=== PATIENT | male | born 1965 | race Caucasian/White ===

== ENCOUNTER 2018-01-01 12:54 | Inpatient (IN) | payer MEDICARE, OTHER ==
[2018-01-01 13:38] VITALS: BMI 38.4
--- NOTE | 2018-01-01 14:02 | PDOC ---
History of Present Illness - General Chief Complaint: Shortness of Breath Stated Complaint: SOB, SWOLLEN LEGS Time Seen by Provider: 01/01/18 13:42 - History of Present Illness Initial Comments: 01/01/18 15:22 The patient is a 52 year old male with a history of HTN, HLD, who presents for evaluation of SOB and lower extremity swelling. The patient reports that he does not normally follow with a physician and does not know his medical history very well. He reports a 2 week history of worsening lower extremity swelling. He also states a 1 week history of worsening SOB and dyspnea on exertion with orthopnea prompting his presentation to the ED for evaluation. The patient states that he has been having difficulty sleeping due to SOB at night as well and now can only walk 5 steps without becoming SOB. He denies fevers, chills, chest pain, nausea, vomiting, abdominal pain, or changes with urination or bowel movements. Past History - Past Medical History Allergies/Adverse Reactions: Allergies Allergy/AdvReac Type Severity Reaction Status Date / Time No Known Allergies Allergy Verified 01/01/18 13:22 Home Medications: Ambulatory Orders Metoprolol Succinate 25 mg PO DAILY 01/01/18 - Suicide/Smoking/Psychosocial Hx Smoking History: Never smoked Have you smoked in the past 12 months: No Information on smoking cessation initiated: No Hx Alcohol Use: No Drug/Substance Use Hx: No Review of Systems - Review of Systems Comments:: 01/01/18 15:32 Constitutional: No fevers, chills, fatigue, malaise HEENT: No Rhinorrhea, nasal congestion, visual changes Cardiovascular: No chest pain, syncope, palpitations, lightheadedness Respiratory: SOB. No Cough, Hemoptysis, Gastrointestinal: No Abdominal pain, Nausea, Vomiting, Constipation, Diarrhea, Melena Genitourinary: No Dysuria, Frequency, Urgency, Hesitancy, Hematuria, Flank pain Musculoskeletal: No Myalgia, arthralgia Skin: Lower extremity swelling. No rashes, itching, bruising, pallor Neurologic: No Headache, Dizziness, Numbness, Weakness, or Tingling Psychiatric: No Hallucinations. No SI or HI *Physical Exam - Vital Signs Last Vital Signs Temp Pulse Resp BP Pulse Ox 98.6 F 105 H 26 H 141/104 98 01/01/18 13:23 01/01/18 13:23 01/01/18 13:23 01/01/18 13:23 01/01/18 13:23 - Physical Exam Comments: 01/01/18 15:33 General Appearance: Nourished. No Apparent Distress HEENT: EOMI, VINOD. No Pharyngeal Erythema, Tonsillar Exudate, Tonsillar Erythema Neck: No Cervical Lymphadenopathy Respiratory/Chest: Diffuse crackles and rales auscultated on exam Cardiovascular: Regular Rhythm, Regular Rate. Systolic murmur noted on exam. No Gallops, Rubs Gastrointestinal/Abdominal: 3+ pitting abdominal edema noted. Normal Bowel Sounds, Soft. No Guarding, Rebound, Tenderness Musculoskeletal: No CVA Tenderness Extremity: 3+ pitting edema in the lower extremities. Normal Capillary Refill Integumentary: Normal Color, Dry, Warm Neurologic: Fully Oriented, Alert, Normal Mood/Affect, Normal Response, Heart Score/ECG Review #1 ECG reviewed & interpreted by me at: 15:36 (Sinus Tachycardic) General ECG Interpretation: Sinus Rhythm, Normal Rate, Normal Intervals, No acute ischemic changes ED Treatment Course - LABORATORY CBC & Chemistry Diagram: 01/01/18 14:25 01/01/18 14:25 Medical Decision Making - Medical Decision Making 01/01/18 15:36 The patient is a 52 year old male with a history of HTN, HLD, who presents for evaluation of SOB and lower extremity swelling. Differential includes but is not limited to: CHF exacerbation, COPD, ACS, pneumonia, infectious, metabolic derangement. Given the patient's physical exam, it is likely the patient symptoms are due to a CHF exacerbation. We will obtain a cbc, cmp, troponin, bnp, ekg, chest plain film to evaluate further. We will treat the patient with lasix here in the ED. We will continue to monitor and reassess. 01/01/18 18:35 CBC is unremarkable. cmp is unremarkable, troponin is elevated to .15 and bnp is elevated to 2200. Chest plain film demonstrates signs of congestive findings concerning for chf as read by our radiologist. We believe the patient requires admission for further management of his symptoms. We discussed the case with Dr. Alvarez who accepted the patient for admission. *DC/Admit/Observation/Transfer Diagnosis at time of Disposition: CHF (congestive heart failure) Qualifiers: Heart failure type: unspecified Heart failure chronicity: acute Qualified Code( s): I50.9 - Heart failure, unspecified - Discharge Dispostion Condition at time of disposition: Guarded Admit: Yes - Referrals - Patient Instructions - Post Discharge Activity
--- NOTE | 2018-01-01 14:13 | PDOC ---
Attending Attestation - HPI HPI: 01/01/18 14:59 The patient is a 52 year old male with a significant PMH of HTN, HLD, and CHF who presents to the emergency department with lower extremity swelling for the past 2 weeks and SOB, dyspnea on exertion, and orthopnea for the past week. The patient states he does not follow up with a PCP. The patient is not currently on any water pills. The patient denies chest pain, headache and dizziness. Denies fever, chills, nausea, vomit, diarrhea and constipation. Denies dysuria, frequency, urgency and hematuria. Allergies: NKA Past surgical history: None reported Social history: No reported alcohol, drug or cigarette use. <Radha Roth - Last Filed: 01/01/18 14:59> - Resident Resident Name: Guy Avila - ED Attending Attestation I have performed the following: I have examined & evaluated the patient, The case was reviewed & discussed with the resident, I agree w/resident's findings & plan, Exceptions are as noted - Physicial Exam PE: GENERAL: Awake, alert, and fully oriented, in no acute distress HEAD: No signs of trauma EYES: PERRLA, EOMI, sclera anicteric, conjunctiva clear ENT: Auricles normal inspection, hearing grossly normal, nares patent, oropharynx clear without exudates. Moist mucosa NECK: Normal ROM, supple, no lymphadenopathy, JVD, or masses LUNGS: +Crackles at bases B/L. Good air entry B/L. HEART: Regular rate and rhythm, normal S1 and S2, no murmurs, rubs or gallops ABDOMEN: Soft, nontender, normoactive bowel sounds. No guarding, no rebound. No masses EXTREMITIES: Normal range of motion, 3+ edema to the level of lower abdomen. No clubbing or cyanosis. No cords, erythema, or tenderness NEUROLOGICAL: Cranial nerves II through XII grossly intact. Normal speech, normal gait SKIN: Warm, Dry, normal turgor, no rashes or lesions noted. - Medical Decision Making Pt with clear signs of CHF, likely due to med nonadherence. Will send labs, obtain CXR and plan for admission. <Angelica Adams - Last Filed: 01/02/18 11:17>
[2018-01-01] MEDS ORDERED: FUROSEMIDE 40 MG/4 ML INJECTABLE VIAL IVPUSH ONE (14:21)
[2018-01-01] MEDS ORDERED: FUROSEMIDE 40 MG/4 ML INJECTABLE VIAL ONE (14:38)
[2018-01-01 15:22] LABS: ALBUMIN 3.1 g/dl (3.4-5.0); ANION GAP 6 (8-16); BILIRUBIN,TOTAL 1.1 mg/dL (0.2-1.0); BLOOD UREA NITROGEN 9 mg/dL (7-18); CALCIUM 8.6 mg/dL (8.5-10.1); CHLORIDE 99 mmol/L (98-107); CO2 29 mmol/L (21-32); CREATININE 0.8 mg/dL (0.7-1.3); GLUCOSE,RANDOM 90 mg/dL (74-106); POTASSIUM 4.1 mmol/L (3.5-5.1); SGOT/AST 39 U/L (15-37); SGPT/ALT 10 U/L (12-78); SODIUM 134 mmol/L (136-145); TOT PROT 9.6 g/dl (6.4-8.2)
[2018-01-01 15:24] LABS: ALK PHOS 95 U/L (45-117)
[2018-01-01 15:26] LABS: BASO % 1.1 % (0-2.0); EOS % 1.1 % (0-4.5); HEMATOCRIT 28.2 % (35.4-49); HEMOGLOBIN 8.7 GM/dL (11.7-16.9); LYMPH % 26.7 % (8-40); MCH 21.9 pg (25.7-33.7); MCHC 30.7 g/dl (32.0-35.9); MEAN CELL VOLUME 71.4 fl (80-96); MEAN PLT VOLUME 8.7 fl (7.5-11.1); MONO % 15.3 % (3.8-10.2); NEUT % 55.8 % (42.8-82.8); PLATELET COUNT 101 K/MM3 (134-434); RBC 3.95 M/mm3 (4.00-5.60); RDW 24.4 % (11.9-15.9); WHITE BLOOD COUNT 4.4 K/mm3 (4.0-10.0)
--- NOTE | 2018-01-01 18:20 | HP ---
Admitting History and Physical - Primary Care Physician PCP: Ekaterina Alvarez - Admission History of Present Illness: 52 year old male with a history of HTN, HLD, who presents for evaluation of SOB and lower extremity swelling. The patient reports that he does not normally follow with a physician and does not know his medical history very well. He reports a 2 week history of worsening lower extremity swelling. He also states a 1 week history of worsening SOB and dyspnea on exertion with orthopnea prompting his presentation to the ED for evaluation. The patient states that he has been having difficulty sleeping due to SOB at night as well and now can only walk 5 steps without becoming SOB. - Past Medical History Cardiovascular: Yes: HTN, Hyperlipdemia - Smoking History Smoking history: Never smoked Have you smoked in the past 12 months: No - Alcohol/Substance Use Hx Alcohol Use: No Home Medications - Allergies Allergies/Adverse Reactions: Allergies Allergy/AdvReac Type Severity Reaction Status Date / Time No Known Allergies Allergy Verified 01/01/18 13:22 - Home Medications Home Medications: Ambulatory Orders Metoprolol Succinate 25 mg PO DAILY 01/01/18 Physical Examination Vital Signs: Vital Signs Temperature 98.6 F 01/01/18 13:23 Pulse Rate 107 H 01/01/18 16:17 Respiratory Rate 24 01/01/18 16:17 Blood Pressure 129/90 01/01/18 16:17 O2 Sat by Pulse Oximetry (%) 96 01/01/18 16:17 Constitutional: Yes: No Distress HENT: Yes: Atraumatic Neck: Yes: Supple Cardiovascular: Yes: Regular Rate and Rhythm Respiratory: Yes: CTA Bilaterally Gastrointestinal: Yes: Normal Bowel Sounds Edema: Yes Edema: LLE: 2+, RLE: 2+ Neurological: Yes: Alert, Oriented Labs: CBC, BMP 01/01/18 14:25 01/01/18 14:25 Problem List - Problems (1) CHF (congestive heart failure) Assessment/Plan: on iv lasix monitor cardiology consult Code(s): I50.9 - HEART FAILURE, UNSPECIFIED Qualifiers: Heart failure type: systolic Heart failure chronicity: acute Qualified Code(s): I50.21 - Acute systolic (congestive) heart failure (2) Subendocardial ischemia Assessment/Plan: fu troponins Code(s): I24.8 - OTHER FORMS OF ACUTE ISCHEMIC HEART DISEASE (3) Thrombocytopenia Assessment/Plan: monitor Code(s): D69.6 - THROMBOCYTOPENIA, UNSPECIFIED (4) Cellulitis of right leg Assessment/Plan: iv abx id consult Code(s): L03.115 - CELLULITIS OF RIGHT LOWER LIMB Assessment/Plan Laboratory Tests 01/01/18 01/01/18 14:25 14:25 WBC 4.4 RBC 3.95 L Hgb 8.7 L Hct 28.2 L MCV 71.4 L MCH 21.9 L MCHC 30.7 L RDW 24.4 H Plt Count 101 L MPV 8.7 Neutrophils % 55.8 Lymphocytes % 26.7 Monocytes % 15.3 H Eosinophils % 1.1 Basophils % 1.1 Sodium 134 L Potassium 4.1 Chloride 99 Carbon Dioxide 29 Anion Gap 6 L BUN 9 Creatinine 0.8 Creat Clearance w eGFR > 60 Random Glucose 90 Calcium 8.6 Total Bilirubin 1.1 H AST 39 H ALT 10 L Alkaline Phosphatase 95 Creatine Kinase 250 Creatine Kinase Index 2.9 CK-MB (CK-2) 7.376 H Troponin I 0.15 H B-Natriuretic Peptide 2294.20 H Total Protein 9.6 H Albumin 3.1 L Active Medications Generic Name Dose Route Start Last Admin Trade Name Freq PRN Reason Stop Dose Admin Furosemide 40 mg 01/02/18 14:00 01/03/18 14:18 Lasix Injection - IVPUSH 40 mg BIDLASIX [facility]ION Administration Heparin Sodium (Porcine) 5,000 unit 01/01/18 22:00 01/03/18 09:01 Heparin - SQ Not Given BID ZION Ampicillin Sodium/Sulbactam 100 mls @ 200 mls/hr 01/02/18 18:00 01/03/18 09: 01 Sodium 3 gm/ Sodium Chloride IVPB 200 mls/hr Q8H-IV ZION Administration Losartan Potassium 25 mg 01/02/18 12:30 01/03/18 09:01 Cozaar - PO 25 mg DAILY [facility]ION Administration Metoprolol Succinate 25 mg 01/02/18 10:00 01/03/18 09:01 Toprol Xl - PO 25 mg DAILY [facility]ION Administration Spironolactone 25 mg 01/03/18 10:30 01/03/18 11:23 Aldactone - PO 25 mg DAILY ZION Administration
[2018-01-01] MEDS ORDERED: CEFTRIAXONE 1 G/50 ML PREMIX 50 ML IVPB SCH (18:30)
[2018-01-01] MEDS: HEPARIN NA (PORCINE) 5,000 UNITS/ML 1ML VIAL SQ SCH (21:55)
[2018-01-02 06:21] LABS: BASO % 0.9 % (0-2.0); HEMATOCRIT 25.5 % (35.4-49); HEMOGLOBIN 8.1 GM/dL (11.7-16.9); LYMPH % 24.3 % (8-40); MCH 22.3 pg (25.7-33.7); MCHC 31.8 g/dl (32.0-35.9); MEAN PLT VOLUME 8.7 fl (7.5-11.1); MONO % 19.8 % (3.8-10.2); PLATELET COUNT 98 K/MM3 (134-434); RBC 3.64 M/mm3 (4.00-5.60); RDW 24.2 % (11.9-15.9); WHITE BLOOD COUNT 4.2 K/mm3 (4.0-10.0)
[2018-01-02 06:38] LABS: ADD RBC MORPHOLOGY YES
[2018-01-02 06:40] LABS: ANISOCYTOSIS 3+
[2018-01-02 06:56] LABS: ALBUMIN 2.8 g/dl (3.4-5.0); BLOOD UREA NITROGEN 13 mg/dL (7-18); CHLORIDE 96 mmol/L (98-107); GLUCOSE,RANDOM 107 mg/dL (74-106); POTASSIUM 3.7 mmol/L (3.5-5.1); SGOT/AST 43 U/L (15-37); SGPT/ALT 9 U/L (12-78); SODIUM 133 mmol/L (136-145)
[2018-01-02 06:58] LABS: ALK PHOS 85 U/L (45-117); ANION GAP 6 (8-16); BILIRUBIN,TOTAL 1.4 mg/dL (0.2-1.0); CO2 31 mmol/L (21-32); CREATININE 0.9 mg/dL (0.7-1.3)
--- NOTE | 2018-01-02 08:57 | EKG ---
Test Reason : Blood Pressure : / mmHG Vent. Rate : 105 BPM Atrial Rate : 105 BPM P-R Int : 158 ms QRS Dur : 100 ms QT Int : 364 ms P-R-T Axes : 042 -01 077 degrees QTc Int : 481 ms SINUS TACHYCARDIA POSSIBLE LEFT ATRIAL ENLARGEMENT BORDERLINE ECG NO PREVIOUS ECGS AVAILABLE Confirmed by Jacob Dc MD ([id number]) on 01/02/2018 8:56:53 AM Referred By: Confirmed By:Jacob Dc MD
--- NOTE | 2018-01-02 08:57 | CON.CARD ---
Consult Consult Specialty:: Cardiology Referred by:: Ekaterina Alvarez MD Reason for Consultation:: CHF - History of Present Illness Chief Complaint: Dyspnea on exertion, orthopnea History of Present Illness: 52 year old male with a history of HTN, HLD, who presents for evaluation of SOB with exertion, orthopnea and lower extremity swelling for last several weeks with decreased exercise capacity, does not have medcation f/u, reports diet indiscretion and denies chest pain, near or true syncope, palpitations, PND, denies NSAID use. - History Source History Provided By: Patient Limitations to Obtaining History: No Limitations - Past Medical History Cardio/Vascular: Yes: HTN, Hyperlipdemia - Alcohol/Substance Use Hx Alcohol Use: No - Smoking History Smoking history: Never smoked Have you smoked in the past 12 months: No Home Medications - Allergies Allergies/Adverse Reactions: Allergies Allergy/AdvReac Type Severity Reaction Status Date / Time No Known Allergies Allergy Verified 01/01/18 13:22 - Home Medications Home Medications: Ambulatory Orders Metoprolol Succinate 25 mg PO DAILY 01/01/18 Review of Systems - Review of Systems Cardiovascular: reports: Edema, Shortness of Breath Respiratory: reports: Orthopnea Vital Signs: Vital Signs Temperature 98.5 F 01/02/18 05:59 Pulse Rate 104 H 01/02/18 05:59 Respiratory Rate 20 01/02/18 05:59 Blood Pressure 119/81 01/02/18 05:59 O2 Sat by Pulse Oximetry (%) 95 01/01/18 21:00 Constitutional: Yes: No Distress, Calm Respiratory: Yes: Regular, Diminished Gastrointestinal: Yes: Normal Bowel Sounds, Soft Cardiovascular: Yes: Regular Rate and Rhythm JVD: No Carotid Bruit: No Heart Sounds: Yes: S1, S2 Murmur: Yes: Systolic Murmur, Grade 1 Edema: Yes Edema: LLE: 2+, RLE: 2+ - Other Data Labs, Other Data: CBC, BMP 01/02/18 06:05 01/02/18 06:05 Troponin, BNP 01/01/18 14:25 Troponin I 0.15 H B-Natriuretic Peptide 2294.20 H Troponin, BNP 01/01/18 14:25 Troponin I 0.15 H B-Natriuretic Peptide 2294.20 H NSR LAE Imaging - Results Chest X-ray: Report Reviewed (CHF) Problem List - Problems (1) Subendocardial ischemia Code(s): I24.8 - OTHER FORMS OF ACUTE ISCHEMIC HEART DISEASE (2) Anemia Code(s): D64.9 - ANEMIA, UNSPECIFIED Qualifiers: Anemia type: unspecified type Qualified Code(s): D64.9 - Anemia, unspecified (3) Thrombocytopenia Code(s): D69.6 - THROMBOCYTOPENIA, UNSPECIFIED (4) CHF (congestive heart failure) Code(s): I50.9 - HEART FAILURE, UNSPECIFIED Qualifiers: Heart failure type: unspecified Heart failure chronicity: acute Qualified Code(s): I50.9 - Heart failure, unspecified Assessment/Plan 1. Acute on chronic diastolic failure 2. Subendocardial ischemia 3. Anemia, thrombocytopenia P:1. IV diuresis with monitor diuretic response, renal fxn, electrolytes 2. Trend trops to document peak 3. Continue Toprol XL 25 qd, start losartan 25 qd with uptitration as hemodynamics tolerate 4. Thank you for consultative opportunity
[2018-01-02] MEDS ORDERED: PT OWN MED DRAWER 7, Y5N ONE (09:57)
[2018-01-02] MEDS ORDERED: FUROSEMIDE 40 MG/4 ML INJECTABLE VIAL IVPUSH SCH (10:00)
[2018-01-02] MEDS: metoPROLOL SUCCINATE 25 MG TAB.SR.24H (FP) PO SCH (10:39)
[2018-01-02] MEDS: HEPARIN NA (PORCINE) 5,000 UNITS/ML 1ML VIAL SQ SCH ×2 (10:39→21:00)
[2018-01-02] MEDS: LOSARTAN POTASSIUM 25 MG TABLET PO SCH (13:32)
[2018-01-02] MEDS: FUROSEMIDE 40 MG/4 ML INJECTABLE VIAL IVPUSH SCH (13:32)
--- NOTE | 2018-01-02 16:00 | CON.ID ---
Consult Consult Specialty:: infectious diseases Reason for Consultation:: cellulitis of the rt leg - History of Present Illness Chief Complaint: Dyspnea on exertion, orthopnea,swelling and redness of the legs History of Present Illness: 52 year old male with a history of HTN, HLD, who presents for evaluation of SOB with exertion, orthopnea and lower extremity swelling for last several weeks with decreased exercise capacity, patient does not follow up much patient also noted that the right leg was more swollen and red otherwise he feels ok. patient mentions that he has been having this swelling off and on for quite some time currently he is stable - History Source History Provided By: Patient Limitations to Obtaining History: No Limitations - Past Medical History Cardio/Vascular: Yes: HTN, Hyperlipdemia - Alcohol/Substance Use Hx Alcohol Use: No - Smoking History Smoking history: Never smoked Have you smoked in the past 12 months: No Home Medications - Allergies Allergies/Adverse Reactions: Allergies Allergy/AdvReac Type Severity Reaction Status Date / Time No Known Allergies Allergy Verified 01/01/18 13:22 - Home Medications Home Medications: Ambulatory Orders Metoprolol Succinate 25 mg PO DAILY 01/01/18 Review of Systems - Review of Systems Constitutional: reports: No Symptoms Eyes: reports: No Symptoms HENT: reports: No Symptoms Neck: reports: No Symptoms Cardiovascular: reports: Shortness of Breath Respiratory: reports: SOB, SOB on Exertion Gastrointestinal: reports: No Symptoms Genitourinary: reports: No Symptoms Musculoskeletal: reports: Other (edema of the legs) Integumentary: reports: Change in Color, Erythema (rt leg) Neurological: reports: No Symptoms Endocrine: reports: No Symptoms Hematology/Lymphatic: reports: No Symptoms Psychiatric: reports: No Symptoms Physical Exam Vital Signs: Vital Signs Temperature 98.1 F 01/02/18 14:00 Pulse Rate 87 01/02/18 14:00 Respiratory Rate 20 01/02/18 13:31 Blood Pressure 100/74 01/02/18 14:00 O2 Sat by Pulse Oximetry (%) 95 01/02/18 09:00 Constitutional: Yes: Well Nourished, No Distress, Calm Eyes: Yes: Conjunctiva Clear HENT: Yes: Atraumatic Cardiovascular: Yes: S1, S2, Other (murmur present) Respiratory: Yes: Regular, CTA Bilaterally Gastrointestinal: Yes: Normal Bowel Sounds, Soft Musculoskeletal: Yes: Other Extremities: Yes: Erythema (rt) Edema: LLE: 2+, RLE: 2+ Integumentary: Yes: Erythema Neurological: Yes: Alert, Oriented Labs: CBC, BMP 01/02/18 06:05 01/02/18 06:05 Imaging - Results Chest X-ray: Report Reviewed, Image Reviewed Assessment/Plan Problem List - Problems (1) cellulitis of the rt ext (2) Anemia Code(s): D64.9 - ANEMIA, UNSPECIFIED Qualifiers: Anemia type: unspecified type Qualified Code(s): D64.9 - Anemia, unspecified (3) Thrombocytopenia Code(s): D69.6 - THROMBOCYTOPENIA, UNSPECIFIED (4) CHF (congestive heart failure) Code(s): I50.9 - HEART FAILURE, UNSPECIFIED Qualifiers: Heart failure type: unspecified Heart failure chronicity: acute Qualified Code(s): I50.9 - Heart failure, unspecified plan continue as per cardiology will start patient on unasyn rest as per primary diuresis
--- NOTE | 2018-01-02 17:22 | PN ---
Progress Note, Physician History of Present Illness: feeling good - Current Medication List Current Medications: Active Medications Furosemide (Lasix Injection -) 40 mg IVPUSH BIDLASIX [facility] Last Admin: 01/02/18 13:32 Dose: 40 mg Heparin Sodium (Porcine) (Heparin -) 5,000 unit SQ BID [facility] Last Admin: 01/02/18 10:39 Dose: 5,000 unit Ampicillin Sodium/Sulbactam (Sodium 3 gm/ Sodium Chloride) 100 mls @ 200 mls/ hr IVPB Q8H-IV ZION Losartan Potassium (Cozaar -) 25 mg PO DAILY [facility] Last Admin: 01/02/18 13:32 Dose: Not Given Metoprolol Succinate (Toprol Xl -) 25 mg PO DAILY [facility] Last Admin: 01/02/18 10:39 Dose: 25 mg - Objective Vital Signs: Vital Signs Temperature 98.1 F 01/02/18 14:00 Pulse Rate 87 01/02/18 14:00 Respiratory Rate 20 01/02/18 13:31 Blood Pressure 100/74 01/02/18 14:00 O2 Sat by Pulse Oximetry (%) 95 01/02/18 09:00 Constitutional: Yes: No Distress HENT: Yes: Atraumatic Neck: Yes: Supple Cardiovascular: Yes: Regular Rate and Rhythm Respiratory: Yes: CTA Bilaterally Gastrointestinal: Yes: Normal Bowel Sounds Edema: Yes Neurological: Yes: Alert, Oriented Labs: CBC, BMP 01/02/18 06:05 01/02/18 06:05 Problem List - Problems (1) CHF (congestive heart failure) Assessment/Plan: on iv lasix monitor cardiology consult Code(s): I50.9 - HEART FAILURE, UNSPECIFIED Qualifiers: Heart failure type: systolic Heart failure chronicity: acute Qualified Code(s): I50.21 - Acute systolic (congestive) heart failure (2) Subendocardial ischemia Assessment/Plan: fu troponins Code(s): I24.8 - OTHER FORMS OF ACUTE ISCHEMIC HEART DISEASE (3) Thrombocytopenia Assessment/Plan: monitor Code(s): D69.6 - THROMBOCYTOPENIA, UNSPECIFIED (4) Cellulitis of right leg Assessment/Plan: iv abx id consult Code(s): L03.115 - CELLULITIS OF RIGHT LOWER LIMB
[2018-01-02] MEDS: AMPICILLIN NA/SULBACTAM NA 3 GM in SODIUM CHLORIDE 100 ML IVPB SCH (17:48)
[2018-01-02] MEDS ORDERED: ALBUTEROL SO4 2.5/IPRATROPIUM 0.5 INH SOL 3 ML VIAL.NEB. NEB ONE (20:48)
[2018-01-03] MEDS: AMPICILLIN NA/SULBACTAM NA 3 GM in SODIUM CHLORIDE 100 ML IVPB SCH ×3 (01:46→17:43)
[2018-01-03] MEDS: FUROSEMIDE 40 MG/4 ML INJECTABLE VIAL IVPUSH SCH ×2 (05:22→14:18)
[2018-01-03] MEDS: LOSARTAN POTASSIUM 25 MG TABLET PO SCH (09:01)
[2018-01-03] MEDS: metoPROLOL SUCCINATE 25 MG TAB.SR.24H (FP) PO SCH (09:01)
[2018-01-03] MEDS: HEPARIN NA (PORCINE) 5,000 UNITS/ML 1ML VIAL SQ SCH ×2 (09:01→21:18)
--- NOTE | 2018-01-03 10:11 | PN ---
Progress Note, Physician History of Present Illness: SOB with exertion, orthopnea and lower extremity swelling improving with diuresis. - Current Medication List Current Medications: Active Medications Furosemide (Lasix Injection -) 40 mg IVPUSH BIDLASIX [facility] Last Admin: 01/03/18 05:22 Dose: 40 mg Heparin Sodium (Porcine) (Heparin -) 5,000 unit SQ BID [facility] Last Admin: 01/03/18 09:01 Dose: Not Given Ampicillin Sodium/Sulbactam (Sodium 3 gm/ Sodium Chloride) 100 mls @ 200 mls/ hr IVPB Q8H-IV [facility] Last Admin: 01/03/18 09:01 Dose: 200 mls/hr Losartan Potassium (Cozaar -) 25 mg PO DAILY [facility] Last Admin: 01/03/18 09:01 Dose: 25 mg Metoprolol Succinate (Toprol Xl -) 25 mg PO DAILY [facility] Last Admin: 01/03/18 09:01 Dose: 25 mg - Objective Vital Signs: Vital Signs Temperature 98 F 01/03/18 07:50 Pulse Rate 88 01/03/18 07:50 Respiratory Rate 20 01/03/18 08:00 Blood Pressure 123/80 01/03/18 07:50 O2 Sat by Pulse Oximetry (%) 94 L 01/03/18 08:00 Constitutional: Yes: No Distress, Calm Neck: Yes: Supple Cardiovascular: Yes: Regular Rate and Rhythm, Murmur (2/6 SM) Respiratory: Yes: Regular, Diminished Gastrointestinal: Yes: Normal Bowel Sounds, Soft, Abdomen, Obese Edema: Yes Edema: LLE: 1+, RLE: 1+ Labs: CBC, BMP 01/02/18 06:05 01/02/18 06:05 Problem List - Problems (1) Subendocardial ischemia Code(s): I24.8 - OTHER FORMS OF ACUTE ISCHEMIC HEART DISEASE (2) Anemia Code(s): D64.9 - ANEMIA, UNSPECIFIED Qualifiers: Anemia type: unspecified type Qualified Code(s): D64.9 - Anemia, unspecified (3) Thrombocytopenia Code(s): D69.6 - THROMBOCYTOPENIA, UNSPECIFIED (4) CHF (congestive heart failure) Code(s): I50.9 - HEART FAILURE, UNSPECIFIED Qualifiers: Heart failure type: systolic Heart failure chronicity: acute Qualified Code(s): I50.21 - Acute systolic (congestive) heart failure (5) Aortic stenosis, severe Code(s): I35.0 - NONRHEUMATIC AORTIC (VALVE) STENOSIS Assessment/Plan 01/02/18 Echo: Moderate dilated LV with severely decreased LV fxn, normal RV size and fxn, mod pulm HTN, mod-severe aortic stenosis DIANA 0.66 cm^2, MG 34 mmHg 1. Acute on chronic systolic failure 2. Moderate to severe aortic valve stenosis 2. Subendocardial ischemia 3. Anemia, thrombocytopenia P:1. IV diuresis with monitor diuretic response, renal fxn, electrolytes 2. Trops have peaked 3. Continue Toprol XL 25 qd, losartan 25 qd and add aldactone 25 qd with uptitration as hemodynamics tolerate 4. Eventually R&LHc for evaluation of cardiomyopathy, severity of aortic stenosis (transvalvular aortic valve gradient) once euvolemic
[2018-01-03] MEDS: SPIRONOLACTONE 25 MG TABLET (FP) PO SCH (11:23)
--- NOTE | 2018-01-03 17:07 | EKG ---
Test Reason : Blood Pressure : / mmHG Vent. Rate : 083 BPM Atrial Rate : 083 BPM P-R Int : 162 ms QRS Dur : 104 ms QT Int : 438 ms P-R-T Axes : 000 176 110 degrees QTc Int : 514 ms NORMAL SINUS RHYTHM RIGHT AXIS DEVIATION PROLONGED QT ABNORMAL ECG WHEN COMPARED WITH ECG OF 01-JAN-2018 14:24, QRS AXIS SHIFTED RIGHT Confirmed by HELGA DEL ANGEL MD ([id number]) on 01/03/2018 5:06:50 PM Referred By: KARL SAMUEL Confirmed By:HELGA DEL ANGEL MD
--- NOTE | 2018-01-03 17:35 | PN ---
Progress Note, Physician History of Present Illness: doing well - Current Medication List Current Medications: Active Medications Furosemide (Lasix Injection -) 40 mg IVPUSH BIDLASIX [facility] Last Admin: 01/03/18 14:18 Dose: 40 mg Heparin Sodium (Porcine) (Heparin -) 5,000 unit SQ BID [facility] Last Admin: 01/03/18 09:01 Dose: Not Given Ampicillin Sodium/Sulbactam (Sodium 3 gm/ Sodium Chloride) 100 mls @ 200 mls/ hr IVPB Q8H-IV [facility] Last Admin: 01/03/18 09:01 Dose: 200 mls/hr Losartan Potassium (Cozaar -) 25 mg PO DAILY [facility] Last Admin: 01/03/18 09:01 Dose: 25 mg Metoprolol Succinate (Toprol Xl -) 25 mg PO DAILY [facility] Last Admin: 01/03/18 09:01 Dose: 25 mg Spironolactone (Aldactone -) 25 mg PO DAILY [facility] Last Admin: 01/03/18 11:23 Dose: 25 mg - Objective Vital Signs: Vital Signs Temperature 99.1 F 01/03/18 13:25 Pulse Rate 82 01/03/18 13:25 Respiratory Rate 20 01/03/18 13:25 Blood Pressure 93/69 01/03/18 13:25 O2 Sat by Pulse Oximetry (%) 94 L 01/03/18 08:00 Constitutional: Yes: No Distress HENT: Yes: Atraumatic Neck: Yes: Supple Cardiovascular: Yes: Regular Rate and Rhythm Respiratory: Yes: CTA Bilaterally Gastrointestinal: Yes: Normal Bowel Sounds Extremities: Yes: Other (cellulitis R carolin improving) Edema: LLE: 2+, RLE: 2+ Peripheral Pulses WNL: Yes Neurological: Yes: Alert, Oriented Labs: CBC, BMP 01/02/18 06:05 01/02/18 06:05 Problem List - Problems (1) CHF (congestive heart failure) Assessment/Plan: on iv lasix monitor cardiology consult Code(s): I50.9 - HEART FAILURE, UNSPECIFIED Qualifiers: Heart failure type: systolic Heart failure chronicity: acute Qualified Code(s): I50.21 - Acute systolic (congestive) heart failure (2) Subendocardial ischemia Assessment/Plan: fu troponins Code(s): I24.8 - OTHER FORMS OF ACUTE ISCHEMIC HEART DISEASE (3) Thrombocytopenia Assessment/Plan: monitor Code(s): D69.6 - THROMBOCYTOPENIA, UNSPECIFIED (4) Cellulitis of right leg Assessment/Plan: iv abx id consult Code(s): L03.115 - CELLULITIS OF RIGHT LOWER LIMB (5) Aortic stenosis, severe Assessment/Plan: for cardiac cath per cardiology Code(s): I35.0 - NONRHEUMATIC AORTIC (VALVE) STENOSIS
[2018-01-04] MEDS ORDERED: PT OWN MED DRAWER 7, Y5N ONE ×2 (01:32→17:27)
[2018-01-04] MEDS: AMPICILLIN NA/SULBACTAM NA 3 GM in SODIUM CHLORIDE 100 ML IVPB SCH ×3 (01:39→17:33)
[2018-01-04] MEDS: FUROSEMIDE 40 MG/4 ML INJECTABLE VIAL IVPUSH SCH (06:40)
[2018-01-04 06:58] LABS: HEMATOCRIT 26.3 % (35.4-49); HEMOGLOBIN 7.9 GM/dL (11.7-16.9); MCH 21.5 pg (25.7-33.7); MCHC 30.1 g/dl (32.0-35.9); MEAN CELL VOLUME 71.4 fl (80-96); PLATELET COUNT 90 K/MM3 (134-434); RBC 3.68 M/mm3 (4.00-5.60); WHITE BLOOD COUNT 4.8 K/mm3 (4.0-10.0)
[2018-01-04 07:00] LABS: ANION GAP 10 (8-16); BLOOD UREA NITROGEN 21 mg/dL (7-18); CALCIUM 8.4 mg/dL (8.5-10.1); CHLORIDE 97 mmol/L (98-107); CO2 28 mmol/L (21-32); CREATININE 1.1 mg/dL (0.7-1.3); GLUCOSE,RANDOM 131 mg/dL (74-106); POTASSIUM 3.5 mmol/L (3.5-5.1); SODIUM 135 mmol/L (136-145)
[2018-01-04 07:08] LABS: INR 1.75 (0.82-1.09); PROTHROMBIN TIME (PATIENT) 19.8 SEC (9.98-11.88)
[2018-01-04] MEDS: LOSARTAN POTASSIUM 25 MG TABLET PO SCH (09:32)
[2018-01-04] MEDS: metoPROLOL SUCCINATE 25 MG TAB.SR.24H (FP) PO SCH (09:32)
[2018-01-04] MEDS: HEPARIN NA (PORCINE) 5,000 UNITS/ML 1ML VIAL SQ SCH ×2 (09:32→22:01)
[2018-01-04] MEDS: SPIRONOLACTONE 25 MG TABLET (FP) PO SCH (09:32)
--- NOTE | 2018-01-04 10:41 | PN ---
Progress Note, Physician History of Present Illness: SOB with exertion, orthopnea and lower extremity swelling improving with diuresis. - Current Medication List Current Medications: Active Medications Furosemide (Lasix Injection -) 40 mg IVPUSH BIDLASIX [facility] Last Admin: 01/04/18 06:40 Dose: 40 mg Heparin Sodium (Porcine) (Heparin -) 5,000 unit SQ BID [facility] Last Admin: 01/04/18 09:32 Dose: 5,000 unit Ampicillin Sodium/Sulbactam (Sodium 3 gm/ Sodium Chloride) 100 mls @ 200 mls/ hr IVPB Q8H-IV [facility] Last Admin: 01/04/18 09:31 Dose: 200 mls/hr Losartan Potassium (Cozaar -) 25 mg PO DAILY [facility] Last Admin: 01/04/18 09:32 Dose: 25 mg Metoprolol Succinate (Toprol Xl -) 25 mg PO DAILY [facility] Last Admin: 01/04/18 09:32 Dose: 25 mg Spironolactone (Aldactone -) 25 mg PO DAILY [facility] Last Admin: 01/04/18 09:32 Dose: 25 mg - Objective Vital Signs: Vital Signs Temperature 98.4 F 01/04/18 06:00 Pulse Rate 100 H 01/04/18 06:00 Respiratory Rate 20 01/04/18 06:00 Blood Pressure 102/70 01/04/18 06:00 O2 Sat by Pulse Oximetry (%) 97 01/03/18 20:31 Constitutional: Yes: No Distress, Calm Neck: Yes: Supple Cardiovascular: Yes: Regular Rate and Rhythm, Murmur (2/6) Respiratory: Yes: Regular, Diminished Gastrointestinal: Yes: Normal Bowel Sounds, Soft Edema: Yes Edema: LLE: 2+, RLE: 2+ Labs: CBC, BMP 01/04/18 05:05 01/04/18 05:05 INR, PTT INR 1.75 (0.82-1.09) H 01/04/18 05:05 - ....Imaging EKG: Report Reviewed (NSR) Problem List - Problems (1) Subendocardial ischemia Code(s): I24.8 - OTHER FORMS OF ACUTE ISCHEMIC HEART DISEASE (2) Anemia Code(s): D64.9 - ANEMIA, UNSPECIFIED Qualifiers: Anemia type: unspecified type Qualified Code(s): D64.9 - Anemia, unspecified (3) Thrombocytopenia Code(s): D69.6 - THROMBOCYTOPENIA, UNSPECIFIED (4) CHF (congestive heart failure) Code(s): I50.9 - HEART FAILURE, UNSPECIFIED Qualifiers: Heart failure type: systolic Heart failure chronicity: acute Qualified Code(s): I50.21 - Acute systolic (congestive) heart failure (5) Aortic stenosis, severe Code(s): I35.0 - NONRHEUMATIC AORTIC (VALVE) STENOSIS Assessment/Plan 01/02/18 Echo: Moderate dilated LV with severely decreased LV fxn, normal RV size and fxn, mod pulm HTN, mod-severe aortic stenosis DIANA 0.66 cm^2, MG 34 mmHg 1. Acute on chronic systolic failure improving 2. Moderate to severe aortic valve stenosis 2. Subendocardial ischemia 3. Anemia, thrombocytopenia P:1. Decrease diuresis with monitor diuretic response, renal fxn, electrolytes 2. Trops have peaked 3. Increase Toprol XL 50 qd, losartan 25 qd and aldactone 25 qd with uptitration as hemodynamics tolerate 4. R&LHc for evaluation of cardiomyopathy, severity of aortic stenosis ( transvalvular aortic valve gradient) tomorrow at [facility]
--- NOTE | 2018-01-04 11:11 | PN ---
Progress Note, Physician History of Present Illness: patient stable no new issues - Current Medication List Current Medications: Active Medications Furosemide (Lasix Injection -) 40 mg IVPUSH DAILY [facility] Heparin Sodium (Porcine) (Heparin -) 5,000 unit SQ BID [facility] Last Admin: 01/04/18 09:32 Dose: 5,000 unit Ampicillin Sodium/Sulbactam (Sodium 3 gm/ Sodium Chloride) 100 mls @ 200 mls/ hr IVPB Q8H-IV [facility] Last Admin: 01/04/18 09:31 Dose: 200 mls/hr Losartan Potassium (Cozaar -) 25 mg PO DAILY [facility] Last Admin: 01/04/18 09:32 Dose: 25 mg Metoprolol Succinate (Toprol Xl -) 25 mg PO ONCE ONE Stop: 01/04/18 11:16 Metoprolol Succinate (Toprol Xl -) 50 mg PO DAILY [facility] Spironolactone (Aldactone -) 25 mg PO DAILY [facility] Last Admin: 01/04/18 09:32 Dose: 25 mg - Objective Vital Signs: Vital Signs Temperature 99.0 F 01/04/18 10:00 Pulse Rate 98 H 01/04/18 10:00 Respiratory Rate 20 01/04/18 10:00 Blood Pressure 123/68 01/04/18 10:00 O2 Sat by Pulse Oximetry (%) 97 01/04/18 09:00 Constitutional: Yes: No Distress, Calm Cardiovascular: Yes: Regular Rate and Rhythm Respiratory: Yes: Regular, CTA Bilaterally Gastrointestinal: Yes: Normal Bowel Sounds, Soft Musculoskeletal: Yes: Other Extremities: Yes: Erythema, Other Edema: LLE: Trace, RLE: 2+ Neurological: Yes: Alert, Oriented Psychiatric: Yes: Alert, Oriented Labs: CBC, BMP 01/04/18 05:05 01/04/18 05:05 INR, PTT INR 1.75 (0.82-1.09) H 01/04/18 05:05 Assessment/Plan Problem List - Problems (1) cellulitis of the rt ext (2) Anemia Code(s): D64.9 - ANEMIA, UNSPECIFIED Qualifiers: Anemia type: unspecified type Qualified Code(s): D64.9 - Anemia, unspecified (3) Thrombocytopenia Code(s): D69.6 - THROMBOCYTOPENIA, UNSPECIFIED (4) CHF (congestive heart failure) Code(s): I50.9 - HEART FAILURE, UNSPECIFIED Qualifiers: Heart failure type: unspecified Heart failure chronicity: acute Qualified Code(s): I50.9 - Heart failure, unspecified plan continue unasyn leg improving
--- NOTE | 2018-01-04 11:14 | PN ---
Progress Note, Physician History of Present Illness: leg looks much better still with c/o of pain in the leg swelling improving patient for cardiac cath probably tomorrow - Current Medication List Current Medications: Active Medications Furosemide (Lasix Injection -) 40 mg IVPUSH DAILY [facility] Heparin Sodium (Porcine) (Heparin -) 5,000 unit SQ BID [facility] Last Admin: 01/04/18 09:32 Dose: 5,000 unit Ampicillin Sodium/Sulbactam (Sodium 3 gm/ Sodium Chloride) 100 mls @ 200 mls/ hr IVPB Q8H-IV [facility] Last Admin: 01/04/18 09:31 Dose: 200 mls/hr Losartan Potassium (Cozaar -) 25 mg PO DAILY [facility] Last Admin: 01/04/18 09:32 Dose: 25 mg Metoprolol Succinate (Toprol Xl -) 25 mg PO ONCE ONE Stop: 01/04/18 11:16 Metoprolol Succinate (Toprol Xl -) 50 mg PO DAILY [facility] Spironolactone (Aldactone -) 25 mg PO DAILY [facility] Last Admin: 01/04/18 09:32 Dose: 25 mg - Objective Vital Signs: Vital Signs Temperature 99.0 F 01/04/18 10:00 Pulse Rate 98 H 01/04/18 10:00 Respiratory Rate 20 01/04/18 10:00 Blood Pressure 123/68 01/04/18 10:00 O2 Sat by Pulse Oximetry (%) 97 01/04/18 09:00 Constitutional: Yes: Calm, Mild Distress Eyes: Yes: Conjunctiva Clear Cardiovascular: Yes: Regular Rate and Rhythm Respiratory: Yes: Regular, CTA Bilaterally Gastrointestinal: Yes: Normal Bowel Sounds, Soft Musculoskeletal: Yes: Other Extremities: Yes: Erythema (improving of rt leg) Edema: LLE: Trace, RLE: 2+ Integumentary: Yes: Erythema (resolving) Neurological: Yes: Alert, Oriented Psychiatric: Yes: Alert, Oriented Labs: CBC, BMP 01/04/18 05:05 01/04/18 05:05 INR, PTT INR 1.75 (0.82-1.09) H 01/04/18 05:05 Assessment/Plan Problem List - Problems (1) cellulitis of the rt ext (2) Anemia Code(s): D64.9 - ANEMIA, UNSPECIFIED Qualifiers: Anemia type: unspecified type Qualified Code(s): D64.9 - Anemia, unspecified (3) Thrombocytopenia Code(s): D69.6 - THROMBOCYTOPENIA, UNSPECIFIED (4) CHF (congestive heart failure) Code(s): I50.9 - HEART FAILURE, UNSPECIFIED Qualifiers: Heart failure type: unspecified Heart failure chronicity: acute Qualified Code(s): I50.9 - Heart failure, unspecified plan continue unasyn leg improving will be switched to oral augmentin tomorrow rest as per primary team
[2018-01-04] MEDS ORDERED: metoPROLOL SUCCINATE 25 MG TAB.SR.24H (FP) PO ONE (11:15)
--- NOTE | 2018-01-04 17:27 | PN ---
Progress Note, Physician History of Present Illness: doing well - Current Medication List Current Medications: Active Medications Furosemide (Lasix Injection -) 40 mg IVPUSH DAILY [facility] Heparin Sodium (Porcine) (Heparin -) 5,000 unit SQ BID [facility] Last Admin: 01/04/18 09:32 Dose: 5,000 unit Ampicillin Sodium/Sulbactam (Sodium 3 gm/ Sodium Chloride) 100 mls @ 200 mls/ hr IVPB Q8H-IV [facility] Last Admin: 01/04/18 09:31 Dose: 200 mls/hr Losartan Potassium (Cozaar -) 25 mg PO DAILY [facility] Last Admin: 01/04/18 09:32 Dose: 25 mg Metoprolol Succinate (Toprol Xl -) 50 mg PO DAILY [facility] Spironolactone (Aldactone -) 25 mg PO DAILY [facility] Last Admin: 01/04/18 09:32 Dose: 25 mg - Objective Vital Signs: Vital Signs Temperature 97.9 F 01/04/18 14:51 Pulse Rate 89 01/04/18 14:51 Respiratory Rate 20 01/04/18 14:51 Blood Pressure 105/89 01/04/18 14:51 O2 Sat by Pulse Oximetry (%) 97 01/04/18 09:00 HENT: Yes: Atraumatic Neck: Yes: Supple Cardiovascular: Yes: Regular Rate and Rhythm Respiratory: Yes: CTA Bilaterally Gastrointestinal: Yes: Normal Bowel Sounds Extremities: Yes: Other (cellulitis rlex) Edema: Yes Edema: LLE: 1+, RLE: 1+ Neurological: Yes: Alert, Oriented Labs: CBC, BMP 01/04/18 05:05 01/04/18 05:05 INR, PTT INR 1.75 (0.82-1.09) H 01/04/18 05:05 Problem List - Problems (1) CHF (congestive heart failure) Assessment/Plan: on iv lasix monitor cardiology consult Code(s): I50.9 - HEART FAILURE, UNSPECIFIED Qualifiers: Heart failure type: systolic Heart failure chronicity: acute Qualified Code(s): I50.21 - Acute systolic (congestive) heart failure (2) Subendocardial ischemia Assessment/Plan: fu troponins Code(s): I24.8 - OTHER FORMS OF ACUTE ISCHEMIC HEART DISEASE (3) Thrombocytopenia Assessment/Plan: monitor Code(s): D69.6 - THROMBOCYTOPENIA, UNSPECIFIED (4) Cellulitis of right leg Assessment/Plan: iv abx id consult Code(s): L03.115 - CELLULITIS OF RIGHT LOWER LIMB (5) Aortic stenosis, severe Assessment/Plan: for cardiac cath per cardiology Code(s): I35.0 - NONRHEUMATIC AORTIC (VALVE) STENOSIS
[2018-01-05] MEDS ORDERED: PT OWN MED DRAWER 7, Y5N ONE (02:09)
[2018-01-05] MEDS: AMPICILLIN NA/SULBACTAM NA 3 GM in SODIUM CHLORIDE 100 ML IVPB SCH ×2 (02:35→09:20)
[2018-01-05 07:24] LABS: ANION GAP 10 (8-16); BLOOD UREA NITROGEN 20 mg/dL (7-18); CALCIUM 8.4 mg/dL (8.5-10.1); CHLORIDE 96 mmol/L (98-107); CO2 27 mmol/L (21-32); GLUCOSE,RANDOM 108 mg/dL (74-106); POTASSIUM 3.6 mmol/L (3.5-5.1); SODIUM 133 mmol/L (136-145)
[2018-01-05 07:44] LABS: HEMATOCRIT 25.9 % (35.4-49); HEMOGLOBIN 7.8 GM/dL (11.7-16.9); MCH 21.8 pg (25.7-33.7); MCHC 30.1 g/dl (32.0-35.9); MEAN CELL VOLUME 72.5 fl (80-96); MEAN PLT VOLUME 8.5 fl (7.5-11.1); PLATELET COUNT 89 K/MM3 (134-434); RBC 3.57 M/mm3 (4.00-5.60); RDW 24.2 % (11.9-15.9)
[2018-01-05] MEDS: LOSARTAN POTASSIUM 25 MG TABLET PO SCH (09:19)
[2018-01-05] MEDS: HEPARIN NA (PORCINE) 5,000 UNITS/ML 1ML VIAL SQ SCH (09:19)
[2018-01-05] MEDS: SPIRONOLACTONE 25 MG TABLET (FP) PO SCH (09:19)
[2018-01-05] MEDS ORDERED: FUROSEMIDE 40 MG/4 ML INJECTABLE VIAL IVPUSH SCH (10:00)
[2018-01-05 10:28] VITALS: BP 109/67; PULSE 89; TEMP 98.5
--- NOTE | 2018-01-05 11:42 | PN ---
Progress Note, Physician History of Present Illness: SOB with exertion, orthopnea and lower extremity swelling improving with diuresis. - Current Medication List Current Medications: Active Medications Furosemide (Lasix Injection -) 40 mg IVPUSH DAILY [facility] Last Admin: 01/05/18 09:19 Dose: 40 mg Heparin Sodium (Porcine) (Heparin -) 5,000 unit SQ BID [facility] Last Admin: 01/05/18 09:19 Dose: Not Given Ampicillin Sodium/Sulbactam (Sodium 3 gm/ Sodium Chloride) 100 mls @ 200 mls/ hr IVPB Q8H-IV [facility] Last Admin: 01/05/18 09:20 Dose: 200 mls/hr Losartan Potassium (Cozaar -) 25 mg PO DAILY [facility] Last Admin: 01/05/18 09:19 Dose: 25 mg Metoprolol Succinate (Toprol Xl -) 50 mg PO DAILY [facility] Last Admin: 01/05/18 09:19 Dose: 50 mg Spironolactone (Aldactone -) 25 mg PO DAILY [facility] Last Admin: 01/05/18 09:19 Dose: 25 mg - Objective Vital Signs: Vital Signs Temperature 98.5 F 01/05/18 10:00 Pulse Rate 89 01/05/18 10:00 Respiratory Rate 18 01/05/18 10:00 Blood Pressure 109/67 01/05/18 10:00 O2 Sat by Pulse Oximetry (%) 98 01/05/18 09:00 Constitutional: Yes: No Distress, Calm Neck: Yes: Supple Cardiovascular: Yes: Regular Rate and Rhythm, Murmur (2/6 SM) Respiratory: Yes: Regular, Diminished Gastrointestinal: Yes: Normal Bowel Sounds, Soft Edema: No Labs: CBC, BMP 01/05/18 06:30 01/05/18 06:30 INR, PTT INR 1.75 (0.82-1.09) H 01/04/18 05:05 Problem List - Problems (1) Subendocardial ischemia Code(s): I24.8 - OTHER FORMS OF ACUTE ISCHEMIC HEART DISEASE (2) Anemia Code(s): D64.9 - ANEMIA, UNSPECIFIED Qualifiers: Anemia type: unspecified type Qualified Code(s): D64.9 - Anemia, unspecified (3) Thrombocytopenia Code(s): D69.6 - THROMBOCYTOPENIA, UNSPECIFIED (4) CHF (congestive heart failure) Code(s): I50.9 - HEART FAILURE, UNSPECIFIED Qualifiers: Heart failure type: systolic Heart failure chronicity: acute Qualified Code(s): I50.21 - Acute systolic (congestive) heart failure (5) Aortic stenosis, severe Code(s): I35.0 - NONRHEUMATIC AORTIC (VALVE) STENOSIS Assessment/Plan 01/02/18 Echo: Moderate dilated LV with severely decreased LV fxn, normal RV size and fxn, mod pulm HTN, mod-severe aortic stenosis DIANA 0.66 cm^2, MG 34 mmHg 1. Acute on chronic systolic failure improving 2. Moderate to severe aortic valve stenosis 2. Subendocardial ischemia 3. Anemia, thrombocytopenia 4. RLE cellulitis improving P:1. Decrease diuresis with monitor diuretic response, renal fxn, electrolytes 2. Trops have peaked 3. Toprol XL 50 qd, losartan 25 qd and aldactone 25 qd with uptitration as hemodynamics tolerate 4. R&LHc for evaluation of cardiomyopathy, severity of aortic stenosis ( transvalvular aortic valve gradient) tomorrow at [facility] 5. Complete abx course per ID
--- NOTE | 2018-01-05 11:52 | PN ---
Progress Note, Physician History of Present Illness: leg looks much better pain better - Current Medication List Current Medications: Active Medications Furosemide (Lasix Injection -) 40 mg IVPUSH DAILY [facility] Last Admin: 01/05/18 09:19 Dose: 40 mg Heparin Sodium (Porcine) (Heparin -) 5,000 unit SQ BID [facility] Last Admin: 01/05/18 09:19 Dose: Not Given Ampicillin Sodium/Sulbactam (Sodium 3 gm/ Sodium Chloride) 100 mls @ 200 mls/ hr IVPB Q8H-IV [facility] Last Admin: 01/05/18 09:20 Dose: 200 mls/hr Losartan Potassium (Cozaar -) 25 mg PO DAILY [facility] Last Admin: 01/05/18 09:19 Dose: 25 mg Metoprolol Succinate (Toprol Xl -) 50 mg PO DAILY [facility] Last Admin: 01/05/18 09:19 Dose: 50 mg Spironolactone (Aldactone -) 25 mg PO DAILY [facility] Last Admin: 01/05/18 09:19 Dose: 25 mg - Objective Vital Signs: Vital Signs Temperature 98.5 F 01/05/18 10:00 Pulse Rate 89 01/05/18 10:00 Respiratory Rate 18 01/05/18 10:00 Blood Pressure 109/67 01/05/18 10:00 O2 Sat by Pulse Oximetry (%) 98 01/05/18 09:00 Constitutional: Yes: No Distress, Calm Neck: Yes: Supple, Trachea Midline Cardiovascular: Yes: S1, S2, Other Respiratory: Yes: Regular, CTA Bilaterally Gastrointestinal: Yes: Normal Bowel Sounds, Soft Musculoskeletal: Yes: WNL Extremities: Yes: Other Neurological: Yes: Alert, Oriented Psychiatric: Yes: Alert, Oriented Labs: CBC, BMP 01/05/18 06:30 01/05/18 06:30 INR, PTT INR 1.75 (0.82-1.09) H 01/04/18 05:05 Assessment/Plan Problem List - Problems (1) cellulitis of the rt ext (2) Anemia Code(s): D64.9 - ANEMIA, UNSPECIFIED Qualifiers: Anemia type: unspecified type Qualified Code(s): D64.9 - Anemia, unspecified (3) Thrombocytopenia Code(s): D69.6 - THROMBOCYTOPENIA, UNSPECIFIED (4) CHF (congestive heart failure) Code(s): I50.9 - HEART FAILURE, UNSPECIFIED Qualifiers: Heart failure type: unspecified Heart failure chronicity: acute Qualified Code(s): I50.9 - Heart failure, unspecified plan switch to oral augmentin patinet for cardiac cath rest as per cardio and primary
--- NOTE | 2018-01-05 18:56 | DS ---
Physical Examination Vital Signs: Vital Signs Temperature 98.5 F 01/05/18 10:00 Pulse Rate 89 01/05/18 10:00 Respiratory Rate 18 01/05/18 10:00 Blood Pressure 109/67 01/05/18 10:00 O2 Sat by Pulse Oximetry (%) 98 01/05/18 09:00 Labs: CBC, BMP 01/05/18 06:30 01/05/18 06:30 Discharge Summary Reason For Visit: CHF,ELEVATED TROPONIN LEVEL Condition: Guarded - Instructions Referrals: William Hedrick [Primary Care Provider] - Disposition: TRANSFER ACUTE CARE/OTHER HOSP - Home Medications Comprehensive Discharge Medication List: Ambulatory Orders Metoprolol Succinate 25 mg PO DAILY 01/01/18 transfered for cath
== END 2018-01-05 11:58 | disposition short-term general hospital (02) | DRG 292 ==
LOC: JER 12:54 → JERBED 15:52 → J4W 17:40 → JERBED 01-02 20:01 → J4W 01-02 20:02
PROVIDERS: ADMIT Internal Medicine; ATTEND Internal Medicine
DX: I11.0 Hypertensive heart disease with heart failure (principal); I24.8 Other forms of acute ischemic heart disease; L03.115 Cellulitis of right lower limb; E78.5 Hyperlipidemia, unspecified; I50.21 Acute systolic (congestive) heart failure; D69.6 Thrombocytopenia, unspecified; D64.9 Anemia, unspecified; I35.0 Nonrheumatic aortic (valve) stenosis
CPT/HCPCS: 36415; 71046-TC-FY; 80048; 80053; 82550; 82553; 83880; 84443; 84484; 85025; 85027; 85610; 93005; 93010; 93306-TC; 99283-25; J1644

== ENCOUNTER 2019-08-29 10:21 | Inpatient (IN) | payer MEDICARE, OTHER ==
--- NOTE | 2019-08-29 11:48 | PDOC ---
History of Present Illness - General History Source: Patient Exam Limitations: Clinical Condition - History of Present Illness Initial Comments: 08/29/19 11:52 Patient with past medical history of hypertension brought in by family with complaint of 2-day history of pain to bilateral lower posterior thigh, groin area and posterior knee. Patient's daughter also complain patient has been having visual hallucination for the past 2 days. Daughter reports patient attempted to lift a refrigerator yesterday and has been complaining of water running when there is no one around him and pointing unchanged on the anterior. Daughter denies patient being aggressive. Patient denies suicidal or homicidal ideation. Patient denies shortness of breath, chest pain, dizziness, nausea or vomiting. Daughter reports patient has been having excessive urination with urinary accidents sometimes for few days now. Denies any psychiatric history of depression, bipolar or any disorders Is this a multiple visit Asthma Patient?: No Timing/Duration: other (2 days) <Sancho Izaguirre - Last Filed: 08/29/19 16:11> <Petty Flood - Last Filed: 08/30/19 14:51> - General Chief Complaint: Pain, Acute Stated Complaint: Psychiatric/Pain on Rt.LE Time Seen by Provider: 08/29/19 11:17 Past History - Past Medical History COPD: No HTN: Yes Hypercholesterolemia: Yes - Immunization History Immunization Up to Date: No - Psycho Social/Smoking Cessation Hx Smoking History: Never smoked Have you smoked in the past 12 months: No Information on smoking cessation initiated: No Hx Alcohol Use: No Drug/Substance Use Hx: No <Sancho Izaguirre - Last Filed: 08/29/19 16:11> <Petty Flood - Last Filed: 08/30/19 14:51> - Past Medical History Allergies/Adverse Reactions: Allergies Allergy/AdvReac Type Severity Reaction Status Date / Time No Known Allergies Allergy Verified 01/01/18 13:22 Home Medications: Ambulatory Orders RX: Metoprolol Succinate 25 mg PO DAILY 01/01/18 Atorvastatin Ca [Lipitor] 20 mg PO DAILY 08/29/19 RX: Aspirin 81 mg PO DAILY 08/29/19 RX: Losartan Potassium 25 mg PO DAILY 08/29/19 RX: Spironolactone 25 mg PO DAILY 08/29/19 Review of Systems - Review of Systems Able to Perform ROS?: Yes Is the patient limited Bengali proficient: No Constitutional: No: Chills, Fever, Malaise HEENTM: No: Symptoms Reported, See HPI, Eye Pain, Blurred Vision, Tearing, Recent change in vision, Double Vision, Cataracts, Ear Pain, Ocular Prothesis, Ear Discharge, Nose Pain, Nose Congestion, Tinnitus, Nose Bleeding, Hearing Loss , Throat Pain, Throat Swelling, Mouth Pain, Dental Problems, Difficulty Swallowing, Mouth Swelling, Other Respiratory: No: Symptoms reported, See HPI, Cough, Orthopnea, Shortness of Breath, SOB with Exertion, SOB at Rest, Stridor, Wheezing, Productive cough, Hemoptysis, Other Cardiac (ROS): No: Symptoms Reported, See HPI, Chest Pain, Edema, Irregular Heart Rate, Lightheadedness, Palpitations, Syncope, Chest Tightness, Other ABD/GI: No: Symptoms Reported, Nausea, Vomiting, Abdominal cramping : Yes: Symptoms Reported, Frequency, Incontinence, Pain (b/l groin pain). No : Dysuria, Discharge, Testicular Mass, Testicular Swelling, Testicular Pain Musculoskeletal: Yes: Symptoms Reported, Muscle Pain (b/l posterior thigh and popliteal fossa) Integumentary: No: Symptoms Reported Neurological: Yes: Tremors (hand tremors). No: Headache, Dizziness Psychiatric: Yes: Other (visual hallucination). No: Anxiety Endocrine: No: Symptoms Reported All Other Systems: Reviewed and Negative <Sancho Izaguirre - Last Filed: 08/29/19 16:11> *Physical Exam - Vital Signs Last Vital Signs Temp Pulse Resp BP Pulse Ox 98.4 F 102 H 16 163/97 96 08/29/19 10:28 08/29/19 10:28 08/29/19 10:28 08/29/19 10:28 08/29/19 10:28 - Physical Exam Comments: 08/29/19 11:59 GENERAL: Well developed, well nourished. Awake and alert. No acute distress. HEENT: Normocephalic, atraumatic. PERRLA, EOMI. No conjunctival pallor. Sclera are non- icteric. Moist mucous membranes. Oropharynx is clear. NECK: Supple. Full ROM. No JVD. Carotid pulses 2+ and symmetric, without bruits. No thyromegaly. No lymphadenopathy. CARDIOVASCULAR: Regular rate and rhythm. No murmurs, rubs, or gallops. Distal pulses are 2+ and symmetric. PULMONARY: No evidence of respiratory distress. Lungs clear to auscultation bilaterally. No wheezing, rales or rhonchi. ABDOMINAL: Soft. Non-tender. Non-distended. No rebound or guarding. No organomegaly. Normoactive bowel sounds. MUSCULOSKELETAL Normal range of motion at all joints. Mild tenderness of bilateral groin area with increased pain to left groin area. Mild tenderness to popliteal fossa of bilateral knee with increased pain to right popliteal fossa. No bony deformities or tenderness. No CVA tenderness. EXTREMITIES: No cyanosis. No clubbing. No edema. No calf tenderness. SKIN: Warm and dry. Normal capillary refill. No rashes. NEUROLOGICAL: Alert, awake, appropriate. Cranial nerves 2-12 intact. No deficits to light touch in face, upper extremities and lower extremities. No motor deficits in the in face, upper extremities and lower extremities. Mild essential tremors in bilateral hands. Normal speech. Gait is normal without ataxia. PSYCHIATRIC: Cooperative. Good eye contact. Appropriate mood and affect. General Appearance: Yes: Nourished, Appropriately Dressed. No: Apparent Distress <Sancho Izaguirre - Last Filed: 08/29/19 16:11> - Vital Signs Last Vital Signs Temp Pulse Resp BP Pulse Ox 99.1 F 123 H 20 168/107 H 96 08/30/19 09:41 08/30/19 09:41 08/30/19 09:41 08/30/19 09:41 08/29/19 20:50 <Petty Flood - Last Filed: 08/30/19 14:51> ED Treatment Course - LABORATORY CBC & Chemistry Diagram: 08/29/19 11:58 08/29/19 11:58 - RADIOLOGY Radiology Studies Ordered: Category Date Time Status DUPLEX VASCUL US-2LEGS [US] Stat Ultrasound 08/29/19 11:35 Ordered <Sancho Izaguirre - Last Filed: 08/29/19 16:11> - LABORATORY CBC & Chemistry Diagram: 08/30/19 06:15 08/30/19 06:15 - ADDITIONAL ORDERS Additional order review: 08/29/19 12:05 Urine Culture - Final Urine - Urine Clean Catch NO GROWTH OBTAINED 08/29/19 11:58 RBC 4.43 MCV 95.6 MCHC 34.6 RDW 14.0 D MPV 9.3 Neutrophils % 64.1 Lymphocytes % 17.7 D Monocytes % 16.7 H Eosinophils % 0.3 Basophils % 1.2 - RADIOLOGY Radiology Studies Ordered: Category Date Time Status CHEST X-RAY PORTABLE* [RAD] Stat Radiology 08/29/19 15:09 Completed - Medications Given in the ED: ED Medications Discontinued Medications Generic Name Dose Route Start Last Admin Trade Name Freq PRN Reason Stop Dose Admin Folic Acid 1 mg/ Thiamine HCl 1,000 mls @ 125 mls/hr 08/29/19 15:14 08/29/19 17:10 100 mg/ Multivitamins/Minerals IVPB 08/29/19 23:13 125 mls/hr 10 ml/ Sodium Chloride ONCE ONE Administration Potassium Chloride 10 meq in 100 mls @ 100 mls/hr 08/30/19 09:30 08/30/19 14: 07 Potassium Chloride 10 Meq Premix Ivpb - IVPB 08/30/19 12:29 100 mls/hr Q60M ZION Administration Lactulose 20 gm 08/29/19 16:55 08/29/19 17:55 Cephulac (Oral Use) PO 08/29/19 16:56 20 gm ONCE ONE Administration Lorazepam 1 mg 08/30/19 01:33 08/30/19 02:55 Ativan Injection - IVPUSH 08/30/19 01:34 1 mg ONCE ONE Administration Lorazepam 1 mg 08/30/19 03:51 08/30/19 04:10 Ativan Injection - IVPUSH 08/30/19 03:52 1 mg ONCE ONE Administration Lorazepam 2 mg 08/30/19 08:56 08/30/19 09:43 Ativan Injection - IVPUSH 08/30/19 08:57 2 mg ONCE ONE Administration Magnesium Sulfate 2 gm 08/30/19 09:26 08/30/19 12:21 Magnesium Sulfate IVPB 08/30/19 09:27 2 gm ONCE ONE Administration Potassium Chloride 40 meq 08/30/19 09:26 08/30/19 09:56 K-Dur - PO 08/30/19 09:27 40 meq ONCE ONE Administration Potassium Phos/Sodium Phos 1 packet 08/30/19 10:00 08/30/19 12:25 Phos-Nak Packet - PO Not Given BID ZION <Petty Flood - Last Filed: 08/30/19 14:51> Medical Decision Making - Medical Decision Making 08/29/19 11:54 Patient with past medical history of hypertension brought in by family with complaint of 2-day history of pain to bilateral lower posterior thigh, groin area and posterior knee. Patient's daughter also complain patient has been having visual hallucination for the past 2 days. Daughter reports patient attempted to lift a refrigerator yesterday and has been complaining of water running when there is no water around him and pointing at things that are not there. Daughter denies patient being aggressive. Patient denies suicidal or homicidal ideation. Patient denies shortness of breath, chest pain, dizziness, nausea or vomiting. Daughter reports patient has been having excessive urination with urinary accidents sometimes for few days now. Denies any psychiatric history of depression, bipolar or any disorders Exam significant for mild tenderness to bilateral popliteal fossa and groin area with increased pain to left groin area. No testicular tenderness or swelling. Patient with essential tremors on the hand worsening down. Normal neuro exam. Symptoms likely muscle strain with causing leg and groin pains with UTI versus delirium from cystitis. CBC, CMP, TSH, acetaminophen and salicylic level ordered. Duplex ultrasound of bilateral lower extremity ordered to rule out DVT. UA and urine culture lab ordered. Will head to head CT to rule out any intracranial occupying mass. Treat based on lab and imaging results 08/29/19 13:59 CBC unremarkable. Chemistry lab shows AST of 147 which is elevated. Bilirubin of 3.1. Patient symptoms could be attributed to liver failure causing encaphalopathy and tremors could be from asterixis. Will order ammonia level to evaluate for elevated ammonia, alcohol level and HIV test ordered. abdominal ultrasound to evaluate liver. Head CT with no acute findings. TSH level normal. U tox negative 08/29/19 16:11 microblog sent for admission for altered mental status. ammonium level still pending <Sancho Izaguirre - Last Filed: 08/29/19 16:11> - Medical Decision Making 08/29/19 16:00 Pt seen by the Advanced Practice Provider under my direct supervision Ancillary studies reviewed I agree with plan as outlined by the Advanced Practice Provider Briefly, pt presents to ED with b/l LE pain, and new visual hallucinations for 2 days US negative for DVT Labs suggestive of liver failure, including thrombocytopenia, elevated INR, bili 3.1, mild AST elevation. Exam also with asterixis. Possibly 2/2 etoh abuse , although pt denies drinking more than 2 or 3 drinks per week. Ammonia level added. Pt currently cooperative, although intermittently hallucinating. Possible DTs? Daughter, however, denies that her father excessively drinks. CTH negative for acute pathology. He is rectally afebrile, with no headache, stiff neck, rash to suggest meningitis or HSV encephalitis. Will hold off on LP for now given low likelihood infectious process causing encephalopathy. Plan for admission for further observation and w/u of possible liver failure and hallucinations. <Petty Flood - Last Filed: 08/30/19 14:51> Discharge - Discharge Information Problems reviewed: Yes - Admission Yes <Sancho Izaguirre - Last Filed: 08/29/19 16:11> <Petty Flood - Last Filed: 08/30/19 14:51> - Discharge Information Clinical Impression/Diagnosis: Bilateral groin pain Altered mental status Qualifiers: Altered mental status type: delirium Qualified Code(s): R41.0 - Disorientation , unspecified Condition: Stable
[2019-08-29 12:09] LABS: BASO % 1.2 % (0-2.0); EOS % 0.3 % (0-4.5); HEMATOCRIT 42.3 % (35.4-49); HEMOGLOBIN 14.6 GM/dL (11.7-16.9); LYMPH % 17.7 % (8-40); MCH 33.1 pg (25.7-33.7); MCHC 34.6 g/dl (32.0-35.9); MEAN CELL VOLUME 95.6 fl (80-96); MEAN PLT VOLUME 9.3 fl (7.5-11.1); MONO % 16.7 % (3.8-10.2); NEUT % 64.1 % (42.8-82.8); PLATELET COUNT 67 K/MM3 (134-434); RBC 4.43 M/mm3 (4.00-5.60); WHITE BLOOD COUNT 5.1 K/mm3 (4.0-10.0)
[2019-08-29 12:30] LABS: EPI CELLS 0.2 /HPF (0-5/HPF); HYALINE CASTS 1 /lpf (0-8); PH,URINE 5.5 (5.0-8.0); URINE APPEARANCE CLEAR; URINE BACTERIA 1.7 /hpf (NEGATIVE); URINE BILIRUBIN 1+ (NEGATIVE); URINE COLOR DK YELLOW; URINE GLUCOSE (UA) NEGATIVE (NEGATIVE); URINE KETONE TRACE (NEGATIVE); URINE LEUK ESTERASE TRACE (NEGATIVE); URINE NITRITE NEGATIVE (NEGATIVE); URINE PROTEIN 2+ (NEGATIVE); URINE RBC 2 /hpf (0-4); URINE WBC 1 /hpf (0-5)
[2019-08-29 12:39] LABS: ALBUMIN 3.4 g/dl (3.4-5.0); BILIRUBIN,TOTAL 3.1 mg/dL (0.2-1); BLOOD UREA NITROGEN 24.2 mg/dL (7-18); CALCIUM 9.1 mg/dL (8.5-10.1); POTASSIUM 3.5 mmol/L (3.5-5.1); TOT PROT 9.3 g/dl (6.4-8.2)
[2019-08-29 12:56] LABS: COCAINE, UR NEGATIVE ng/ml (CUTOFF=300); METHADONE, UR NEGATIVE ng/ml (CUTOFF=300); OPIATES, URI NEGATIVE ng/ml (CUTOFF=300); PHENCYCLIDINE,URINE NEGATIVE ng/ml (CUTOFF=25); URINE AMPHETAMINES NEGATIVE ng/ml (CUTOFF=500); URINE BARBITURATES NEGATIVE ng/ml (CUTOFF=200); URINE BENZODIAZEPINES NEGATIVE ng/ml (CUTOFF=200)
[2019-08-29 13:43] LABS: N-TERMINAL BNP 332.6 pg/ml (5-125)
[2019-08-29] MEDS ORDERED: FOLIC ACID INJECTION - 1 MG, THIAMINE HCL 100 MG, MULTIVIT INJECTION ADULT 10 ML in SOD... IVPB ONE (15:14)
[2019-08-29 15:18] LABS: N-TERMINAL BNP 336.8 pg/ml (5-125)
--- NOTE | 2019-08-29 16:40 | HP ---
CHIEF COMPLAINT: AMS PCP: Dr. Guy Colvin HISTORY OF PRESENT ILLNESS: Patient is a 54 y/o male with a history of HTN, HLD, and HFrER with pacemaker who presents for 2 days of hallucinations. Patient has never had a history of this and has no changes in his life. Patient is non compliant with his medications and does not know the names. he only drinks 2-3 beers a week. Per his daughter he has been seeing things that are not there and has been grabbing at things. patient has also been weaker and unable to walk as well. Patient typically has pain in his lower extremities due to his arthritis. patient has been with his for over 30 years. patient denies any recent sick contacts. State she follows up with a manager field sales but does not know the name. Patient feels hot and has not had a bowel movement in two days. Denies headache, nausea , vomiting, chest pain, dizziness, blurry vision, or tingling in extremities. ER course was notable for: (1) (2) (3) Recent Travel: denies PAST MEDICAL HISTORY: HTN, HLD, and HFrER with pacemaker PAST SURGICAL HISTORY: pacemaker placement, "open heart surgery" at [place] 1 year ago Social History: Smoking: never Alcohol: 2-3 beers a week Drugs: denies Family hx: mom : DM , heart disease, no dementia in the family Allergies No Known Allergies Allergy (Verified 01/01/18 13:22) HOME MEDICATIONS: Home Medications Medication Instructions Recorded Metoprolol Succinate 25 mg PO DAILY 01/01/18 REVIEW OF SYSTEMS CONSTITUTIONAL: Absent: fever, chills, diaphoresis, generalized weakness, malaise, loss of appetite, weight change HEENT: Absent: rhinorrhea, nasal congestion, throat pain, throat swelling, difficulty swallowing, mouth swelling, ear pain, eye pain, visual changes CARDIOVASCULAR: Absent: chest pain, syncope, palpitations, irregular heart rate, lightheadedness , peripheral edema RESPIRATORY: Absent: cough, shortness of breath, dyspnea with exertion, orthopnea, wheezing, stridor, hemoptysis GASTROINTESTINAL: Absent: abdominal pain, abdominal distension, nausea, vomiting, diarrhea, constipation, melena, hematochezia GENITOURINARY: Absent: dysuria, frequency, urgency, hesitancy, hematuria, flank pain, genital pain MUSCULOSKELETAL: Absent: myalgia, arthralgia, joint swelling, back pain, neck pain SKIN: Absent: rash, itching, pallor HEMATOLOGIC/IMMUNOLOGIC: Absent: easy bleeding, easy bruising, lymphadenopathy, frequent infections ENDOCRINE: Absent: unexplained weight gain, unexplained weight loss, heat intolerance, cold intolerance NEUROLOGIC: mental status changes, Absent: headache, focal weakness or paresthesias, dizziness, unsteady gait, seizure, bladder or bowel incontinence PSYCHIATRIC: Absent: anxiety, depression, suicidal or homicidal ideation, hallucinations. PHYSICAL EXAMINATION Vital Signs - 24 hr 08/29/19 08/29/19 08/29/19 10:28 15:52 16:09 Temperature 98.4 F 100.0 F H Pulse Rate 102 H Pulse Rate [ 88 Right Radial] Respiratory 16 17 Rate Blood Pressure 163/97 Blood Pressure 115/86 [Right Arm] O2 Sat by Pulse 96 98 Oximetry (%) GENERAL: Awake, alert, oriented x2, diaphoretic, obese HEAD: Normal with no signs of trauma. EYES: Pupils equal, round and reactive to light, scleral icterus, no nystagmus, no diploplia EARS, NOSE, THROAT: Moist mucous membranes. icterus under tounge NECK: no JVD LUNGS: Breath sounds equal, clear to auscultation bilaterally. HEART: Regular rate and rhythm, normal S1 and S2 without murmur, rub or gallop. ABDOMEN: Soft, nontender, not distended, normoactive bowel sounds, no guarding, no rebound, no masses. No hepatomegaly or splenomegaly. MUSCULOSKELETAL: Normal range of motion at all joints. No bony deformities or tenderness. No CVA tenderness. LOWER EXTREMITIES: 2+ pulses, warm, well-perfused. No calf tenderness. No peripheral edema. NEUROLOGICAL: Cranial nerves II-XII intact. Normal speech. unable to determine gait due to weakness and unsteadiness, finger to nose undeterminable SKIN: Warm, dry, normal turgor, no rashes or lesions noted, normal capillary refill. CBC, BMP 08/29/19 11:58 08/29/19 11:58 ASSESSMENT/PLAN: Patient is a 54 y/o male with a history of HTN, HLD, and HFrER with pacemaker who presents for 2 days of hallucinations. #AMS - likely 2/2 to hepatic encephalopahty with icterus, - likely with alcohol use, patient denies - f/u fractionated bili, hepatitis panel, f/u TSH, f/u PT/INR - f/u CT of abd/pelvis - f/u neuro - f/u GI - head CT: no acute pathology - ammonia level increased at 37, give one dose of lacutlose - f/u VB12, f/u folate #tropinemia - f/u 2/2 trop - monitor patient on tele - continuous cardiac monitoring - f/u repeat echo #thrombocytopenia - hold medical AC - hold ASA in setting - f/u PT/INR #HLD - continue atorvastatin #HTN -continue metoprolol and losartan #HF - continue spironolactone - per patient has a ppm, ? ICD - f/u with Cardio DVT ppx - SCD's FEN - sodium controlled diet Dispo: monitor on tele Visit type - Emergency Visit Emergency Visit: Yes ED Registration Date: 08/29/19 Care time: The patient presented to the Emergency Department on the above date and was hospitalized for further evaluation of their emergent condition. - New Patient This patient is new to me today: Yes Date on this admission: 08/30/19 - Critical Care Critical Care patient: No ATTENDING PHYSICIAN STATEMENT I saw and evaluated the patient. I reviewed the resident's note and discussed the case with the resident. I agree with the resident's findings and plan as documented. SUBJECTIVE: OBJECTIVE: ASSESSMENT AND PLAN:
[2019-08-29] MEDS ORDERED: LACTULOSE 20 GM/30 ML UDC (FOR ORAL USE ONLY) PO ONE (16:55)
[2019-08-29] MEDS ORDERED: LACTULOSE 20 GM/30 ML UDC (FOR ORAL USE ONLY) ONE (17:55)
--- NOTE | 2019-08-29 17:59 | PN ---
Teaching Attending Note Name of Resident: Kathy Ken ATTENDING PHYSICIAN STATEMENT I saw and evaluated the patient. I reviewed the resident's note and discussed the case with the resident. I agree with the resident's findings and plan as documented with exceptions below. SUBJECTIVE: 54 yom with PMHx of cardiomyopathy, ?Cardiac surgery/ICD, Moderate to Severe Aortic stenosis, HTN, HLD, ETOH use brought in by daughter for visual hallucinations and unsteady gait for the last 2-3 days. Daughter reports patient has long standing h/o ETOH use, drinks' More than he should', atleast 2- 3 times a week, but patient lives alone and not sure how much he might be drinking. Per her,he has not been taking his medications regularly and feels stopped drinking 'cold turkey' 3 days ago. Patient currently denies any chest pain, palpitations, dizziness, dyspnea, cough , nausea, vomiting, abdominal pain or urinary symptoms. Per discussion with pharmacy, patient has not filled his medications since 2018. CXR with sternal sutures and ?ICD, but patient and family unable to provide the details. OBJECTIVE: Vital Signs Period Temp Pulse Resp BP Sys/Hernandez Pulse Ox Last 24 Hr 98.4 F-100.0 F 88-102 16-17 115-163/86-97 96-98 Intake & Output 08/26/19 08/27/19 08/28/19 08/29/19 23:59 23:59 23:59 23:59 Weight 440 lb 14.792 oz GENERAL: Awake, alert, oriented, no acute distress,facial flushing HEAD: Normal with no signs of trauma. EYES: Pupils equal, round and reactive to light, extraocular movements intact, sclera anicteric, conjunctiva clear. No lid lag. EARS, NOSE, THROAT: Ears normal, nares patent, oropharynx clear without exudates.dry mucous membranes. NECK: Normal range of motion, supple , no JVD LUNGS: Breath sounds equal, clear to auscultation bilaterally. No wheezes, and no crackles. No accessory muscle use. HEART: Regular rate and rhythm, normal S1 and S2 ABDOMEN: Soft, obese, NT throughout, pos bowel sounds MUSCULOSKELETAL: Normal range of motion at all joints. No bony deformities or tenderness. No CVA tenderness. UPPER EXTREMITIES: 2+ pulses, warm, well-perfused. No cyanosis. No clubbing. No peripheral edema. Pos upper extermity tremors LOWER EXTREMITIES: 2+ pulses, warm, well-perfused. No calf tenderness. No peripheral edema. NEUROLOGICAL: AAOx3, Cranial nerves II-XII intact. Normal speech. facial symmetry, EOMI, PERRL, power 5/5, gait not observed, PSYCHIATRIC: Cooperative. reports visual hallucinations to daughter, but vague currently SKIN: Warm, dry, decreased turgor, no rashes or lesions noted, normal capillary refill. Home Medications Medication Instructions Recorded Metoprolol Succinate 25 mg PO DAILY 01/01/18 Aspirin 81 mg PO DAILY 08/29/19 Atorvastatin Ca [Lipitor] 20 mg PO DAILY 08/29/19 Losartan Potassium 25 mg PO DAILY 08/29/19 Spironolactone 25 mg PO DAILY 08/29/19 Active Medications Aspirin (Asa -) 81 mg PO DAILY [facility] Atorvastatin Calcium (Lipitor -) 20 mg PO HS [facility] Folic Acid 1 mg/ Thiamine HCl 100 mg/ Multivitamins/Minerals 10 ml/ Sodium Chloride 1,000 mls @ 125 mls/hr IVPB ONCE ONE Stop: 08/29/19 23:13 Last Admin: 08/29/19 17:10 Dose: 125 mls/hr Losartan Potassium (Cozaar -) 25 mg PO DAILY [facility] Metoprolol Succinate (Toprol Xl -) 25 mg PO DAILY [facility] Spironolactone (Aldactone -) 25 mg PO DAILY [facility] Laboratory Results - last 24 hr 08/29/19 08/29/19 08/29/19 11:58 11:58 11:58 WBC 5.1 RBC 4.43 Hgb 14.6 Hct 42.3 D MCV 95.6 MCH 33.1 D MCHC 34.6 RDW 14.0 D Plt Count 67 L D MPV 9.3 Absolute Neuts (auto) 3.3 Neutrophils % 64.1 Lymphocytes % 17.7 D Monocytes % 16.7 H Eosinophils % 0.3 Basophils % 1.2 Nucleated RBC % 0 Sodium 130 L Potassium 3.5 Chloride 99 Carbon Dioxide 21 Anion Gap 9 BUN 24.2 H Creatinine 1.0 Est GFR (CKD-EPI)AfAm 99.15 Est GFR (CKD-EPI)NonAf 85.55 Random Glucose 109 H Lactic Acid Calcium 9.1 Total Bilirubin 3.1 H AST 147 H ALT 40 Alkaline Phosphatase 98 Ammonia Creatine Kinase 1298 H Creatine Kinase Index 0.8 CK-MB (CK-2) 10.7 H Troponin I 0.06 H 0.07 H B-Natriuretic Peptide 336.8 H 332.6 H Total Protein 9.3 H Albumin 3.4 TSH 1.42 D Urine Color Urine Appearance Urine pH Ur Specific [place] Urine Protein Urine Glucose (UA) Urine Ketones Urine Blood Urine Nitrite Urine Bilirubin Urine Urobilinogen Ur Leukocyte Esterase Urine WBC (Auto) Urine RBC (Auto) Urine Casts (Auto) U Epithel Cells (Auto) Urine Bacteria (Auto) Salicylates Opiates Screen Methadone Screen Acetaminophen Barbiturate Screen Phencyclidine Screen Ur Amphetamines Screen MDMA (Ecstasy) Screen Benzodiazepines Screen Cocaine Screen U Marijuana (THC) Screen Alcohol, Quantitative HIV 1&2 Antibody Screen HIV P24 Antigen 08/29/19 08/29/19 08/29/19 12:05 12:05 12:16 WBC RBC Hgb Hct MCV MCH MCHC RDW Plt Count MPV Absolute Neuts (auto) Neutrophils % Lymphocytes % Monocytes % Eosinophils % Basophils % Nucleated RBC % Sodium Potassium Chloride Carbon Dioxide Anion Gap BUN Creatinine Est GFR (CKD-EPI)AfAm Est GFR (CKD-EPI)NonAf Random Glucose Lactic Acid Calcium Total Bilirubin AST ALT Alkaline Phosphatase Ammonia Creatine Kinase Creatine Kinase Index CK-MB (CK-2) Troponin I B-Natriuretic Peptide Total Protein Albumin TSH Urine Color Dk yellow Urine Appearance Clear Urine pH 5.5 Ur Specific [place] 1.018 Urine Protein 2+ H Urine Glucose (UA) Negative Urine Ketones Trace H Urine Blood 1+ H Urine Nitrite Negative Urine Bilirubin 1+ H Urine Urobilinogen 1.0 Ur Leukocyte Esterase Trace Urine WBC (Auto) 1 Urine RBC (Auto) 2 Urine Casts (Auto) 1 U Epithel Cells (Auto) 0.2 Urine Bacteria (Auto) 1.7 Salicylates < 1.7 L Opiates Screen Negative Methadone Screen Negative Acetaminophen Barbiturate Screen Negative Phencyclidine Screen Negative Ur Amphetamines Screen Negative MDMA (Ecstasy) Screen Negative Benzodiazepines Screen Negative Cocaine Screen Negative U Marijuana (THC) Screen Negative Alcohol, Quantitative HIV 1&2 Antibody Screen HIV P24 Antigen 08/29/19 08/29/19 08/29/19 14:20 14:20 15:06 WBC RBC Hgb Hct MCV MCH MCHC RDW Plt Count MPV Absolute Neuts (auto) Neutrophils % Lymphocytes % Monocytes % Eosinophils % Basophils % Nucleated RBC % Sodium Potassium Chloride Carbon Dioxide Anion Gap BUN Creatinine Est GFR (CKD-EPI)AfAm Est GFR (CKD-EPI)NonAf Random Glucose Lactic Acid Calcium Total Bilirubin AST ALT Alkaline Phosphatase Ammonia 37.00 H Creatine Kinase Creatine Kinase Index CK-MB (CK-2) Troponin I B-Natriuretic Peptide Total Protein Albumin TSH Urine Color Urine Appearance Urine pH Ur Specific [place] Urine Protein Urine Glucose (UA) Urine Ketones Urine Blood Urine Nitrite Urine Bilirubin Urine Urobilinogen Ur Leukocyte Esterase Urine WBC (Auto) Urine RBC (Auto) Urine Casts (Auto) U Epithel Cells (Auto) Urine Bacteria (Auto) Salicylates Opiates Screen Methadone Screen Acetaminophen <2.0 Barbiturate Screen Phencyclidine Screen Ur Amphetamines Screen MDMA (Ecstasy) Screen Benzodiazepines Screen Cocaine Screen U Marijuana (THC) Screen Alcohol, Quantitative < 3.0 HIV 1&2 Antibody Screen HIV P24 Antigen 08/29/19 08/29/19 15:06 16:40 WBC RBC Hgb Hct MCV MCH MCHC RDW Plt Count MPV Absolute Neuts (auto) Neutrophils % Lymphocytes % Monocytes % Eosinophils % Basophils % Nucleated RBC % Sodium Potassium Chloride Carbon Dioxide Anion Gap BUN Creatinine Est GFR (CKD-EPI)AfAm Est GFR (CKD-EPI)NonAf Random Glucose Lactic Acid 1.4 Calcium Total Bilirubin AST ALT Alkaline Phosphatase Ammonia Creatine Kinase Creatine Kinase Index CK-MB (CK-2) Troponin I B-Natriuretic Peptide Total Protein Albumin TSH Urine Color Urine Appearance Urine pH Ur Specific [place] Urine Protein Urine Glucose (UA) Urine Ketones Urine Blood Urine Nitrite Urine Bilirubin Urine Urobilinogen Ur Leukocyte Esterase Urine WBC (Auto) Urine RBC (Auto) Urine Casts (Auto) U Epithel Cells (Auto) Urine Bacteria (Auto) Salicylates Opiates Screen Methadone Screen Acetaminophen Barbiturate Screen Phencyclidine Screen Ur Amphetamines Screen MDMA (Ecstasy) Screen Benzodiazepines Screen Cocaine Screen U Marijuana (THC) Screen Alcohol, Quantitative HIV 1&2 Antibody Screen Negative HIV P24 [address] brain results reviewed CXR image and results reviewed Abdominal US results noted ASSESSMENT AND PLAN: 54 yom with PMHx of cardiomyopathy, ?Cardiac surgery/ICD, Moderate to Severe Aortic stenosis, HTN, HLD, ETOH use admitted with hallucinations, unsteady gait -Visual hallucinations, suspicious for ETOH withdrawal, r/o hepatic encephalopathy/wernicke's encephlopathy, underlying neurological/psych process -ETOH use/withdrawal -Abnormal LFTs/Mixed hyperbilirubinemia, suspect from above -Elevated troponin, ?demand mediated from above, r/o ACS -Acute on chronic thrombocytopenia, ?From alcohol related bone marrow suppression -Cardiomyopathy, ?s/p cardiac surgery/?ICD -Moderate to severe Aortic stenosis -HTN -HLD Plan: Ativan detox protocol, Detox consult. Folate/thiamine, banana bag x1, avoid additional volume. Monitor volume status closely. Lactulose. Trend LFTs, Check INR. Check hepatitis panel. GI input Neurology input. Check folate, B12. Telemetry, cycle trop. ASA with close monitoring of platelets. patient not compliant with his meds. Retrieve more info from outpatient PCP/ Cardiology patient/daughter unable to provide currently. Repeat 2D echo. Cardiology input. Continue toprol/spironolactone/losartan. Hold statin till LFts stabilize DVTPPX SCD PT eval Dispo pendign clinical improvement. Discussed with patient and daughter at bedside in detail, all questions answered. Total admit time 65 min.
[2019-08-29] MEDS ORDERED: ATORVASTATIN CA 20 MG TABLET (FP) PO SCH (22:00)
[2019-08-29] MEDS: LORazepam 1 MG TABLET PO PRN (23:49)
[2019-08-30] MEDS ORDERED: LORazepam 2 MG/ML SDV VIAL IVPUSH ONE ×4 (01:33→22:04)
[2019-08-30] MEDS: LORazepam 1 MG TABLET PO PRN ×2 (02:39→08:00)
[2019-08-30 03:19] VITALS: BMI 30.6
[2019-08-30 03:48] LABS: INR 1.29 (0.83-1.09); PROTHROMBIN TIME (PATIENT) 15.3 SEC (9.7-13.0)
[2019-08-30] MEDS ORDERED: LACTULOSE 20 GM/30 ML UDC (FOR ORAL USE ONLY) PO PRN (07:51)
[2019-08-30 08:00] LABS: EOS % 0.3 % (0-4.5); HEMATOCRIT 37.9 % (35.4-49); HEMOGLOBIN 13.1 GM/dL (11.7-16.9); LYMPH % 15.7 % (8-40); MCH 33.5 pg (25.7-33.7); MCHC 34.6 g/dl (32.0-35.9); MEAN CELL VOLUME 96.9 fl (80-96); MEAN PLT VOLUME 8.9 fl (7.5-11.1); MONO % 16.7 % (3.8-10.2); NEUT % 66.3 % (42.8-82.8); PLATELET COUNT 58 K/MM3 (134-434); RBC 3.92 M/mm3 (4.00-5.60)
[2019-08-30 08:20] LABS: INR 1.3 (0.83-1.09); PROTHROMBIN TIME (PATIENT) 15.4 SEC (9.7-13.0)
[2019-08-30 08:49] LABS: BILIRUBIN,TOTAL 2.7 mg/dL (0.2-1); BLOOD UREA NITROGEN 13.4 mg/dL (7-18); CALCIUM 8.4 mg/dL (8.5-10.1); CREATININE 0.8 mg/dL (0.55-1.3); MAGNESIUM 1.5 mg/dL (1.8-2.4); PHOSPHOROUS 2.2 mg/dL (2.5-4.9); POTASSIUM 3.4 mmol/L (3.5-5.1); TOT PROT 8.4 g/dl (6.4-8.2)
[2019-08-30] MEDS ORDERED: POTASSIUM CHLORIDE TABS 20 MEQ TABLET.ER (FP) PO ONE (09:26)
[2019-08-30] MEDS ORDERED: MAGNESIUM SULF 50% (8.12 MEQ/2 ML-1 GM VIAL) IVPB ONE (09:26)
[2019-08-30] MEDS: SPIRONOLACTONE 25 MG TABLET (FP) PO SCH (09:49)
[2019-08-30] MEDS: metoPROLOL SUCCINATE 25 MG TAB.SR.24H (FP) PO SCH (09:49)
[2019-08-30] MEDS: LOSARTAN POTASSIUM 25 MG TABLET PO SCH (09:49)
--- NOTE | 2019-08-30 09:55 | CON.NEURO ---
Consult - History of Present Illness History of Present Illness: 54 y/o male with a history of HTN, HLD, and HFrER with pacemaker who presents for 2 days of hallucinations. Patient has never had a history of this and has no changes in his life. Patient is non compliant with his medications and does not know the names. he only drinks 2-3 beers a week. Per his daughter he has been seeing things that are not there and has been grabbing at things. patient has also been weaker and unable to walk as well. Patient typically has pain in his lower extremities due to his arthritis. patient has been with his for over 30 years. patient denies any recent sick contacts. State she follows up with a rehabilitation aide/scheduler but does not know the name. Patient feels hot and has not had a bowel movement in two days. Denies headache, nausea, vomiting, chest pain , dizziness, blurry vision, or tingling in extremities. lbs elevted ALT, GGT, slightly elevated Ammonia /Bili tox (-), b12 NL - Past Medical History Cardio/Vascular: Yes: HTN, Hyperlipdemia - Alcohol/Substance Use Hx Alcohol Use: Yes - Smoking History Smoking history: Never smoked Have you smoked in the past 12 months: No Home Medications - Allergies Allergies/Adverse Reactions: Allergies Allergy/AdvReac Type Severity Reaction Status Date / Time No Known Allergies Allergy Verified 01/01/18 13:22 - Home Medications Home Medications: Ambulatory Orders Metoprolol Succinate 25 mg PO DAILY 01/01/18 Aspirin 81 mg PO DAILY 08/29/19 Atorvastatin Ca [Lipitor] 20 mg PO DAILY 08/29/19 Losartan Potassium 25 mg PO DAILY 08/29/19 Spironolactone 25 mg PO DAILY 08/29/19 Physical Exam-Neuro Vital Signs: Vital Signs Temperature 99.1 F 08/30/19 09:41 Pulse Rate 123 H 08/30/19 09:41 Respiratory Rate 20 08/30/19 09:41 Blood Pressure 168/107 H 08/30/19 09:41 O2 Sat by Pulse Oximetry (%) 96 08/29/19 20:50 Labs: CBC, BMP 08/30/19 06:15 08/30/19 06:15 INR, PTT INR 1.30 (0.83-1.09) H 08/30/19 06:15 - Neuro Exam Level Of Consciousness: Yes: Stuporous (pt confused, unable to give HX or follow requests , + delirium, + tremors BL, restrained, no focal weakness distally ) Imaging - Results Cat Scan: Report Reviewed, Image Reviewed Assessment/Plan 54 y/o male with a history of HTN, HLD, and HFrER with pacemaker who presents for 2 days of hallucinations. Patient has never had a history of this and has no changes in his life. Patient is non compliant with his medications and does not know the names. he only drinks 2-3 beers a week. Per his daughter he has been seeing things that are not there and has been grabbing at things. patient has also been weaker and unable to walk as well. Patient typically has pain in his lower extremities due to his arthritis. patient has been with his for over 30 years. patient denies any recent sick contacts. State she follows up with a rehabilitation aide/scheduler but does not know the name. Patient feels hot and has not had a bowel movement in two days. Denies headache, nausea, vomiting, chest pain , dizziness, blurry vision, or tingling in extremities. lbs elevted ALT, GGT, slightly elevated Ammonia /Bili tox (-), b12 Nl HD CT (-0 CT abd/pelvis : suggestive of cirrhosis AP : Deliirium tremons, with likely hepatic encephalopathy metabolic WHITLEY in progress, GI FU librium taper/B1/B12/folate supplementation needs 1:1 watch for autonomic dysregulation DR SPAULDING
[2019-08-30] MEDS ORDERED: metoPROLOL SUCCINATE 25 MG TAB.SR.24H (FP) PO SCH (10:00)
[2019-08-30] MEDS ORDERED: ASPIRIN 81 MG CHEWABLE TABLETS PO SCH (10:00)
[2019-08-30] MEDS ORDERED: NAPH,MB-DB/K PH,MBDB POWDER PACKET PO SCH (10:00)
--- NOTE | 2019-08-30 10:01 | CON.CARD ---
Consult Consult Specialty:: Cardiology Referred by:: Hospitalist Medicine Reason for Consultation:: s/p PPM, s/p SAVR - History of Present Illness Chief Complaint: Hallucinations, ETOH History of Present Illness: 54 year old male withhistory of HTN, HLD, bicuspid AV with critical s/p bioprosthetic SAVR with magna 25, short IABP support and dual chamber pacemaker implantation for CHB 01/09/2018, ETOH use brought in by daughter for visual hallucinations and unsteady gait for the last 2-3 days. Daughter reports patient has long standing h/o ETOH use, at least 2-3 times a week, but patient lives alone and not sure how much he might be drinking. Per her, he has not been taking his medications regularly and feels stopped drinking 'cold turkey' 3 days ago. Patient is currently confused, agitated, restrained, receiving IV Ativan. Per discussion with pharmacy, patient has not filled his medications since 2018. Has not been compliant with office visits last visit 02/01/2018, uncooperative with echo. - History Source History Provided By: Medical Record Limitations to Obtaining History: Poor Historian - Past Medical History Cardio/Vascular: Yes: HTN, Hyperlipdemia - Alcohol/Substance Use Hx Alcohol Use: Yes - Smoking History Smoking history: Never smoked Have you smoked in the past 12 months: No Home Medications - Allergies Allergies/Adverse Reactions: Allergies Allergy/AdvReac Type Severity Reaction Status Date / Time No Known Allergies Allergy Verified 01/01/18 13:22 - Home Medications Home Medications: Ambulatory Orders Metoprolol Succinate 25 mg PO DAILY 01/01/18 Aspirin 81 mg PO DAILY 08/29/19 Atorvastatin Ca [Lipitor] 20 mg PO DAILY 08/29/19 Losartan Potassium 25 mg PO DAILY 08/29/19 Spironolactone 25 mg PO DAILY 08/29/19 Review of Systems - Review of Systems Neurological: reports: Confusion, Unsteady Gait Vital Signs: Vital Signs Temperature 99.1 F 08/30/19 09:41 Pulse Rate 123 H 08/30/19 09:41 Respiratory Rate 20 08/30/19 09:41 Blood Pressure 168/107 H 08/30/19 09:41 O2 Sat by Pulse Oximetry (%) 96 08/29/19 20:50 Constitutional: Yes: No Distress, Other (Agitated) Neck: Yes: Supple Respiratory: Yes: Regular, Diminished Gastrointestinal: Yes: Normal Bowel Sounds, Soft Cardiovascular: Yes: Regular Rate and Rhythm JVD: No Carotid Bruit: No Heart Sounds: Yes: S1, S2 Edema: No Neurological: Yes: Confusion - Other Data Labs, Other Data: CBC, BMP 08/30/19 06:15 08/30/19 06:15 INR, PTT INR 1.30 (0.83-1.09) H 08/30/19 06:15 Troponin, BNP 08/29/19 08/29/19 08/29/19 11:58 11:58 15:06 Troponin I 0.06 H 0.07 H 0.06 H B-Natriuretic Peptide 336.8 H 332.6 H 08/30/19 03:00 Troponin I 0.04 B-Natriuretic Peptide Troponin, BNP 08/29/19 08/29/19 08/29/19 11:58 11:58 15:06 Troponin I 0.06 H 0.07 H 0.06 H B-Natriuretic Peptide 336.8 H 332.6 H 08/30/19 03:00 Troponin I 0.04 B-Natriuretic Peptide NS @ 92 RBBB Ejection Fraction %: LVEF > or = 40 % Imaging - Results Cat Scan: Report Reviewed (CT scan of the abdomen and pelvis revealed an enlarged liver and changes consistent with portal hypertension) Problem List - Problems (1) S/P aortic valve replacement with bioprosthetic valve Code(s): Z95.3 - PRESENCE OF XENOGENIC HEART VALVE (2) Pacemaker Code(s): Z95.0 - PRESENCE OF CARDIAC PACEMAKER (3) Complete heart block, post-surgical Code(s): I97.89 - OTH POSTPROC COMP AND DISORDERS OF THE CIRC SYS, NEC; I44.2 - ATRIOVENTRICULAR BLOCK, COMPLETE (4) Altered mental status Code(s): R41.82 - ALTERED MENTAL STATUS, UNSPECIFIED Qualifiers: Altered mental status type: delirium Qualified Code(s): R41.0 - Disorientation, unspecified (5) Aortic stenosis, severe Code(s): I35.0 - NONRHEUMATIC AORTIC (VALVE) STENOSIS (6) CHF (congestive heart failure) Code(s): I50.9 - HEART FAILURE, UNSPECIFIED Qualifiers: Heart failure type: diastolic Heart failure chronicity: chronic Qualified Code(s): I50.32 - Chronic diastolic (congestive) heart failure (7) Thrombocytopenia Code(s): D69.6 - THROMBOCYTOPENIA, UNSPECIFIED (8) Alcohol withdrawal delirium Code(s): F10.231 - ALCOHOL DEPENDENCE WITH WITHDRAWAL DELIRIUM (9) Portal hypertension Code(s): K76.6 - PORTAL HYPERTENSION Assessment/Plan CT scan of the abdomen and pelvis revealed an enlarged liver and changes consistent with portal hypertension 01/02/18 Echo: Moderate dilated LV with severely decreased LV fxn, normal RV size and fxn, mod pulm HTN, mod-severe aortic stenosis DIANA 0.66 cm^2, MG 34 mmHg , pacemaker seen 01/05/2018 R&LHc: Severe global HK LVEF 25% with severe DIANA 0.8 cm^2, MG 47 mmHg 03/29/2018 Echo: Normal LV size and fxn with impaired LV relaxation, normal RV size and fxn, biatrial sizes, normal functioning aortic bioprosthesis, mild ME, TR RVSP 31 mmHg, small-moderate pericardial effusion 1. Visual hallucinations, agitation, fait instability suspicious for ETOH withdrawal, r/o hepatic encephalopathy/wernicke's encephlopathy/korsakoff psychosis 2. Critical due to bicuspid aortic valve s/p bioprosthetic aortic valve replacement Magna 25 with brief IABP support 3. Resolved systolic dysfunction with h/o failure and subendocardial ischemia 2/ 2 valvular cardiomyopathy 4. CHB s/p dual chamber pacemaker 5. Hypertensive cardiomyopathy 6. Pericardial effusion 7. Hyperlipidemia 8.Thrombocytopenia 2/2 alcohol related bone marrow suppression 9. Abnormal LFTs/Mixed hyperbilirubinemia 2/2 ETOH hepatitis 10. Microalbuminuria 11. Portal hypertension P: 1. Trend trops, f/u repeat echo to assess ventricular and valve fxn, pericardial effusion 2. Resume Toprol XL 25 qd, losartan 25 qd, aldactone 25 qd, ASA 81 qd with uptitration as hemodynamics tolerate 3. Detox, IV ativan as needed, trend LFTs, hold statin until LFT normalize, lactulose 4. Thank you for consultative opportunity
[2019-08-30] MEDS: LORazepam 1 MG TABLET PO SCH ×2 (12:25→16:32)
--- NOTE | 2019-08-30 12:34 | CON.GI ---
Consult Consult Specialty:: GI Referred by:: Hospitalist Service Reason for Consultation:: Hepatic Encephalopathy - History of Present Illness Chief Complaint: Patient confused, agitated. does not give history History of Present Illness: 54M evaluated in ER for evaluation of aletred mental status. Per the H& P he was having hallucinations x 2 days. It also states that hehe only drinks 2-3 beers a week. Asked to evaluate for hepatic encephalopathy. patient currently restrained. security wa there helping to restrain him as he was extremely agitated. Unable to obtain history. CT scan of the abdomen and pelvis revealed an enlarged liver and changes consistent with portal hypertension. His MCV is elevated and his platelet count is low. He has a coagulopathy. Unclear when his last drink was. CPK elevated on admission - History Source History Provided By: Medical Record - Past Medical History Cardio/Vascular: Yes: Aortic Stenosis, HTN, Hyperlipdemia Hepatobiliary: Yes: Cirrhosis - Past Surgical History Past Surgical History: Yes: Permanent Pacemaker (AICD) - Alcohol/Substance Use Hx Alcohol Use: Yes - Smoking History Smoking history: Never smoked Have you smoked in the past 12 months: No - Social History Usual Living Arrangement: With Child ADL: Independent Home Medications - Allergies Allergies/Adverse Reactions: Allergies Allergy/AdvReac Type Severity Reaction Status Date / Time No Known Allergies Allergy Verified 01/01/18 13:22 - Home Medications Home Medications: Ambulatory Orders Metoprolol Succinate 25 mg PO DAILY 01/01/18 Aspirin 81 mg PO DAILY 08/29/19 Atorvastatin Ca [Lipitor] 20 mg PO DAILY 08/29/19 Losartan Potassium 25 mg PO DAILY 08/29/19 Spironolactone 25 mg PO DAILY 08/29/19 Family Medical History Family History: Unable to Obtain Review of Systems - Review of Systems Gastrointestinal: denies: Abdominal Pain Physical Exam-GI Vital Signs: Vital Signs Temperature 99.1 F 08/30/19 09:41 Pulse Rate 123 H 08/30/19 09:41 Respiratory Rate 20 08/30/19 09:41 Blood Pressure 168/107 H 08/30/19 09:41 O2 Sat by Pulse Oximetry (%) 96 08/29/19 20:50 Constitutional: Yes: Anxious, Diaphoresis Eyes: No: Sclera Icterus Cardiovascular: Yes: Tachycardia Respiratory: Yes: Diminished (at bases but uncooperative) Gastrointestinal Inspection: Yes: Scars (sternotomy scar extending to upper abdomen). No: Distention ...Auscultate: Yes: Normoactive Bowel Sounds ...Percussion: No: Tympanitic Edema: No (No LE edema) Neurological: Yes: Alert, Confusion Labs: CBC, BMP 08/30/19 06:15 08/30/19 06:15 INR, PTT INR 1.30 (0.83-1.09) H 08/30/19 06:15 Hepatic Panel Total Bilirubin 2.7 mg/dL (0.2-1) H 08/30/19 06:15 Direct Bilirubin 1.1 mg/dL (0.0-0.2) H 08/29/19 15:06 AST 117 U/L (15-37) H 08/30/19 06:15 ALT 35 U/L (13-61) 08/30/19 06:15 Alkaline Phosphatase 84 U/L (45-117) 08/30/19 06:15 Albumin 3.0 g/dl (3.4-5.0) L 08/30/19 06:15 Problem List - Problems (1) Altered mental status Assessment/Plan: Suspect that alcohol withdrawal with delerium tremens is the main concern at this point. Patient extremely agitated and diaphoretic. Elevated CPK can go along with the DT's. Hepatic encephalopathy usually progresses to lethargy and coma Advise: Treatment of DT's / exclusion of alternate causes of agitation per primary team Psych eval Detox eval Lactulose 30mg daily Needs complete alcohol abstinence An acute hepatitis panel was checked but he likely has chronic liver disease from alcohol abuse. Can check hepatitis B surface antibody. If negative, should be offered hepatitis B vaccination. Given his complicating comorbidities, for further evaluation of his liver disease, he should be referred to a liver center as outpatient when his acute issues are resolved Continue to monitor CPK and treatment of Rhabdo per primary team Code(s): R41.82 - ALTERED MENTAL STATUS, UNSPECIFIED Qualifiers: Altered mental status type: delirium Qualified Code(s): R41.0 - Disorientation, unspecified
[2019-08-30] MEDS: LORazepam 2 MG/ML SDV VIAL IVPUSH PRN ×3 (12:48→20:15)
--- NOTE | 2019-08-30 12:50 | EKG ---
Test Reason : Blood Pressure : / mmHG Vent. Rate : 092 BPM Atrial Rate : 092 BPM P-R Int : 192 ms QRS Dur : 162 ms QT Int : 434 ms P-R-T Axes : 028 -15 009 degrees QTc Int : 536 ms NORMAL SINUS RHYTHM RIGHT BUNDLE BRANCH BLOCK ABNORMAL ECG WHEN COMPARED WITH ECG OF 02-JAN-2018 20:35, RIGHT BUNDLE BRANCH BLOCK IS NOW PRESENT Confirmed by DULCE GILL MD [id number]) on 08/30/2019 12:50:26 PM Referred By: Confirmed By:DULCE GILL MD
[2019-08-30] MEDS: KCL 10 MEQ IVPB 10 MEQ/100 ML INFUS.BAG IVPB SCH ×3 (14:07→16:19)
--- NOTE | 2019-08-30 14:26 | PN ---
Teaching Attending Note Name of Resident: Werner Phelan ATTENDING PHYSICIAN STATEMENT I saw and evaluated the patient. I reviewed the resident's note and discussed the case with the resident. I agree with the resident's findings and plan as documented with exceptions below. SUBJECTIVE: Patient seen and examined. confused, diaphoretic, hallucinating, denies any complaints. OBJECTIVE: Vital Signs Period Temp Pulse Resp BP Sys/Hernandez Pulse Ox Last 24 Hr 98.3 F-100.0 F 88-123 17-20 115-168/78-107 96-100 Intake & Output 08/27/19 08/28/19 08/29/19 08/30/19 23:59 23:59 23:59 23:59 Intake Total 170 15 Balance 170 15 Weight 189 lb 12.8 oz General: lying in bed, confused, diaphoretic, flushed, hallcunating, restless Neck: soft, supple Chest: no rales or wheezing Abdomen:soft, obese, NT Extremities: tremors Neuro: awake, confused, oriented to self only, restless, moves all extremities freely, speech normal, further exam limited Home Medications Medication Instructions Recorded Metoprolol Succinate 25 mg PO DAILY 01/01/18 Aspirin 81 mg PO DAILY 08/29/19 Atorvastatin Ca [Lipitor] 20 mg PO DAILY 08/29/19 Losartan Potassium 25 mg PO DAILY 08/29/19 Spironolactone 25 mg PO DAILY 08/29/19 Active Medications Lactulose (Cephulac (Oral Use)) 20 gm PO TID PRN PRN Reason: CONSTIPATION Lorazepam (Ativan -) 1 mg PO Q4H PRN PRN Reason: Symptoms of Withdrawal Stop: 08/31/19 23:59 Last Admin: 08/30/19 08:00 Dose: 1 mg Lorazepam (Ativan -) 1 mg PO 0500,1100,1700,2300 ZION Stop: 08/30/19 23:01 Last Admin: 08/30/19 12:25 Dose: 1 mg Lorazepam (Ativan -) 0.5 mg PO Q4H PRN PRN Reason: Symptoms of Withdrawal Stop: 09/01/19 23:59 Lorazepam (Ativan -) 0.5 mg PO Q6H ZION Stop: 08/31/19 23:01 Lorazepam (Ativan -) 0.5 mg PO ONCE ONE Stop: 09/01/19 05:01 Lorazepam (Ativan Injection -) 2 mg IVPUSH Q4H PRN PRN Reason: ANXIETY Last Admin: 08/30/19 12:48 Dose: 2 mg Losartan Potassium (Cozaar -) 25 mg PO DAILY [facility] Last Admin: 08/30/19 09:49 Dose: 25 mg Metoprolol Succinate (Toprol Xl -) 25 mg PO DAILY [facility] Last Admin: 08/30/19 09:49 Dose: 25 mg Potassium Phos/Sodium Phos (Phos-Nak Packet -) 1 packet PO BID [facility] Last Admin: 08/30/19 12:25 Dose: Not Given Spironolactone (Aldactone -) 25 mg PO DAILY [facility] Last Admin: 08/30/19 09:49 Dose: 25 mg Laboratory Results - last 24 hr 08/29/19 08/29/19 08/29/19 11:58 14:20 14:20 WBC RBC Hgb Hct MCV MCH MCHC RDW Plt Count MPV Absolute Neuts (auto) Neutrophils % Lymphocytes % Monocytes % Eosinophils % Basophils % Nucleated RBC % PT with INR INR Sodium Potassium Chloride Carbon Dioxide Anion Gap BUN Creatinine Est GFR (CKD-EPI)AfAm Est GFR (CKD-EPI)NonAf Random Glucose Lactic Acid Calcium Phosphorus Magnesium Total Bilirubin Direct Bilirubin GGT AST ALT Alkaline Phosphatase Ammonia Creatine Kinase 1298 H Creatine Kinase Index 0.8 CK-MB (CK-2) 10.7 H Troponin I 0.06 H B-Natriuretic Peptide 336.8 H Total Protein Albumin Vitamin B12 Serum Folate TSH 1.42 D Acetaminophen <2.0 Alcohol, Quantitative < 3.0 HIV 1&2 Antibody Screen HIV P24 Antigen 08/29/19 08/29/19 08/29/19 15:06 15:06 15:06 WBC RBC Hgb Hct MCV MCH MCHC RDW Plt Count MPV Absolute Neuts (auto) Neutrophils % Lymphocytes % Monocytes % Eosinophils % Basophils % Nucleated RBC % PT with INR INR Sodium Potassium Chloride Carbon Dioxide Anion Gap BUN Creatinine Est GFR (CKD-EPI)AfAm Est GFR (CKD-EPI)NonAf Random Glucose Lactic Acid Calcium Phosphorus Magnesium Total Bilirubin Direct Bilirubin GGT AST ALT Alkaline Phosphatase Ammonia 37.00 H Creatine Kinase Creatine Kinase Index CK-MB (CK-2) Troponin I 0.06 H B-Natriuretic Peptide Total Protein Albumin Vitamin B12 1444 H Serum Folate 18 H TSH Acetaminophen Alcohol, Quantitative HIV 1&2 Antibody Screen Negative HIV P24 Antigen Negative 08/29/19 08/29/19 08/30/19 15:06 16:40 03:00 WBC RBC Hgb Hct MCV MCH MCHC RDW Plt Count MPV Absolute Neuts (auto) Neutrophils % Lymphocytes % Monocytes % Eosinophils % Basophils % Nucleated RBC % PT with INR 15.30 H INR 1.29 H Sodium Potassium Chloride Carbon Dioxide Anion Gap BUN Creatinine Est GFR (CKD-EPI)AfAm Est GFR (CKD-EPI)NonAf Random Glucose Lactic Acid 1.4 Calcium Phosphorus Magnesium Total Bilirubin Direct Bilirubin 1.1 H GGT AST ALT Alkaline Phosphatase Ammonia Creatine Kinase Creatine Kinase Index CK-MB (CK-2) Troponin I B-Natriuretic Peptide Total Protein Albumin Vitamin B12 Serum Folate TSH Acetaminophen Alcohol, Quantitative HIV 1&2 Antibody Screen HIV P24 Antigen 08/30/19 08/30/19 08/30/19 03:00 06:15 06:15 WBC 5.0 RBC 3.92 L Hgb 13.1 Hct 37.9 MCV 96.9 H MCH 33.5 MCHC 34.6 RDW 14.0 Plt Count 58 L MPV 8.9 Absolute Neuts (auto) 3.3 Neutrophils % 66.3 Lymphocytes % 15.7 Monocytes % 16.7 H Eosinophils % 0.3 Basophils % 1.0 Nucleated RBC % 0 PT with INR INR Sodium 137 Potassium 3.4 L Chloride 105 Carbon Dioxide 22 Anion Gap 10 BUN 13.4 Creatinine 0.8 Est GFR (CKD-EPI)AfAm 118.20 Est GFR (CKD-EPI)NonAf 101.99 Random Glucose 101 Lactic Acid Calcium 8.4 L Phosphorus 2.2 L Magnesium 1.5 L Total Bilirubin 2.7 H Direct Bilirubin GGT 635 H AST 117 H ALT 35 Alkaline Phosphatase 84 Ammonia Creatine Kinase Creatine Kinase Index CK-MB (CK-2) Troponin I 0.04 B-Natriuretic Peptide Total Protein 8.4 H Albumin 3.0 L Vitamin B12 Serum Folate TSH 1.75 D Acetaminophen Alcohol, Quantitative HIV 1&2 Antibody Screen HIV P24 Antigen 08/30/19 06:15 WBC RBC Hgb Hct MCV MCH MCHC RDW Plt Count MPV Absolute Neuts (auto) Neutrophils % Lymphocytes % Monocytes % Eosinophils % Basophils % Nucleated RBC % PT with INR 15.40 H INR 1.30 H Sodium Potassium Chloride Carbon Dioxide Anion Gap BUN Creatinine Est GFR (CKD-EPI)AfAm Est GFR (CKD-EPI)NonAf Random Glucose Lactic Acid Calcium Phosphorus Magnesium Total Bilirubin Direct Bilirubin GGT AST ALT Alkaline Phosphatase Ammonia Creatine Kinase Creatine Kinase Index CK-MB (CK-2) Troponin I B-Natriuretic Peptide Total Protein Albumin Vitamin B12 Serum Folate TSH Acetaminophen Alcohol, Quantitative HIV 1&2 Antibody Screen HIV P24 Antigen Microbiology 08/29/19 12:05 Urine - Urine Clean Catch Urine Culture - Final NO GROWTH OBTAINED ASSESSMENT AND PLAN: 54 yom with PMhx of HTN, HLD, bicuspid AV with critical s/p bioprosthetic SAVR, short IABP support and dual chamber pacemaker implantation for CHB 2017, ETOH use admitted with hallucinations, unsteady gait, concerning for ETOH withdrawal. -Deliriuim Tremens, +/- hepatic encephalopathy/Korsakoff's psychosis/Wernicke's encephalopathy -Abnormal LFTs/Mixed hyperbilirubinemia, suspect from above -Elevated troponin, suspect demand mediated from above -Cirrhosis,likely alcoholic, with portal htn/splenomegaly/Thrombocytopenia, suspect varices -Acute on chronic thrombocytopenia, suspect From alcohol related bone marrow suppression over underlying cirrhosis/splenomegaly -bicuspid AV with critical s/p bioprosthetic SAVR, short IABP support and dual chamber pacemaker implantation for CHB 01/09/2018 -HTN -HLD Plan: Ativan detox protocol, IV Prn, 1:1 observation Detox consult. Folate/thiamine, gentle hydration with monitoring of volume status. GGT noted, LFTs trending down.GI input noted. PPI daily, will need outpatient hepatology follow up lactulose TID. Hep panel, if neg, Hep B vaccination. Neurology input noted. Folate/b12 levels noted. Trop flat. ASA with close monitoring of platelets. Cardiology input noted. Patient not compliant with his meds. Continue toprol/spironolactone/losartan. Hold statin till LFts stabilize Follow up repeat 2D echo. DVTPPX SCDs PT eval when improved. Dispo pending clinical improvement. May benefit from ETOH rehab once improved.
[2019-08-30] MEDS ORDERED: POTASSIUM PHOSPHATE 25 MM in DEXTROSE 5%-WATER - 500 ML IVPB ONE (14:29)
--- NOTE | 2019-08-30 18:13 | PN ---
Physical Exam: SUBJECTIVE: Patient seen and examined O/N: received Ativan 1mg x2 for agitation, getting out of bed w/ unstable gait, pulling off tele monitor Denies chest pain, hallucinations, [place], palpitations, SOB OBJECTIVE: Vital Signs Period Temp Pulse Resp BP Sys/Hernandez Pulse Ox Last 24 Hr 98.3 F-99.1 F 89-123 20-20 130-168/78-107 96-98 CIWA 16(sweating, agitated, visible tremors) GENERAL: The patient is awake, alert to name. Appears agitated HEAD: NC. Visible beads of sweat. EYES: mild scleral icterus, conjunctiva clear. ENT: Ears normal, nares patent, moist mucous membranes. NECK: Trachea midline, full range of motion, supple. LUNGS: Breath sounds equal, clear to auscultation bilaterally, no wheezes, no crackles, no accessory muscle use. HEART: rapid heart rapid, S1, S2 without murmur, rub or gallop. Palpable Left chest PPM. ABDOMEN: Soft, nontender, nondistended, no guarding, no rebound. EXTREMITIES: 2+ pulses, warm, well-perfused, no edema. NEUROLOGICAL: oriented to name. Confused about reason for admission SKIN: beads of sweat on forehead Laboratory Results - last 24 hr 08/29/19 08/29/19 08/29/19 15:06 15:06 15:06 WBC RBC Hgb Hct MCV MCH MCHC RDW Plt Count MPV Absolute Neuts (auto) Neutrophils % Lymphocytes % Monocytes % Eosinophils % Basophils % Nucleated RBC % PT with INR INR Sodium Potassium Chloride Carbon Dioxide Anion Gap BUN Creatinine Est GFR (CKD-EPI)AfAm Est GFR (CKD-EPI)NonAf Random Glucose Lactic Acid Calcium Phosphorus Magnesium Total Bilirubin Direct Bilirubin 1.1 H GGT AST ALT Alkaline Phosphatase Troponin I 0.06 H Total Protein Albumin Vitamin B12 1444 H Serum Folate 18 H TSH HIV 1&2 Antibody Screen Negative HIV P24 Antigen Negative 08/29/19 08/30/19 08/30/19 16:40 03:00 03:00 WBC RBC Hgb Hct MCV MCH MCHC RDW Plt Count MPV Absolute Neuts (auto) Neutrophils % Lymphocytes % Monocytes % Eosinophils % Basophils % Nucleated RBC % PT with INR 15.30 H INR 1.29 H Sodium Potassium Chloride Carbon Dioxide Anion Gap BUN Creatinine Est GFR (CKD-EPI)AfAm Est GFR (CKD-EPI)NonAf Random Glucose Lactic Acid 1.4 Calcium Phosphorus Magnesium Total Bilirubin Direct Bilirubin GGT AST ALT Alkaline Phosphatase Troponin I 0.04 Total Protein Albumin Vitamin B12 Serum Folate TSH HIV 1&2 Antibody Screen HIV P24 Antigen 08/30/19 08/30/19 08/30/19 06:15 06:15 06:15 WBC 5.0 RBC 3.92 L Hgb 13.1 Hct 37.9 MCV 96.9 H MCH 33.5 MCHC 34.6 RDW 14.0 Plt Count 58 L MPV 8.9 Absolute Neuts (auto) 3.3 Neutrophils % 66.3 Lymphocytes % 15.7 Monocytes % 16.7 H Eosinophils % 0.3 Basophils % 1.0 Nucleated RBC % 0 PT with INR 15.40 H INR 1.30 H Sodium 137 Potassium 3.4 L Chloride 105 Carbon Dioxide 22 Anion Gap 10 BUN 13.4 Creatinine 0.8 Est GFR (CKD-EPI)AfAm 118.20 Est GFR (CKD-EPI)NonAf 101.99 Random Glucose 101 Lactic Acid Calcium 8.4 L Phosphorus 2.2 L Magnesium 1.5 L Total Bilirubin 2.7 H Direct Bilirubin GGT 635 H AST 117 H ALT 35 Alkaline Phosphatase 84 Troponin I Total Protein 8.4 H Albumin 3.0 L Vitamin B12 Serum Folate TSH 1.75 D HIV 1&2 Antibody Screen HIV P24 Antigen Active Medications Generic Name Dose Route Start Last Admin Trade Name Freq PRN Reason Stop Dose Admin Potassium Phosphate 25 mm/ 508.3333 mls @ 62.5 mls/hr 08/30/19 14:29 Dextrose IVPB 08/30/19 22:36 ONCE ONE Lactulose 20 gm 08/30/19 07:51 Cephulac (Oral Use) PO TID PRN CONSTIPATION Lorazepam 1 mg 08/29/19 18:25 08/30/19 08:00 Ativan - PO 08/31/19 23:59 1 mg Q4H PRN Administration Symptoms of Withdrawal Lorazepam 1 mg 08/30/19 09:28 08/30/19 16:32 Ativan - PO 08/30/19 23:01 1 mg 0500,1100,1700,2300 ZION Administration Lorazepam 0.5 mg 08/31/19 00:00 Ativan - PO 09/01/19 23:59 Q4H PRN Symptoms of Withdrawal Lorazepam 0.5 mg 08/31/19 05:00 Ativan - PO 08/31/19 23:01 Q6H ZION Lorazepam 0.5 mg 09/01/19 05:00 Ativan - PO 09/01/19 05:01 ONCE ONE Lorazepam 2 mg 08/30/19 12:09 08/30/19 16:34 Ativan Injection - IVPUSH 2 mg Q4H PRN Administration ANXIETY Losartan Potassium 25 mg 08/30/19 10:00 08/30/19 09:49 Cozaar - PO 25 mg DAILY ZION Administration Metoprolol Succinate 25 mg 08/30/19 10:00 08/30/19 09:49 Toprol Xl - PO 25 mg DAILY [facility]ION Administration Spironolactone 25 mg 08/30/19 10:00 08/30/19 09:49 Aldactone - PO 25 mg DAILY ZION Administration ASSESSMENT/PLAN: Patient is a 54 y/o male with a history of HTN, HLD, and HFrER with pacemaker who presents for 2 days of CP and visual hallucinations. #AMS -- likely 2/2 to EtOH withdrawal > CIWA 16 > CT A/P(08/29/19): liver 17.2cm, cirrhosis, splenomegaly, possible esophageal varices > CT H(08/29/19): neg > B12 ~1444 > Folate ~18 - Ativan protocol - Neuro Consult --thinking likely hepatic encephalopathy --librium taper/B1/B12/folate supplementation - GI Consult --lactulose 30mg daily --hepatitis panel -- pending #Cirrhosis > Surinder B > Tbil 2.7, INR 1.3, Alb 3.0 > ammonia level ~ 37 - lactulose TID - spironlactone #tropinemia > troponin 0.06->0.07->0.06->0.04 - monitor patient on tele - continuous cardiac monitoring - f/u repeat echo -- pending #thrombocytopenia - holding DVT ppx and ASA - trend daily Plt #HLD - continue atorvastatin #HTN -continue metoprolol and losartan #Aortic Valve Replacement(Magna 25) #Complete Heart Block - continue spironolactone - per patient has a dual chamber pacemaker - Cardio Consult: --trend trops --fu rpt echo --cw Toprol XL 25 qd, losartan 25 qd, aldactone 25 qd, ASA 81 DVT ppx > venous duplex(08/30/19): neg - SCD's FEN - sodium controlled diet Dispo: monitor on tele Visit type - Emergency Visit Emergency Visit: No - New Patient This patient is new to me today: No - Critical Care Critical Care patient: No ATTENDING PHYSICIAN STATEMENT I saw and evaluated the patient. I reviewed the resident's note and discussed the case with the resident. I agree with the resident's findings and plan as documented. SUBJECTIVE: OBJECTIVE: ASSESSMENT AND PLAN:
[2019-08-30] MEDS: LACTULOSE 20 GM/30 ML UDC (FOR ORAL USE ONLY) PO SCH (23:08)
[2019-08-31] MEDS ORDERED: LORazepam 0.5 MG TABLET PO PRN
[2019-08-31] MEDS: LORazepam 1 MG TABLET PO SCH (00:16)
[2019-08-31] MEDS: LORazepam 2 MG/ML SDV VIAL IVPUSH PRN ×2 (00:23→22:29)
[2019-08-31] MEDS ORDERED: LORazepam 1 MG TABLET PO SCH (05:00)
[2019-08-31] MEDS: LACTULOSE 20 GM/30 ML UDC (FOR ORAL USE ONLY) PO SCH ×4 (06:02→22:23)
[2019-08-31] MEDS: LORazepam 0.5 MG TABLET PO SCH ×4 (06:02→22:29)
[2019-08-31 06:43] LABS: HEMATOCRIT 39.3 % (35.4-49); HEMOGLOBIN 13.4 GM/dL (11.7-16.9); MCH 33.5 pg (25.7-33.7); MCHC 34.1 g/dl (32.0-35.9); MEAN PLT VOLUME 8.9 fl (7.5-11.1); PLATELET COUNT 59 K/MM3 (134-434); RBC 4.01 M/mm3 (4.00-5.60); RDW 14.4 % (11.9-15.9); WHITE BLOOD COUNT 3.9 K/mm3 (4.0-10.0)
[2019-08-31 06:54] LABS: INR 1.36 (0.83-1.09); PROTHROMBIN TIME (PATIENT) 16.1 SEC (9.7-13.0)
[2019-08-31 06:55] LABS: ALBUMIN 2.9 g/dl (3.4-5.0); BLOOD UREA NITROGEN 8.9 mg/dL (7-18); CALCIUM 8.7 mg/dL (8.5-10.1); CREATININE 0.8 mg/dL (0.55-1.3); TOT PROT 8.3 g/dl (6.4-8.2)
--- NOTE | 2019-08-31 07:25 | PN ---
Progress Note (short form) - Note Progress Note: Chief Complaint: Event noted, notes reviewed, lethargic but easily arousable, in no distress History of Present Illness: Seen and examined on telemetry. Event noted, notes reviewed, lethargic but easily arousable, in no distress - Current Medication List Current Medications Lactulose (Cephulac (Oral Use)) 20 gm PO TID [facility] Last Admin: 08/31/19 06:02 Dose: 20 gm Lorazepam (Ativan -) 1 mg PO Q4H PRN PRN Reason: Symptoms of Withdrawal Stop: 08/31/19 23:59 Last Admin: 08/30/19 08:00 Dose: 1 mg Lorazepam (Ativan -) 0.5 mg PO Q4H PRN PRN Reason: Symptoms of Withdrawal Stop: 09/01/19 23:59 Lorazepam (Ativan -) 0.5 mg PO Q6H ZION Stop: 08/31/19 23:01 Last Admin: 08/31/19 06:02 Dose: 0.5 mg Lorazepam (Ativan -) 0.5 mg PO ONCE ONE Stop: 09/01/19 05:01 Lorazepam (Ativan Injection -) 2 mg IVPUSH Q2H PRN PRN Reason: ANXIETY Last Admin: 08/31/19 00:23 Dose: 2 mg Losartan Potassium (Cozaar -) 25 mg PO DAILY [facility] Last Admin: 08/30/19 09:49 Dose: 25 mg Metoprolol Succinate (Toprol Xl -) 25 mg PO DAILY [facility] Last Admin: 08/30/19 09:49 Dose: 25 mg Spironolactone (Aldactone -) 25 mg PO DAILY [facility] Last Admin: 08/30/19 09:49 Dose: 25 mg Review of Systems Unable to obtain - Objective Vital Signs: Last Vital Signs Temp Pulse Resp BP Pulse Ox 98.9 F 89 20 132/91 94 L 08/31/19 05:37 08/31/19 05:37 08/31/19 05:37 08/31/19 05:37 08/30/19 21:00 Intake & Output 08/28/19 08/29/19 08/30/19 08/31/19 23:59 23:59 23:59 23:59 Intake Total 170 535 Balance 170 535 Weight 189 lb 12.8 oz Constitutional: No Distress, Calm Neck: Supple Negative JVD No Bruit Respiratory: Diminished Breath Sounds at the Bases Cardiovascular: S1 S2 Regular Rate Rhythm Gastrointestinal: Soft Benign Normal Bowel Sounds Ext: Trace Edema Labs: CBC, BMP 08/31/19 05:13 08/31/19 05:13 Hepatic Panel Total Bilirubin 2.0 mg/dL (0.2-1) H 08/31/19 05:13 Direct Bilirubin 1.1 mg/dL (0.0-0.2) H 08/29/19 15:06 AST 94 U/L (15-37) H 08/31/19 05:13 ALT 34 U/L (13-61) 08/31/19 05:13 Alkaline Phosphatase 80 U/L (45-117) 08/31/19 05:13 Albumin 2.9 g/dl (3.4-5.0) L 08/31/19 05:13 INR, PTT INR 1.36 (0.83-1.09) H 08/31/19 05:13 ASSESSMENT: 1. Altered mental status, hepatic encephalopathy/wernicke's encephlopathy/ korsakoff psychosis, resolving 2. History of critical due to bicuspid aortic valve post SAVR/Bioprosthetic aortic valve 3. History of dilated non ischemic cardiomyopathy related to the above noted valvular pathology resolved with evidence of demand ischemic injury/ subendocardial ischemia 4. Complete heart block post dual chamber pacemaker 5. Hypertensive cardiovascular disease 6. Pericardial effusion 7. Hyperlipidemia 8. Thrombocytopenia/Neutropenia 9. Acute ETOH hepatitis with evidence of chronic liver disease 10. Portal hypertension related to above PLAN: 1. Continue Cozaar 2. Start Nadolol in substitution for Toprol XL/in view of the above noted portal hypertension 3. Continue Aldactone and titrate dosage 4. Avoid ASA for now pending improvement in the above noted thrombocytopenia 5. Repeat echocardiography study for evaluation of LV function, valvular function and pericardial effusion Maryse Gaitan M.D.
[2019-08-31] MEDS: LOSARTAN POTASSIUM 25 MG TABLET PO SCH (09:32)
[2019-08-31] MEDS: metoPROLOL SUCCINATE 25 MG TAB.SR.24H (FP) PO SCH (09:32)
[2019-08-31] MEDS: SPIRONOLACTONE 25 MG TABLET (FP) PO SCH ×3 (09:33→22:23)
[2019-08-31] MEDS ORDERED: HEPATITIS B VIR VAC (ENGERIX) 10 MCG/0.5 ML VIAL (PF) IM ONE (12:54)
--- NOTE | 2019-08-31 13:23 | PN ---
Progress Note, Physician History of Present Illness: Patient seen and examined at bedside Still having alcohol withdrawal symptoms but no longer hallucinating or delirious AAOx3 - Current Medication List Current Medications: Active Medications Lactulose (Cephulac (Oral Use)) 20 gm PO TID [facility] Last Admin: 08/31/19 06:02 Dose: 20 gm Lorazepam (Ativan -) 1 mg PO Q4H PRN PRN Reason: Symptoms of Withdrawal Stop: 08/31/19 23:59 Last Admin: 08/30/19 08:00 Dose: 1 mg Lorazepam (Ativan -) 0.5 mg PO Q4H PRN PRN Reason: Symptoms of Withdrawal Stop: 09/01/19 23:59 Lorazepam (Ativan -) 0.5 mg PO Q6H [facility]ION Stop: 08/31/19 23:01 Last Admin: 08/31/19 12:49 Dose: 0.5 mg Lorazepam (Ativan -) 0.5 mg PO ONCE ONE Stop: 09/01/19 05:01 Lorazepam (Ativan Injection -) 2 mg IVPUSH Q2H PRN PRN Reason: ANXIETY Last Admin: 08/31/19 00:23 Dose: 2 mg Losartan Potassium (Cozaar -) 25 mg PO DAILY [facility] Last Admin: 08/31/19 09:32 Dose: 25 mg Nadolol (Corgard -) 40 mg PO DAILY [facility] Spironolactone (Aldactone -) 25 mg PO BID [facility] - Objective Vital Signs: Vital Signs Temperature 98 F 08/31/19 10:00 Pulse Rate 78 08/31/19 10:00 Respiratory Rate 18 08/31/19 10:00 Blood Pressure 125/93 08/31/19 10:00 O2 Sat by Pulse Oximetry (%) 93 L 08/31/19 09:00 Constitutional: Yes: Well Nourished, Other (tremulous) Eyes: Yes: Sclera Icterus HENT: Yes: Atraumatic Neck: Yes: Supple Cardiovascular: Yes: Regular Rate and Rhythm Respiratory: Yes: CTA Bilaterally Gastrointestinal: Yes: Soft. No: Distention, Tenderness Edema: LLE: Trace, RLE: Trace Neurological: Yes: Alert, Oriented, Other (tremors) Labs: CBC, BMP 08/31/19 05:13 08/31/19 05:13 INR, PTT INR 1.36 (0.83-1.09) H 08/31/19 05:13 - ....Imaging Ultrasound: Report Reviewed (no DVT) Impression/Plan Impression/Plan: 54M with multiple medical problems including HTN HLD bicuspid aortic valve, critical aortic stenosis s/p bioprosthetic SAVR, short IABP support and dual chamber pacemaker implantation for CHB 01/09/2018, ETOH use admitted with hallucinations and unsteady gait consistent with alcohol withdrawal Patient no longer delirious but still having whole body tremors Deliriuim Tremens, +/- hepatic encephalopathy/Korsakoff's psychosis/Wernicke's encephalopathy Abnormal LFTs/Mixed hyperbilirubinemia, suspect from above Elevated troponin, suspect demand mediated from above Cirrhosis,likely alcoholic, with portal htn/splenomegaly/Thrombocytopenia, suspect varices Acute on chronic thrombocytopenia, suspect From alcohol related bone marrow suppression over underlying cirrhosis/splenomegaly bicuspid AV with critical s/p bioprosthetic SAVR, short IABP support and dual chamber pacemaker implantation for CHB 01/09/2018 HTN HLD rhabdomyolysis Plan: contiue CIWA protocol for alcohol withdrawal patient seems to be improving will stop 1:1 sitter Detox consult. Folate/thiamine GGT noted, LFTs trending down. GI consult noted and appreciated will get Hep B surface Ab-this was not part of hepatitis panel. if negative will give first dose of vaccine PPI for GI PPx SCDs for DVT PPx-US duplex negative for DVT will need outpatient hepatology follow up upon discharge continue lactulose TID. Neurology consult noted and appreciated Folate/b12 levels high agree with holding aspirin agree with stopping metoprolol and starting nadolol Continue spironolactone and losartan PT consult when able to participate Hold statin till LFts stabilize add on CPK to this mornings labs as it has not been checked since admission- improved continue to trend CPK Visit type - Emergency Visit Emergency Visit: Yes ED Registration Date: 08/29/19 Care time: The patient presented to the Emergency Department on the above date and was hospitalized for further evaluation of their emergent condition. - New Patient This patient is new to me today: Yes Date on this admission: 08/31/19 - Critical Care Critical Care patient: No
[2019-08-31] MEDS ORDERED: PT OWN MED DRAWER 7, Y5N ONE (18:20)
[2019-08-31] MEDS: LORazepam 1 MG TABLET PO PRN (20:33)
[2019-09-01] MEDS ORDERED: LORazepam 0.5 MG TABLET PO PRN
[2019-09-01] MEDS ORDERED: LORazepam 0.5 MG TABLET PO SCH (05:00)
[2019-09-01] MEDS ORDERED: LORazepam 0.5 MG TABLET PO ONE (05:00)
[2019-09-01] MEDS: LACTULOSE 20 GM/30 ML UDC (FOR ORAL USE ONLY) PO SCH ×3 (06:02→21:27)
[2019-09-01 07:11] LABS: ALBUMIN 2.8 g/dl (3.4-5.0); BILIRUBIN,DIRECT 1.1 mg/dL (0.0-0.2); BILIRUBIN,TOTAL 2.4 mg/dL (0.2-1); BLOOD UREA NITROGEN 12.6 mg/dL (7-18); CALCIUM 8.5 mg/dL (8.5-10.1); CREATININE 0.9 mg/dL (0.55-1.3); MAGNESIUM 1.7 mg/dL (1.8-2.4); POTASSIUM 3.8 mmol/L (3.5-5.1); TOT PROT 8.1 g/dl (6.4-8.2)
[2019-09-01 07:28] LABS: BASO % 0.8 % (0-2.0); EOS % 0.6 % (0-4.5); HEMATOCRIT 39.2 % (35.4-49); HEMOGLOBIN 13.4 GM/dL (11.7-16.9); LYMPH % 21.7 % (8-40); MCH 33.7 pg (25.7-33.7); MCHC 34.3 g/dl (32.0-35.9); MEAN CELL VOLUME 98.3 fl (80-96); MEAN PLT VOLUME 9.3 fl (7.5-11.1); MONO % 22.4 % (3.8-10.2); NEUT % 54.5 % (42.8-82.8); RBC 3.98 M/mm3 (4.00-5.60); RDW 14.5 % (11.9-15.9); WHITE BLOOD COUNT 5.3 K/mm3 (4.0-10.0)
[2019-09-01] MEDS ORDERED: PT OWN MED DRAWER 7, Y5N ONE (08:55)
[2019-09-01 08:57] LABS: INR 1.4 (0.83-1.09); PROTHROMBIN TIME (PATIENT) 16.6 SEC (9.7-13.0)
[2019-09-01] MEDS: LOSARTAN POTASSIUM 25 MG TABLET PO SCH (09:22)
[2019-09-01] MEDS: SPIRONOLACTONE 25 MG TABLET (FP) PO SCH ×2 (09:22→21:27)
[2019-09-01] MEDS: MAGNESIUM OXIDE 400 MG TABLET (FP) PO SCH ×2 (09:22→21:27)
[2019-09-01] MEDS: NADOLOL 40 MG TABLET (FP) PO SCH (09:22)
--- NOTE | 2019-09-01 10:43 | PN ---
Physical Exam: SUBJECTIVE: Patient seen and examined this AM. Tolerating PO. 1 BM overnight. Denies any fevers, chills, chest pain, SOB, nausea, vomiting diarrhea, constipation. OBJECTIVE: Vital Signs Period Temp Pulse Resp BP Sys/Hernandez Pulse Ox Last 24 Hr 99 F-99.8 F 83-100 18-20 105-142/62-88 97 GENERAL: A&Ox3, NAD HEAD: NCAT EYES: PERRL, EOMI, Scleral Icterus ENT: Moist mucous membranes. NECK: Supple LUNGS: CTAB, no wheezes, no crackles HEART: Regular rate and rhythm, S1, S2 without murmur ABDOMEN: Obese, Soft, nontender, nondistended, + bowel sounds, no guarding, no rebound EXTREMITIES: No edema NEUROLOGICAL: Cranial nerves II through XII grossly intact. Normal speech. Tremors with out stretched upper extremities. CIWA 10 SKIN: Warm, dry Laboratory Results - last 24 hr 08/31/19 09/01/19 09/01/19 05:13 05:30 05:30 WBC 5.3 RBC 3.98 L Hgb 13.4 Hct 39.2 MCV 98.3 H MCH 33.7 MCHC 34.3 RDW 14.5 Plt Count 77 L D MPV 9.3 Absolute Neuts (auto) 2.9 Neutrophils % 54.5 Lymphocytes % 21.7 D Monocytes % 22.4 H Eosinophils % 0.6 D Basophils % 0.8 Nucleated RBC % 0 PT with INR INR Sodium 137 135 L Potassium 4.0 3.8 Chloride 105 103 Carbon Dioxide 25 23 Anion Gap 8 9 BUN 8.9 12.6 Creatinine 0.8 0.9 Est GFR (CKD-EPI)AfAm 118.20 112.62 Est GFR (CKD-EPI)NonAf 101.99 97.17 Random Glucose 99 96 Calcium 8.7 8.5 Magnesium 1.7 L Total Bilirubin 2.0 H 2.4 H Direct Bilirubin 1.1 H AST 94 H 66 H ALT 34 27 Alkaline Phosphatase 80 75 Creatine Kinase 592 H 185 Creatine Kinase Index 0.7 0.7 CK-MB (CK-2) 4.3 H 1.3 Total Protein 8.3 H 8.1 Albumin 2.9 L 2.8 L 09/01/19 05:30 WBC RBC Hgb Hct MCV MCH MCHC RDW Plt Count MPV Absolute Neuts (auto) Neutrophils % Lymphocytes % Monocytes % Eosinophils % Basophils % Nucleated RBC % PT with INR 16.60 H INR 1.40 H Sodium Potassium Chloride Carbon Dioxide Anion Gap BUN Creatinine Est GFR (CKD-EPI)AfAm Est GFR (CKD-EPI)NonAf Random Glucose Calcium Magnesium Total Bilirubin Direct Bilirubin AST ALT Alkaline Phosphatase Creatine Kinase Creatine Kinase Index CK-MB (CK-2) Total Protein Albumin Microbiology 08/29/19 12:05 Urine - Urine Clean Catch Urine Culture - Final NO GROWTH OBTAINED Active Medications Lactulose (Cephulac (Oral Use)) 20 gm PO TID [facility] Last Admin: 09/01/19 06:02 Dose: 20 gm Lorazepam (Ativan -) 0.5 mg PO Q4H PRN PRN Reason: Symptoms of Withdrawal Stop: 09/01/19 23:59 Lorazepam (Ativan Injection -) 2 mg IVPUSH Q2H PRN PRN Reason: ANXIETY Last Admin: 08/31/19 22:29 Dose: 2 mg Losartan Potassium (Cozaar -) 25 mg PO DAILY [facility] Last Admin: 09/01/19 09:22 Dose: 25 mg Magnesium Oxide (Mag-Ox -) 400 mg PO BID [facility] Stop: 09/01/19 22:01 Last Admin: 09/01/19 09:22 Dose: 400 mg Nadolol (Corgard -) 40 mg PO DAILY [facility] Last Admin: 09/01/19 09:22 Dose: 40 mg Spironolactone (Aldactone -) 25 mg PO BID [facility] Last Admin: 09/01/19 09:22 Dose: 25 mg ASSESSMENT/PLAN: 54 y/o M with PMHx of HTN, HLD, bicuspid aortic valve, critical aortic stenosis s/p bioprosthetic SAVR, short IABP support and dual chamber pacemaker implantation for [facility] 01/09/2018, who presented with visual hallucinations, found to be in acute EtOH withdrawal and started on Ativan protocol. #Acute EtOH withdrawal -In the setting of Deliriuim Tremens with possible hepatic encephalopathy -CIWA 11 this AM, Improving -Continue Ativan protocol -Continue Thiamine/Folate/MVI supplementation -Neurology and GI Consulted, Appreciate rec's #Cirrhosis -Due to EtOH use disorder -Hyperbilirubinemia worsening -Continue Lactulose, Spironolactone, Nadolol -Hepatitis B Surface AB pending; If negative will give Hep B Vaccine -Will Refer to a liver center as outpatient upon discharge #Elevated Troponin I -Trops peaked and plateu'ed -Cardio consulted, appreciate rec's, -Echo pending -Tele #Thrombocytopenia -Hold Chemical AC, ASA -Trend Platelets #HLD -Atorvastatin held in the setting of transaminitis #HTN -Continue Nadolol and Losartan #FEN -No standing fluids -Replete Lytes PRN -Na controlled diet #PPx -DVT: SCD's -GI: PPI Dispo: monitor on tele Visit type - Emergency Visit Emergency Visit: Yes ED Registration Date: 08/29/19 Care time: The patient presented to the Emergency Department on the above date and was hospitalized for further evaluation of their emergent condition. - New Patient This patient is new to me today: Yes Date on this admission: 09/02/19 - Critical Care Critical Care patient: No ATTENDING PHYSICIAN STATEMENT I saw and evaluated the patient. I reviewed the resident's note and discussed the case with the resident. I agree with the resident's findings and plan as documented. SUBJECTIVE: OBJECTIVE: ASSESSMENT AND PLAN:
[2019-09-01 10:55] LABS: PLATELET ESTIMATE DECREASED
--- NOTE | 2019-09-01 12:06 | PN ---
Progress Note, Physician History of Present Illness: Sensorium improved, less tremulous, easily arousable. - Current Medication List Current Medications: Active Medications Lactulose (Cephulac (Oral Use)) 20 gm PO TID [facility] Last Admin: 09/01/19 06:02 Dose: 20 gm Lorazepam (Ativan -) 0.5 mg PO Q4H PRN PRN Reason: Symptoms of Withdrawal Stop: 09/01/19 23:59 Lorazepam (Ativan Injection -) 2 mg IVPUSH Q2H PRN PRN Reason: ANXIETY Last Admin: 08/31/19 22:29 Dose: 2 mg Losartan Potassium (Cozaar -) 25 mg PO DAILY [facility] Last Admin: 09/01/19 09:22 Dose: 25 mg Magnesium Oxide (Mag-Ox -) 400 mg PO BID [facility] Stop: 09/01/19 22:01 Last Admin: 09/01/19 09:22 Dose: 400 mg Nadolol (Corgard -) 40 mg PO DAILY [facility] Last Admin: 09/01/19 09:22 Dose: 40 mg Spironolactone (Aldactone -) 25 mg PO BID [facility] Last Admin: 09/01/19 09:22 Dose: 25 mg - Objective Vital Signs: Vital Signs Temperature 98.2 F 09/01/19 10:00 Pulse Rate 74 09/01/19 10:00 Respiratory Rate 20 09/01/19 10:00 Blood Pressure 140/80 09/01/19 10:00 O2 Sat by Pulse Oximetry (%) 97 09/01/19 09:00 Constitutional: Yes: No Distress, Calm Neck: Yes: Supple Cardiovascular: Yes: Regular Rate and Rhythm Respiratory: Yes: Regular, CTA Bilaterally Gastrointestinal: Yes: Normal Bowel Sounds, Soft Edema: No Labs: CBC, BMP 09/01/19 05:30 09/01/19 05:30 INR, PTT INR 1.40 (0.83-1.09) H 09/01/19 05:30 - ....Imaging EKG: Report Reviewed (Tele: NSR) Problem List - Problems (1) S/P aortic valve replacement with bioprosthetic valve Code(s): Z95.3 - PRESENCE OF XENOGENIC HEART VALVE (2) Pacemaker Code(s): Z95.0 - PRESENCE OF CARDIAC PACEMAKER (3) Complete heart block, post-surgical Code(s): I97.89 - OTH POSTPROC COMP AND DISORDERS OF THE CIRC SYS, NEC; I44.2 - ATRIOVENTRICULAR BLOCK, COMPLETE (4) Altered mental status Code(s): R41.82 - ALTERED MENTAL STATUS, UNSPECIFIED Qualifiers: Altered mental status type: delirium Qualified Code(s): R41.0 - Disorientation, unspecified (5) Aortic stenosis, severe Code(s): I35.0 - NONRHEUMATIC AORTIC (VALVE) STENOSIS (6) CHF (congestive heart failure) Code(s): I50.9 - HEART FAILURE, UNSPECIFIED Qualifiers: Heart failure type: diastolic Heart failure chronicity: chronic Qualified Code(s): I50.32 - Chronic diastolic (congestive) heart failure (7) Thrombocytopenia Code(s): D69.6 - THROMBOCYTOPENIA, UNSPECIFIED (8) Alcohol withdrawal delirium Code(s): F10.231 - ALCOHOL DEPENDENCE WITH WITHDRAWAL DELIRIUM (9) Portal hypertension Code(s): K76.6 - PORTAL HYPERTENSION Assessment/Plan CT scan of the abdomen and pelvis revealed an enlarged liver and changes consistent with portal hypertension 01/02/18 Echo: Moderate dilated LV with severely decreased LV fxn, normal RV size and fxn, mod pulm HTN, mod-severe aortic stenosis DIANA 0.66 cm^2, MG 34 mmHg , pacemaker seen 01/05/2018 R&LHc: Severe global HK LVEF 25% with severe DIANA 0.8 cm^2, MG 47 mmHg 03/29/2018 Echo: Normal LV size and fxn with impaired LV relaxation, normal RV size and fxn, biatrial sizes, normal functioning aortic bioprosthesis, mild MD, TR RVSP 31 mmHg, small-moderate pericardial effusion 1. Altered mental status, hepatic encephalopathy/wernicke's encephlopathy/ korsakoff psychosis, resolving 2. History of critical due to bicuspid aortic valve post SAVR/Bioprosthetic aortic valve 3. History of dilated non ischemic cardiomyopathy related to the above noted valvular pathology resolved with evidence of demand ischemic injury/ subendocardial ischemia 4. Complete heart block post dual chamber pacemaker 5. Hypertensive cardiovascular disease 6. Pericardial effusion 7. Hyperlipidemia 8. Thrombocytopenia 9. Acute ETOH hepatitis with evidence of chronic liver disease 10. Portal hypertension related to above PLAN: 1. Continue Cozaar 25 qd 2. Started Nadolol 40 qd in substitution for Toprol XL/in view of the above noted portal hypertension 3. Continue Aldactone 25 bid and titrate dosage 4. Avoid ASA for now pending improvement in the above noted thrombocytopenia 5. Repeat echocardiography study for evaluation of LV function, valvular function and pericardial effusion
[2019-09-01] MEDS ORDERED: ACETAMINOPHEN 325 MG TABLET (FP) PO PRN (12:59)
--- NOTE | 2019-09-01 13:16 | PN ---
Teaching Attending Note Name of Resident: Yudi Steward ATTENDING PHYSICIAN STATEMENT I saw and evaluated the patient. I reviewed the resident's note and discussed the case with the resident. I agree with the resident's findings and plan as documented. SUBJECTIVE: Patient seen and examined at bedside denies nausea vomiting fever chills chest pain or SOB LFTs improving but bilirubin increased less tremulous today OBJECTIVE: Constitutional: Yes: Well Nourished, Other (tremulous) Eyes: EOMI HENT: Yes: Atraumatic Neck: Yes: Supple Cardiovascular: Yes: Regular Rate and Rhythm Respiratory: Yes: CTA Bilaterally Gastrointestinal: Yes: Soft. No: Distention, Tenderness Edema: LLE: Trace, RLE: Trace Neurological: Yes: Alert, Oriented, Other (tremors) ASSESSMENT AND PLAN: 54M with multiple medical problems including HTN HLD bicuspid aortic valve, critical aortic stenosis s/p bioprosthetic SAVR, short IABP support and dual chamber pacemaker implantation for [facility] 01/09/2018, ETOH use admitted with hallucinations and unsteady gait consistent with alcohol withdrawal Patient no longer delirious but still having whole body tremors Deliriuim Tremens, +/- hepatic encephalopathy/Korsakoff's psychosis/Wernicke's encephalopathy Abnormal LFTs/Mixed hyperbilirubinemia, suspect from above Elevated troponin, suspect demand mediated from above Cirrhosis,likely alcoholic, with portal htn/splenomegaly/Thrombocytopenia, suspect varices Acute on chronic thrombocytopenia, suspect From alcohol related bone marrow suppression over underlying cirrhosis/splenomegaly bicuspid AV with critical s/p bioprosthetic SAVR, short IABP support and dual chamber pacemaker implantation for [facility] 01/09/2018 HTN HLD rhabdomyolysis Plan: contiue [facility] protocol for alcohol withdrawal patient seems to be improving Detox consult. Folate/thiamine GGT noted, LFTs trending down. GI consult noted and appreciated will get Hep B surface Ab-this was not part of hepatitis panel. if negative will give first dose of vaccine. Still pending PPI for GI PPx SCDs for DVT PPx-US duplex negative for DVT will need outpatient hepatology follow up upon discharge continue lactulose TID. Neurology consult noted and appreciated Folate/b12 levels high agree with holding aspirin-platelets count improved agree with stopping metoprolol and starting nadolol Continue spironolactone and losartan PT consult when able to participate Hold statin till LFts stabilize CPK improved
[2019-09-02] MEDS ORDERED: LORazepam 0.5 MG TABLET PO ONE (05:00)
[2019-09-02] MEDS: LACTULOSE 20 GM/30 ML UDC (FOR ORAL USE ONLY) PO SCH ×3 (06:14→21:45)
[2019-09-02] MEDS ORDERED: PT OWN MED DRAWER 7, Y5N ONE (09:09)
[2019-09-02 09:10] LABS: HEMATOCRIT 40.5 % (35.4-49); HEMOGLOBIN 13.7 GM/dL (11.7-16.9); MCH 33.5 pg (25.7-33.7); MCHC 33.9 g/dl (32.0-35.9); MEAN PLT VOLUME 9.2 fl (7.5-11.1); PLATELET COUNT 112 K/MM3 (134-434); RBC 4.09 M/mm3 (4.00-5.60); RDW 14.3 % (11.9-15.9); WHITE BLOOD COUNT 5.5 K/mm3 (4.0-10.0)
--- NOTE | 2019-09-02 09:13 | PN ---
Progress Note, Physician History of Present Illness: Sensorium improved to baseline, no longer tremulous, normally interactive. - Current Medication List Current Medications: Active Medications Acetaminophen (Tylenol -) 650 mg PO Q6H PRN PRN Reason: Fever Or Pain Last Admin: 09/01/19 14:26 Dose: 650 mg Lactulose (Cephulac (Oral Use)) 20 gm PO TID [facility] Last Admin: 09/02/19 06:14 Dose: 20 gm Lorazepam (Ativan Injection -) 2 mg IVPUSH Q2H PRN PRN Reason: ANXIETY Last Admin: 08/31/19 22:29 Dose: 2 mg Losartan Potassium (Cozaar -) 25 mg PO DAILY [facility] Last Admin: 09/01/19 09:22 Dose: 25 mg Nadolol (Corgard -) 40 mg PO DAILY [facility] Last Admin: 09/01/19 09:22 Dose: 40 mg Spironolactone (Aldactone -) 25 mg PO BID [facility] Last Admin: 09/01/19 21:27 Dose: 25 mg - Objective Vital Signs: Vital Signs Temperature 99.3 F 09/02/19 04:49 Pulse Rate 63 09/02/19 04:49 Respiratory Rate 20 09/02/19 04:49 Blood Pressure 100/72 09/02/19 04:49 O2 Sat by Pulse Oximetry (%) 97 09/01/19 21:00 Constitutional: Yes: No Distress, Calm Neck: Yes: Supple Cardiovascular: Yes: Regular Rate and Rhythm Respiratory: Yes: Regular, CTA Bilaterally Gastrointestinal: Yes: Normal Bowel Sounds, Soft Edema: No Labs: INR, PTT INR 1.40 (0.83-1.09) H 09/01/19 05:30 Problem List - Problems (1) S/P aortic valve replacement with bioprosthetic valve Code(s): Z95.3 - PRESENCE OF XENOGENIC HEART VALVE (2) Pacemaker Code(s): Z95.0 - PRESENCE OF CARDIAC PACEMAKER (3) Complete heart block, post-surgical Code(s): I97.89 - OTH POSTPROC COMP AND DISORDERS OF THE CIRC SYS, NEC; I44.2 - ATRIOVENTRICULAR BLOCK, COMPLETE (4) Altered mental status Code(s): R41.82 - ALTERED MENTAL STATUS, UNSPECIFIED Qualifiers: Altered mental status type: delirium Qualified Code(s): R41.0 - Disorientation, unspecified (5) Aortic stenosis, severe Code(s): I35.0 - NONRHEUMATIC AORTIC (VALVE) STENOSIS (6) CHF (congestive heart failure) Code(s): I50.9 - HEART FAILURE, UNSPECIFIED Qualifiers: Heart failure type: diastolic Heart failure chronicity: chronic Qualified Code(s): I50.32 - Chronic diastolic (congestive) heart failure (7) Thrombocytopenia Code(s): D69.6 - THROMBOCYTOPENIA, UNSPECIFIED (8) Alcohol withdrawal delirium Code(s): F10.231 - ALCOHOL DEPENDENCE WITH WITHDRAWAL DELIRIUM (9) Portal hypertension Code(s): K76.6 - PORTAL HYPERTENSION Assessment/Plan CT scan of the abdomen and pelvis revealed an enlarged liver and changes consistent with portal hypertension 01/02/18 Echo: Moderate dilated LV with severely decreased LV fxn, normal RV size and fxn, mod pulm HTN, mod-severe aortic stenosis DIANA 0.66 cm^2, MG 34 mmHg , pacemaker seen 01/05/2018 R&LHc: Severe global HK LVEF 25% with severe DIANA 0.8 cm^2, MG 47 mmHg 03/29/2018 Echo: Normal LV size and fxn with impaired LV relaxation, normal RV size and fxn, biatrial sizes, normal functioning aortic bioprosthesis, mild NH, TR RVSP 31 mmHg, small-moderate pericardial effusion 1. Altered mental status, hepatic encephalopathy/wernicke's encephlopathy/ korsakoff psychosis, resolved 2. History of critical due to bicuspid aortic valve post SAVR/Bioprosthetic aortic valve 3. History of dilated non ischemic cardiomyopathy related to the above noted valvular pathology resolved with evidence of demand ischemic injury/ subendocardial ischemia 4. Complete heart block post dual chamber pacemaker 5. Hypertensive cardiovascular disease 6. Pericardial effusion 7. Hyperlipidemia 8. Thrombocytopenia 9. Acute ETOH hepatitis with evidence of chronic liver disease 10. Portal hypertension related to above PLAN: 1. Continue Cozaar 25 qd 2. Continue Nadolol 40 qd in substitution for Toprol XL/in view of the above noted portal hypertension 3. Continue Aldactone 25 bid and titrate dosage 4. Avoid ASA for now pending improvement in the above noted thrombocytopenia 5. F/u repeat echocardiography study for evaluation of LV function, valvular function and pericardial effusion 6. D/c planning to alcohol rehab?
[2019-09-02 09:21] LABS: INR 1.44 (0.83-1.09); PROTHROMBIN TIME (PATIENT) 17.1 SEC (9.7-13.0)
[2019-09-02] MEDS: NADOLOL 40 MG TABLET (FP) PO SCH (09:31)
[2019-09-02] MEDS: SPIRONOLACTONE 25 MG TABLET (FP) PO SCH ×2 (09:31→21:45)
[2019-09-02] MEDS: LOSARTAN POTASSIUM 25 MG TABLET PO SCH (09:31)
[2019-09-02 09:49] LABS: ALBUMIN 2.8 g/dl (3.4-5.0); BILIRUBIN,TOTAL 1.6 mg/dL (0.2-1); BLOOD UREA NITROGEN 12.4 mg/dL (7-18); CALCIUM 8.8 mg/dL (8.5-10.1); CREATININE 0.9 mg/dL (0.55-1.3); POTASSIUM 4.3 mmol/L (3.5-5.1); TOT PROT 8.5 g/dl (6.4-8.2)
--- NOTE | 2019-09-02 14:47 | PN ---
Teaching Attending Note Name of Resident: Werner Phelna ATTENDING PHYSICIAN STATEMENT I saw and evaluated the patient. I reviewed the resident's note and discussed the case with the resident. I agree with the resident's findings and plan as documented. SUBJECTIVE: Patient has no complaints. OBJECTIVE: Vital Signs Period Temp Pulse Resp BP Sys/Hernandez Pulse Ox Last 24 Hr 97.7 F-99.3 F 63-84 20-20 100-128/71-78 97-99 HEART: S1S2, RRR LUNGS: Clear ABDOMEN: Soft, non-tender, non-distended, normal BS EXTREMITIES: No edema Laboratory Results - last 24 hr 09/02/19 09/02/19 09/02/19 08:50 08:50 08:50 WBC 5.5 RBC 4.09 Hgb 13.7 Hct 40.5 MCV 99.0 H MCH 33.5 MCHC 33.9 RDW 14.3 Plt Count 112 L D MPV 9.2 PT with INR 17.10 H INR 1.44 H Sodium 135 L Potassium 4.3 Chloride 104 Carbon Dioxide 22 Anion Gap 9 BUN 12.4 Creatinine 0.9 Est GFR (CKD-EPI)AfAm 112.62 Est GFR (CKD-EPI)NonAf 97.17 Random Glucose 122 H Calcium 8.8 Total Bilirubin 1.6 H AST 48 H ALT 23 Alkaline Phosphatase 76 Total Protein 8.5 H Albumin 2.8 L Current Medications Generic Name Dose Route Start Last Admin Trade Name Freq PRN Reason Stop Dose Admin Acetaminophen 650 mg 09/01/19 12:59 09/01/19 14:26 Tylenol - PO 650 mg Q6H PRN Administration Fever Or Pain Lactulose 20 gm 08/30/19 18:15 09/02/19 06:14 Cephulac (Oral Use) PO 20 gm TID [facility] Administration Lorazepam 2 mg 08/30/19 23:59 08/31/19 22:29 Ativan Injection - IVPUSH 2 mg Q2H PRN Administration ANXIETY Losartan Potassium 25 mg 08/30/19 10:00 09/02/19 09:31 Cozaar - PO 25 mg DAILY [facility] Administration Nadolol 40 mg 09/01/19 10:00 09/02/19 09:31 Corgard - PO 40 mg DAILY [facility] Administration Spironolactone 25 mg 08/31/19 22:00 09/02/19 09:31 Aldactone - PO 25 mg BID [facility] Administration ASSESSMENT AND PLAN: This is a 54 year old man with a history of HTN, hyperlipidemia, chronic systolic heart failure, dilated cardiomyopathy, bioprosthetic SAVR for critical secondary to bicuspid AV, pacemaker for 3rd degree AVB, alcohol abuse who presented to the ED with hallucinations. 1. Delirium tremens - Resolved 2. Alcohol withdrawal - Continue Ativan as needed 3. Continuous alcohol dependence - Start thiamine, folic acid, multivitamin 4. 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 Thrombocytopenia - Platelets improving 6. Demand ischemia 7. HTN - Continue Coneilar, Corgard, Aldactone 8. Hyperlipidemia - Lipitor held secondary to liver disease 9. Chronic systolic heart failure secondary to dilated cardiomyopathy 10. Critical secondary to bicuspid AV - History of bioprosthetic SAVR 11. 3rd degree AVB - History of pacemaker 12. Rhabdomyolysis - Resolved
--- NOTE | 2019-09-02 16:26 | PN ---
Physical Exam: SUBJECTIVE: Patient seen and examined NAEON. Last Ativan was yseterday noon-time Denies hallucinations, [place]O, agitation. States that his tremors are due to his nervousness OBJECTIVE: Vital Signs Period Temp Pulse Resp BP Sys/Hernandez Pulse Ox Last 24 Hr 97.7 F-99.3 F 63-84 20-20 100-128/64-78 97-99 CIWA 5(fine tremos, agitation) GENERAL: The patient is awake, alert to name. Appears agitated HEAD: NC. No diaphoresis EYES: mild scleral icterus, conjunctiva clear. ENT: Ears normal, nares patent, moist mucous membranes. NECK: Trachea midline, full range of motion, supple. LUNGS: Breath sounds equal, clear to auscultation bilaterally, no wheezes, no crackles, no accessory muscle use. HEART: normal HR, S1, S2 without murmur, rub or gallop. Palpable Left chest PPM. ABDOMEN: Soft, nontender, nondistended, no guarding, no rebound. EXTREMITIES: 2+ pulses, warm, well-perfused, no edema. NEUROLOGICAL: alert, calm, following commands and conversational SKIN: dry, warm Laboratory Results - last 24 hr 09/01/19 09/02/19 09/02/19 05:30 08:50 08:50 WBC 5.5 RBC 4.09 Hgb 13.7 Hct 40.5 MCV 99.0 H MCH 33.5 MCHC 33.9 RDW 14.3 Plt Count 112 L D MPV 9.2 PT with INR 17.10 H INR 1.44 H Sodium Potassium Chloride Carbon Dioxide Anion Gap BUN Creatinine Est GFR (CKD-EPI)AfAm Est GFR (CKD-EPI)NonAf Random Glucose Calcium Total Bilirubin AST ALT Alkaline Phosphatase Total Protein Albumin Hep Bs Antibody Non reactive 09/02/19 08:50 WBC RBC Hgb Hct MCV MCH MCHC RDW Plt Count MPV PT with INR INR Sodium 135 L Potassium 4.3 Chloride 104 Carbon Dioxide 22 Anion Gap 9 BUN 12.4 Creatinine 0.9 Est GFR (CKD-EPI)AfAm 112.62 Est GFR (CKD-EPI)NonAf 97.17 Random Glucose 122 H Calcium 8.8 Total Bilirubin 1.6 H AST 48 H ALT 23 Alkaline Phosphatase 76 Total Protein 8.5 H Albumin 2.8 L Hep Bs Antibody Active Medications Generic Name Dose Route Start Last Admin Trade Name Freq PRN Reason Stop Dose Admin Acetaminophen 650 mg 09/01/19 12:59 09/01/19 14:26 Tylenol - PO 650 mg Q6H PRN Administration Fever Or Pain Folic Acid 1 mg 09/03/19 10:00 Folic Acid - PO DAILY [facility] Lactulose 20 gm 08/30/19 18:15 09/02/19 15:44 Cephulac (Oral Use) PO Not Given TID [facility] Lorazepam 2 mg 08/30/19 23:59 08/31/19 22:29 Ativan Injection - IVPUSH 2 mg Q2H PRN Administration ANXIETY Losartan Potassium 25 mg 08/30/19 10:00 09/02/19 09:31 Cozaar - PO 25 mg DAILY [facility] Administration Multivitamins/Minerals 1 each 09/03/19 10:00 Theragran-M PO DAILY [facility] Nadolol 40 mg 09/01/19 10:00 09/02/19 09:31 Corgard - PO 40 mg DAILY [facility] Administration Spironolactone 25 mg 08/31/19 22:00 09/02/19 09:31 Aldactone - PO 25 mg BID [facility] Administration Thiamine HCl 100 mg 09/03/19 10:00 Vitamin B1 - PO DAILY [facility] ASSESSMENT/PLAN: Patient is a 54 y/o male with a history of HTN, HLD, and HFrER with pacemaker who presents for 2 days of CP and visual hallucinations. #AMS -- likely 2/2 to EtOH withdrawal --improving > CIWA 5 > CT A/P(08/29/19): liver 17.2cm, cirrhosis, splenomegaly, possible esophageal varices > CT H(08/29/19): neg > B12 ~1444 > Folate ~18 - Ativan protocol - Neuro Consult --thinking likely hepatic encephalopathy --ativan taper/B1/B12/folate supplementation - GI Consult --lactulose 30mg daily --hepatitis panel -- pending #Cirrhosis > Surinder B -> Surinder A > Tbil 2.7, INR 1.3, Alb 3.0 ---> Tbil 1.6, INR 1.44, Alb 2.8 > ammonia level ~ 37 - lactulose TID - spironlactone BID #tropinemia > troponin 0.06->0.07->0.06->0.04 - monitor patient on tele - continuous cardiac monitoring - f/u repeat echo -- pending #thrombocytopenia > Plt 112 - holding DVT ppx and ASA - trend daily Plt #HLD - continue atorvastatin #HTN -continue home losartan -stopped home Toprol XL, started Nadolol #Aortic Valve Replacement(Magna 25) #Complete Heart Block - continue spironolactone - per patient has a dual chamber pacemaker - Cardio Consult: --trend trops --fu rpt echo --substitue Toprolol for Nadolol 40mg QD, losartan 25 qd, aldactone 25 qd --hold ASA until resolution of thrombocytopenia DVT ppx > venous duplex(08/30/19): neg - SCD's FEN - sodium controlled diet Dispo: monitor on tele -dc plan: refusing rehab Visit type - Emergency Visit Emergency Visit: No - New Patient This patient is new to me today: No - Critical Care Critical Care patient: No ATTENDING PHYSICIAN STATEMENT I saw and evaluated the patient. I reviewed the resident's note and discussed the case with the resident. I agree with the resident's findings and plan as documented. SUBJECTIVE: OBJECTIVE: ASSESSMENT AND PLAN:
--- NOTE | 2019-09-02 17:49 | ECHO ---
Name: PATRICK PHILLIPS Exam:Adult Echocardiogram Study Date: 09/02/2019 03:37 PM Age: 54 yrs Reason For Study: cardiomyopathy, elevated/borderline TN Height: 66 in Weight: 185 lb BSA: 1.9 m2 MMode/2D Measurements & Calculations IVSd: 1.2 cm Ao root diam: 2.9 cm LVIDd: 4.1 cm LA dimension: 2.7 cm LVIDs: 2.8 cm LVPWd: 1.2 cm LVPWs: 1.7 cm EDV(Teich): 74.5 ml ESV(Teich): 29.6 ml LVOT diam: 1.8 cm Doppler Measurements & Calculations MV E max magui: 76.0 cm/sec Ao V2 max: 254.0 cm/sec MV A max magui: 110.6 cm/sec Ao max P.8 mmHg MV E/A: 0.69 Ao V2 mean: 184.4 cm/sec MV dec time: 0.32 sec Ao mean P.8 mmHg Ao V2 VTI: 46.3 cm DIANA(V,D): 0.75 cm2 LV V1 max P.5 mmHg PA V2 max: 105.2 cm/sec LV V1 max: 79.5 cm/sec PA max P.4 mmHg Tech Comments pt non cooperative on and off throughout test. Procedure A complete two-dimensional transthoracic echocardiogram was performed (2D, M-mode, Doppler and color flow Doppler). Left Ventricle The left ventricle is normal in size. There is mild concentric left ventricular hypertrophy. Left ebony tricular systolic function is normal. Ejection Fraction = 55-60%. No regional wall motion abnormalities noted. Right Ventricle The right ventricle is not well visualized. Atria The left atrial size is normal. Right atrial size is normal. Mitral Valve There is mild mitral annular calcification. There is trace to mild mitral regurgitation. Tricuspid Valve The tricuspid valve is normal in structure and function. No tricuspid regurgitation. Aortic Valve There is a bioprosthetic aortic valve. The prosthetic aortic valve is well-seated. Aortic mean pressu re gradient= 19 mmHg. No aortic regurgitation is present. Pulmonic Valve The pulmonic valve is not well visualized. Great Vessels The aortic root is normal size. Pericardium/Pleura There is no pericardial effusion. Interpretation Summary The left ventricle is normal in size. There is mild concentric left ventricular hypertrophy. Left ventricular systolic function is normal. No regional wall motion abnormalities noted. Ejection Fraction = 55-60%. The right ventricle is not well visualized. The left atrial size is normal. Right atrial size is normal. There is mild mitral annular calcification. There is trace to mild mitral regurgitation. There is a bioprosthetic aortic valve. The prosthetic aortic valve is well-seated. Aortic mean pressure gradient= 19 mmHg No aortic regurgitation is present. There is no pericardial effusion. Adán Mcmullen MD 09/02/2019 05:48 PM
[2019-09-03] MEDS: LACTULOSE 20 GM/30 ML UDC (FOR ORAL USE ONLY) PO SCH ×2 (06:14→14:16)
[2019-09-03 06:20] VITALS: PULSE 60
[2019-09-03 07:21] LABS: BASO % 0.7 % (0-2.0); EOS % 1.1 % (0-4.5); HEMATOCRIT 38.1 % (35.4-49); LYMPH % 21.6 % (8-40); MCH 33.6 pg (25.7-33.7); MCHC 34.1 g/dl (32.0-35.9); MEAN CELL VOLUME 98.4 fl (80-96); MEAN PLT VOLUME 8.9 fl (7.5-11.1); MONO % 19.1 % (3.8-10.2); NEUT % 57.5 % (42.8-82.8); PLATELET COUNT 115 K/MM3 (134-434); RBC 3.88 M/mm3 (4.00-5.60); RDW 13.8 % (11.9-15.9); WHITE BLOOD COUNT 4.9 K/mm3 (4.0-10.0)
[2019-09-03 07:38] LABS: INR 1.33 (0.83-1.09); PROTHROMBIN TIME (PATIENT) 15.7 SEC (9.7-13.0)
[2019-09-03 07:47] LABS: ALBUMIN 2.6 g/dl (3.4-5.0); BILIRUBIN,TOTAL 1.1 mg/dL (0.2-1); BLOOD UREA NITROGEN 20.9 mg/dL (7-18); CALCIUM 8.6 mg/dL (8.5-10.1); CREATININE 0.9 mg/dL (0.55-1.3); MAGNESIUM 1.8 mg/dL (1.8-2.4); PHOSPHOROUS 3.3 mg/dL (2.5-4.9); POTASSIUM 3.8 mmol/L (3.5-5.1)
[2019-09-03] MEDS ORDERED: FOLIC ACID 1 MG TABLET (FP) PO SCH (10:00)
[2019-09-03] MEDS ORDERED: THIAMINE HCL 100 MG TABLET (FP) PO SCH (10:00)
[2019-09-03] MEDS ORDERED: MULTIVITAMINS THER W-MINERALS COMBO TABLET (FP) PO SCH (10:00)
[2019-09-03] MEDS: LOSARTAN POTASSIUM 25 MG TABLET PO SCH (10:20)
[2019-09-03] MEDS: SPIRONOLACTONE 25 MG TABLET (FP) PO SCH (10:20)
[2019-09-03] MEDS: NADOLOL 40 MG TABLET (FP) PO SCH (10:21)
[2019-09-03 13:58] VITALS: BP 121/84; TEMP 98.6
--- NOTE | 2019-09-03 14:59 | PN ---
Teaching Attending Note Name of Resident: Rory Slaughter ATTENDING PHYSICIAN STATEMENT I saw and evaluated the patient. I reviewed the resident's note and discussed the case with the resident. I agree with the resident's findings and plan as documented. SUBJECTIVE: No complaints. No hallucinations/tremors/nnausea/vomiting. No fever/ chills/sweats OBJECTIVE: Afebrile, hemodynamically Stable. Mild tremor. Last Vital Signs Temp Pulse Resp BP Pulse Ox 98.6 F 60 18 121/84 97 09/03/19 12:00 09/03/19 12:00 09/03/19 12:00 09/03/19 12:00 09/03/19 09:00 HEENT: Atraumatic, Normocephalic. HEART: S1S2, RRR LUNGS: Clear to auscultation ABDOMEN: Soft, non-tender, non-distended, normal BS EXTREMITIES: No edema, no calf tenderness. NEURO: AAO x 3 Tone/Power normal all 4 extremities. VINOD. Laboratory Results - last 24 hr 09/01/19 09/03/19 09/03/19 05:30 05:50 05:50 WBC 4.9 RBC 3.88 L Hgb 13.0 Hct 38.1 MCV 98.4 H MCH 33.6 MCHC 34.1 RDW 13.8 Plt Count 115 L MPV 8.9 Absolute Neuts (auto) 2.8 Neutrophils % 57.5 Lymphocytes % 21.6 Monocytes % 19.1 H Eosinophils % 1.1 D Basophils % 0.7 Nucleated RBC % 0 PT with INR 15.70 H INR 1.33 H Sodium Potassium Chloride Carbon Dioxide Anion Gap BUN Creatinine Est GFR (CKD-EPI)AfAm Est GFR (CKD-EPI)NonAf Random Glucose Calcium Phosphorus Magnesium Total Bilirubin AST ALT Alkaline Phosphatase Total Protein Albumin Hep Bs Antibody Non reactive 09/03/19 05:50 WBC RBC Hgb Hct MCV MCH MCHC RDW Plt Count MPV Absolute Neuts (auto) Neutrophils % Lymphocytes % Monocytes % Eosinophils % Basophils % Nucleated RBC % PT with INR INR Sodium 132 L Potassium 3.8 Chloride 102 Carbon Dioxide 23 Anion Gap 8 BUN 20.9 H Creatinine 0.9 Est GFR (CKD-EPI)AfAm 112.62 Est GFR (CKD-EPI)NonAf 97.17 Random Glucose 99 Calcium 8.6 Phosphorus 3.3 Magnesium 1.8 Total Bilirubin 1.1 H AST 40 H ALT 20 Alkaline Phosphatase 75 Total Protein 8.0 Albumin 2.6 L Hep Bs Antibody Discharge Medications Medication Instructions Recorded Aspirin 81 mg PO DAILY 08/29/19 Atorvastatin Ca [Lipitor] 20 mg PO DAILY 08/29/19 Losartan Potassium 25 mg PO DAILY 08/29/19 Spironolactone 25 mg PO DAILY 08/29/19 Folic Acid - 1 mg PO DAILY #30 tablet 09/03/19 Lactulose (Oral Use) [Cephulac -] 20 gm PO TID #60 udc 09/03/19 Nadolol [Corgard -] 40 mg PO DAILY #30 tablet 09/03/19 Thiamine HCl [Vitamin B1 -] 100 mg PO DAILY #30 tablet 09/03/19 ASSESSMENT AND PLAN: 54 year old male with a history of HTN, hyperlipidemia, chronic systolic heart failure, dilated cardiomyopathy, bioprosthetic AVR for critical secondary to bicuspid AV, 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 1. Delirium tremens - Resolved s/p alcohol detox protocol. Started on Thiamine, folic acid, multivitamin 2. Alcoholic Liver Cirrhosis with portal HTN Continue Corgard, Aldactone, Lactulose. Metoprolol changed to Nadolol due to possible varices Follow up with Calender Operator Helper. 3. Thrombocytopenia sec to above - Platelets improving 4. HTN - Continue Cozaar, Corgard, Aldactone 5. Hyperlipidemia - Lipitor held secondary to liver disease 6. Hx of Chronic systolic heart failure secondary to dilated cardiomyopathy - appears to be resolved. EF up to 50% on Echo. No evidence of CHF exacerbation. On BB, NITHIN-I, Aldactone. Cardio follow up as out-patient. 7. Critical secondary to bicuspid AV s/p bioprosthetic AVR - Cardio outpatient follow up. 8. 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 9. Acute Rhabdomyolysis - resolved with IV hydration. Troponin egression sec to rhabdo - resolved. Medically optimized for discharge with GI/Herpatology and Cardiology follow ups. Declines in-patient Rehab.
--- NOTE | 2019-09-03 19:44 | DS ---
Physical Exam: SUBJECTIVE: Patient seen and examined OBJECTIVE: Vital Signs Period Temp Pulse Resp BP Sys/Hernandez Pulse Ox Last 24 Hr 98.4 F-98.7 F 60-70 18-20 99-121/52-84 97-97 PHYSICAL EXAM GENERAL: The patient is awake, alert, and fully oriented, in no acute distress. HEAD: Normal with no signs of trauma. EYES: PERRL, extraocular movements intact, sclera anicteric, conjunctiva clear. ENT: Ears normal, nares patent, oropharynx clear without exudates, moist mucous membranes. NECK: Trachea midline, full range of motion, supple. LUNGS: Breath sounds equal, clear to auscultation bilaterally, no wheezes, no crackles, no accessory muscle use. HEART: Regular rate and rhythm, S1, S2 without murmur, rub or gallop. ABDOMEN: Soft, nontender, nondistended, normoactive bowel sounds, no guarding, no rebound, no hepatosplenomegaly, no masses. EXTREMITIES: 2+ pulses, warm, well-perfused, no edema. NEUROLOGICAL: Cranial nerves II through XII grossly intact. Normal speech, gait not observed. PSYCH: Normal mood, normal affect. SKIN: Warm, dry, normal turgor, no rashes or lesions noted. LABS Laboratory Results - last 24 hr 09/03/19 09/03/19 09/03/19 05:50 05:50 05:50 WBC 4.9 RBC 3.88 L Hgb 13.0 Hct 38.1 MCV 98.4 H MCH 33.6 MCHC 34.1 RDW 13.8 Plt Count 115 L MPV 8.9 Absolute Neuts (auto) 2.8 Neutrophils % 57.5 Lymphocytes % 21.6 Monocytes % 19.1 H Eosinophils % 1.1 D Basophils % 0.7 Nucleated RBC % 0 PT with INR 15.70 H INR 1.33 H Sodium 132 L Potassium 3.8 Chloride 102 Carbon Dioxide 23 Anion Gap 8 BUN 20.9 H Creatinine 0.9 Est GFR (CKD-EPI)AfAm 112.62 Est GFR (CKD-EPI)NonAf 97.17 Random Glucose 99 Calcium 8.6 Phosphorus 3.3 Magnesium 1.8 Total Bilirubin 1.1 H AST 40 H ALT 20 Alkaline Phosphatase 75 Total Protein 8.0 Albumin 2.6 L HOSPITAL COURSE: Date of Admission:08/29/19 Date of Discharge: 09/03/19 Discharge Summary Problems reviewed: Yes Reason For Visit: CONGESTIVE HEART FAILURE;ALTERED MENTAL STATUS Condition: Stable - Instructions Diet, Activity, Other Instructions: You were evaluated in the hospital for confusion with associated hallucinations. This was likely due to alcohol withdrawal. You completed detox while you were here in the hospital. CAT scan of your abdomen showed that your liver is damaged and this scarring is causing a buildup of pressure in your veins. You were evaluated by the senior lead project manager and the project administrator and some changes to your medications were made. Please take note of the following changes to your medications: - NEW medications: -- Nadolol 40mg, once daily -- Lactulose 20g, three times daily; decrease dose as needed to keep bowel movements at 3-4 times per day. - CHANGE medications: -- spironolactone 25mg, twice daily - Please STOP taking Metoprolol 25mg. - continue other home medications Please follow-up with the doctors below: - County Assessor(Dr Rory Oviedo) - Nuclear Waste Management Engineer(Dr Rainer Ortiz) - PCP(or set-up a PCP at our with clinic with Dr Villatoro) Additional instructions: - diet: maintain a LOW SALT and heart healthy diet(low sugar/salt/fat, high fiber) - activity: normal activity as tolerated - avoid substances of abuse such as alcohol, cocaine, marijuana Please seek immediate medical evaluation or go to the Emergency Department if you experience: - shortness of breath, trouble breathing, chest pain - confusion, hallucinations, tremors, seizures Usted fue evaluado en el hospital por confusin con alucinaciones asociadas. Barrera probablemente se perfecto a la abstinencia de alcohol. Completaste la desintoxicacin mientras estabas aqu en el hospital. La tomografa computarizada de andre abdomen mostr que andre hgado est daado y esta cicatrizacin est causando karine acumulacin de presin en kaz venas. Usted fue evaluado por el gastroenterlogo y el cardilogo y se hicieron algunos cambios a kaz medicamentos. [place] nota de los siguientes cambios en kaz medicamentos: - NUEVOS medicamentos: - Nadolol 40mg, karine vez al da - Lactulosa 20 g, boris veces al da; disminuya la dosis segn sea necesario para mantener las evacuaciones intestinales a 3-4 veces por da. - CAMBIO de medicamentos: - Espironolactona 25 mg, dos veces al da - DEJE de amilcar metoprolol 25mg. - continuar otros medicamentos caseros Mallory un seguimiento con los mdicos a continuacin: - Cardilogo (Dr. Rory Oviedo) - Gastroenterlogo (Dr. Rainer Ortiz) - PCP (o configurar un PCP en nuestra clnica con el Dr. Villatoro) Instrucciones adicionales: - dieta: mantenga karine KAITLYNN BAJA y karine dieta saludable para el corazn (baja en azcar / kaitlynn / grasa, tre en fibra) - actividad: actividad normal segn lo tolerado - evitar sustancias de abuso belia el alcohol, la cocana, la marihuana Busque karine evaluacin mdica inmediata o vaya al Departamento de emergencias si experimenta: - falta de aliento, dificultad para respirar, dolor en el pecho - confusin, alucinaciones, temblores, convulsiones Referrals: Antoine Ortiz DO [Staff Physician] - Guy Colvin MD [Primary Care Provider] - Rory Oviedo MD [Staff Physician] - Shamir Villatoro MD [Staff Physician] - Disposition: HOME - Home Medications Comprehensive Discharge Medication List: Ambulatory Orders Aspirin 81 mg PO DAILY 08/29/19 Atorvastatin Ca [Lipitor] 20 mg PO DAILY 08/29/19 Losartan Potassium 25 mg PO DAILY 08/29/19 Spironolactone 25 mg PO DAILY 08/29/19 Folic Acid - 1 mg PO DAILY #30 tablet 09/03/19 Lactulose (Oral Use) [Cephulac -] 20 gm PO TID #60 udc 09/03/19 Nadolol [Corgard -] 40 mg PO DAILY #30 tablet 09/03/19 Thiamine HCl [Vitamin B1 -] 100 mg PO DAILY #30 tablet 09/03/19 ATTENDING PHYSICIAN STATEMENT I saw and evaluated the patient. I reviewed the resident's note and discussed the case with the resident. I agree with the resident's findings and plan as documented. SUBJECTIVE: OBJECTIVE: ASSESSMENT AND PLAN:
== END 2019-09-03 14:20 | disposition home or self-care (01) | DRG 433 ==
LOC: JER 10:21 → JERBED 15:36 → J4W 20:42
PROVIDERS: ADMIT Hospitalist
DX: K70.30 Alcoholic cirrhosis of liver without ascites (principal); E51.2 Wernicke's encephalopathy; D68.9 Coagulation defect, unspecified; M62.82 Rhabdomyolysis; I24.8 Other forms of acute ischemic heart disease; K76.6 Portal hypertension; I50.22 Chronic systolic (congestive) heart failure; F10.231 Alcohol dependence with withdrawal delirium; I97.89 Other postprocedural complications and disorders of the circulatory system, not elsewhere classified; I43 Cardiomyopathy in diseases classified elsewhere; I31.3 Pericardial effusion (noninflammatory); E80.6 Other disorders of bilirubin metabolism; K72.90 Hepatic failure, unspecified without coma; K70.10 Alcoholic hepatitis without ascites; E78.5 Hyperlipidemia, unspecified; D69.6 Thrombocytopenia, unspecified; R44.1 Visual hallucinations; R26.81 Unsteadiness on feet; R16.1 Splenomegaly, not elsewhere classified; R41.0 Disorientation, unspecified; I35.0 Nonrheumatic aortic (valve) stenosis; R94.5 Abnormal results of liver function studies; R80.9 Proteinuria, unspecified; I11.0 Hypertensive heart disease with heart failure; Z95.0 Presence of cardiac pacemaker; Z95.3 Presence of xenogenic heart valve
CPT/HCPCS: 36415; 70450-TC; 71045-TC-FY; 74176-TC; 76705-TC; 80048; 80053; 80074; 80076; 80307; 81003; 82140; 82248; 82550; 82553; 82607; 82746; 82977; 83605; 83735; 83880; 84100; 84443; 84484; 85025; 85027; 85610; 86706; 87086; 87389; 93005; 93010; 93306-TC; 93970-TC; 97116-GP; 97162-GP; 99284-25; J7030

== ENCOUNTER 2023-03-04 12:41 | Inpatient (IN) | payer OTHER ==
[2023-03-04 13:11] VITALS: BMI 30.7
[2023-03-04] MEDS ORDERED: LIDOCAINE 5% TOPICAL PATCH TP ONE (13:53)
[2023-03-04] MEDS ORDERED: ACETAMINOPHEN 1000 MG/100 ML BAG IVPB ONE (13:53)
[2023-03-04] MEDS ORDERED: ACETAMINOPHEN INJECTION 100 ML IVPB ONE (14:05)
[2023-03-04] MEDS ORDERED: LIDOCAINE 5% TOPICAL PATCH ONE (14:06)
[2023-03-04 14:09] LABS: BASO % 0.9 % (0-2.0); EOS % 0.3 % (0-4.5); HEMATOCRIT 42.8 % (35.4-49); HEMOGLOBIN 14.9 GM/dL (11.7-16.9); LYMPH % 18.2 % (8-40); MCH 34.7 pg (25.7-33.7); MCHC 34.8 g/dl (32.0-35.9); MEAN CELL VOLUME 99.7 fl (80-96); MEAN PLT VOLUME 9.9 fl (7.5-11.1); MONO % 16.1 % (3.8-10.2); NEUT % 64.5 % (42.8-82.8); RBC 4.29 M/mm3 (4.00-5.60); RDW 15.6 % (11.9-15.9); WHITE BLOOD COUNT 3.5 K/mm3 (4.0-10.0)
[2023-03-04 14:15] LABS: INR 1.96 (0.83-1.09); PROTHROMBIN TIME (PATIENT) 22.6 SEC (9.7-13.0)
[2023-03-04 14:18] LABS: ACTIVATED PTT 34.9 SECONDS (25.2-36.5)
[2023-03-04] MEDS ORDERED: chlordiazePOXIDE HCL 25 MG CAPSULE PO ONE (14:23)
[2023-03-04 14:28] LABS: EPI CELLS 9 /uL (0-25.1); HYALINE CASTS 5 /uL (0-3.1); URINE APPEARANCE CLOUDY; URINE BILIRUBIN 2+ (NEGATIVE); URINE COLOR ORANGE; URINE GLUCOSE (UA) NEGATIVE (NEGATIVE); URINE KETONE TRACE (NEGATIVE); URINE LEUK ESTERASE 1+ (NEGATIVE); URINE NITRITE POSITIVE (NEGATIVE); URINE PROTEIN 1+ (NEGATIVE); URINE WBC 8 /uL (0-25.8)
[2023-03-04 14:29] LABS: POTASSIUM 3.6 mmol/L (3.5-5.1)
[2023-03-04] MEDS ORDERED: chlordiazePOXIDE HCL 25 MG CAPSULE ONE (14:29)
[2023-03-04 14:31] LABS: ALBUMIN 2.7 g/dl (3.4-5.0); BLOOD UREA NITROGEN 15.8 mg/dL (7-18); CALCIUM 9.2 mg/dL (8.5-10.1)
[2023-03-04 14:32] LABS: PLATELET COUNT 15 10^3/uL (134-434)
[2023-03-04 14:34] LABS: CREATININE 1.1 mg/dL (0.55-1.3)
[2023-03-04 14:36] LABS: BILIRUBIN,TOTAL 5.3 mg/dL (0.2-1); TOT PROT 8.5 g/dl (6.4-8.2)
[2023-03-04 14:38] LABS: URINE BACTERIA 6.9 /uL (0-1359); URINE RBC 66.4 /uL (0-23.9); YEAST NEGATIVE (NEGATIVE)
[2023-03-04] MEDS ORDERED: CEFTRIAXONE 1,000 MG in DEXTROSE 5%-WATER - 50 ML IVPB ONE (14:41)
[2023-03-04] MEDS ORDERED: CEFTRIAXONE 1 GM/50 ML BAG ONE (15:18)
[2023-03-04] MEDS ORDERED: LACTATED RINGERS SOLUTION 1,000 ML IV SCH (18:15)
[2023-03-04] MEDS ORDERED: ATORVASTATIN CA 80 MG TABLET (FP) PO SCH (22:00)
[2023-03-04] MEDS: RIFAXIMIN 550 MG TABLET PO SCH (22:08)
[2023-03-04] MEDS: LACTULOSE 20 GM/30 ML UDC (FOR ORAL USE ONLY) PO SCH (22:08)
[2023-03-04] MEDS: HEPARIN NA (PORCINE) 5,000 UNITS/ML 1ML VIAL SQ SCH (22:08)
[2023-03-05] MEDS: HEPARIN NA (PORCINE) 5,000 UNITS/ML 1ML VIAL SQ SCH (05:03)
[2023-03-05] MEDS ORDERED: NADOLOL 40 MG TABLET (FP) PO SCH (10:00)
[2023-03-05 10:11] LABS: BASO % 0.8 % (0-2.0); EOS % 0.6 % (0-4.5); HEMATOCRIT 40.3 % (35.4-49); HEMOGLOBIN 13.9 GM/dL (11.7-16.9); LYMPH % 30.8 % (8-40); MCH 34.9 pg (25.7-33.7); MCHC 34.6 g/dl (32.0-35.9); MEAN CELL VOLUME 100.9 fl (80-96); MONO % 16.1 % (3.8-10.2); NEUT % 51.7 % (42.8-82.8); PLATELET COUNT 48 10^3/uL (134-434); RBC 3.99 M/mm3 (4.00-5.60); RDW 15.5 % (11.9-15.9); WHITE BLOOD COUNT 3.4 K/mm3 (4.0-10.0)
[2023-03-05 10:17] LABS: INR 2.07 (0.83-1.09); PROTHROMBIN TIME (PATIENT) 23.8 SEC (9.7-13.0)
[2023-03-05 10:20] LABS: ACTIVATED PTT 32.2 SECONDS (25.2-36.5)
[2023-03-05 10:30] LABS: POTASSIUM 3.4 mmol/L (3.5-5.1)
[2023-03-05 10:32] LABS: CALCIUM 8.6 mg/dL (8.5-10.1)
[2023-03-05 10:33] LABS: ALBUMIN 2.4 g/dl (3.4-5.0); BLOOD UREA NITROGEN 16.6 mg/dL (7-18); MAGNESIUM 1.5 mg/dL (1.8-2.4)
[2023-03-05 10:36] LABS: PHOSPHOROUS 2.8 mg/dL (2.5-4.9)
[2023-03-05 10:37] LABS: TOT PROT 7.8 g/dl (6.4-8.2)
[2023-03-05 10:38] LABS: BILIRUBIN,TOTAL 4.8 mg/dL (0.2-1); N-TERMINAL BNP 403.5 pg/ml (5-125)
[2023-03-05] MEDS ORDERED: LORazepam 1 MG TABLET PO SCH ×2 (11:00→12:39)
[2023-03-05] MEDS ORDERED: LORazepam 2 MG TABLET PO SCH (11:00)
[2023-03-05] MEDS ORDERED: NADOLOL 20 MG TABLET (FP) ONE (11:44)
[2023-03-05] MEDS: LACTULOSE 20 GM/30 ML UDC (FOR ORAL USE ONLY) PO SCH ×2 (11:46→21:15)
[2023-03-05] MEDS: CEFTRIAXONE 1 GM in DEXTROSE 5%-WATER - 50 ML IVPB SCH (11:46)
[2023-03-05] MEDS: SPIRONOLACTONE 25 MG TABLET PO SCH (11:47)
[2023-03-05] MEDS: PANTOPRAZOLE 40 MG TABLET PO SCH (11:47)
[2023-03-05] MEDS: THIAMINE HCL 100 MG TABLET (FP) PO SCH (11:47)
[2023-03-05] MEDS: FOLIC ACID 1 MG TABLET (FP) PO SCH (11:47)
[2023-03-05] MEDS: RIFAXIMIN 550 MG TABLET PO SCH ×2 (11:47→21:15)
[2023-03-05] MEDS ORDERED: NADOLOL 20 MG TABLET (FP) PO SCH (11:49)
[2023-03-05] MEDS ORDERED: LORazepam 1 MG TABLET PO PRN (12:05)
[2023-03-05] MEDS: LORazepam 1 MG TABLET PO SCH ×2 (12:47→17:19)
[2023-03-05] MEDS: KCL 10 MEQ IVPB 10 MEQ/100 ML INFUS.BAG IVPB SCH ×2 (12:48→15:06)
[2023-03-06] MEDS: LORazepam 1 MG TABLET PO SCH ×4 (04:59→18:21)
[2023-03-06] MEDS: FOLIC ACID 1 MG TABLET (FP) PO SCH (09:34)
[2023-03-06] MEDS: CEFTRIAXONE 1 GM in DEXTROSE 5%-WATER - 50 ML IVPB SCH (09:34)
[2023-03-06] MEDS: SPIRONOLACTONE 25 MG TABLET PO SCH (09:34)
[2023-03-06] MEDS: PANTOPRAZOLE 40 MG TABLET PO SCH (09:34)
[2023-03-06] MEDS: LACTULOSE 20 GM/30 ML UDC (FOR ORAL USE ONLY) PO SCH (09:34)
[2023-03-06] MEDS: THIAMINE HCL 100 MG TABLET (FP) PO SCH (09:34)
[2023-03-06] MEDS: RIFAXIMIN 550 MG TABLET PO SCH (09:34)
[2023-03-06 11:43] LABS: BASO % 1.1 % (0-2.0); EOS % 0.9 % (0-4.5); LYMPH % 32.5 % (8-40); MCH 35.5 pg (25.7-33.7); MEAN CELL VOLUME 101.6 fl (80-96); MEAN PLT VOLUME 9.6 fl (7.5-11.1); MONO % 18.8 % (3.8-10.2); NEUT % 46.7 % (42.8-82.8); RBC 3.94 M/mm3 (4.00-5.60); RDW 15.6 % (11.9-15.9); WHITE BLOOD COUNT 2.5 K/mm3 (4.0-10.0)
[2023-03-06 11:51] LABS: INR 2.14 (0.83-1.09); PROTHROMBIN TIME (PATIENT) 24.6 SEC (9.7-13.0)
[2023-03-06 11:52] LABS: ACTIVATED PTT 35.2 SECONDS (25.2-36.5)
[2023-03-06 11:58] LABS: PLATELET COUNT 35 10^3/uL (134-434); POTASSIUM 3.2 mmol/L (3.5-5.1)
[2023-03-06 12:27] LABS: CALCIUM 8.9 mg/dL (8.5-10.1)
[2023-03-06 12:28] LABS: ALBUMIN 2.3 g/dl (3.4-5.0); BLOOD UREA NITROGEN 14.7 mg/dL (7-18); MAGNESIUM 1.6 mg/dL (1.8-2.4)
[2023-03-06 12:29] LABS: BILIRUBIN,TOTAL 3.4 mg/dL (0.2-1); TOT PROT 7.5 g/dl (6.4-8.2)
[2023-03-06 12:31] LABS: PHOSPHOROUS 2.9 mg/dL (2.5-4.9)
[2023-03-06] MEDS ORDERED: PHYTONADIONE 10 MG/1 ML AMP IVPB ONE (16:35)
[2023-03-07] MEDS: RIFAXIMIN 550 MG TABLET PO SCH ×3 (01:03→21:54)
[2023-03-07] MEDS: LORazepam 1 MG TABLET PO SCH ×5 (01:03→22:49)
[2023-03-07] MEDS: LACTULOSE 20 GM/30 ML UDC (FOR ORAL USE ONLY) PO SCH ×3 (01:04→21:54)
[2023-03-07] MEDS: CEFTRIAXONE 1 GM in DEXTROSE 5%-WATER - 50 ML IVPB SCH (13:05)
[2023-03-07] MEDS: THIAMINE HCL 100 MG TABLET (FP) PO SCH (13:31)
[2023-03-07] MEDS: SPIRONOLACTONE 25 MG TABLET PO SCH (13:31)
[2023-03-07] MEDS: FOLIC ACID 1 MG TABLET (FP) PO SCH (13:31)
[2023-03-07] MEDS: PANTOPRAZOLE 40 MG TABLET PO SCH (13:31)
[2023-03-07] MEDS ORDERED: PrednisoLONE 15 MG/5 ML UNIT-DOSE CUP PO SCH (13:45)
[2023-03-07] MEDS: LIDOCAINE 5% TOPICAL PATCH TP SCH (15:01)
[2023-03-07] MEDS ORDERED: POTASSIUM CHLORIDE ORAL LIQUID 20 MEQ/15 ML PO ONE (15:07)
[2023-03-07 15:30] LABS: HEMOGLOBIN 14.2 GM/dL (11.7-16.9); MCH 34.6 pg (25.7-33.7); MCHC 33.9 g/dl (32.0-35.9); MEAN CELL VOLUME 102.3 fl (80-96); MEAN PLT VOLUME 9.1 fl (7.5-11.1); RDW 16.1 % (11.9-15.9); WHITE BLOOD COUNT 3.3 K/mm3 (4.0-10.0)
[2023-03-07 15:36] LABS: INR 2.1 (0.83-1.09); PROTHROMBIN TIME (PATIENT) 24.2 SEC (9.7-13.0)
[2023-03-07 15:52] LABS: ANISOCYTOSIS 1+; MACROCYTOSIS 1+
[2023-03-07 15:54] LABS: PLATELET COUNT 28 10^3/uL (134-434)
[2023-03-07 15:56] LABS: POTASSIUM 3.9 mmol/L (3.5-5.1)
[2023-03-07 15:58] LABS: CALCIUM 8.5 mg/dL (8.5-10.1)
[2023-03-07 15:59] LABS: ALBUMIN 2.4 g/dl (3.4-5.0); BLOOD UREA NITROGEN 11.4 mg/dL (7-18)
[2023-03-07 16:02] LABS: CREATININE 0.9 mg/dL (0.55-1.3)
[2023-03-07 16:04] LABS: BILIRUBIN,TOTAL 3.5 mg/dL (0.2-1); TOT PROT 7.9 g/dl (6.4-8.2)
[2023-03-07 16:52] LABS: HIV INTERPRETATION NEGATIVE (NEGATIVE)
[2023-03-07] MEDS: SACUBITRIL/VALSARTAN 24 MG-26 MG TABLET PO SCH (21:54)
[2023-03-07] MEDS: LIDOCAINE PATCH REMOVAL MC SCH (21:54)
[2023-03-07] MEDS: MELATONIN 5 MG TABLETS PO PRN (22:49)
[2023-03-08] MEDS ORDERED: LORazepam 0.5 MG TABLET PO PRN
[2023-03-08] MEDS: LORazepam 0.5 MG TABLET PO SCH ×3 (05:54→19:18)
[2023-03-08] MEDS: SPIRONOLACTONE 25 MG TABLET PO SCH (11:01)
[2023-03-08] MEDS: LACTULOSE 20 GM/30 ML UDC (FOR ORAL USE ONLY) PO SCH ×2 (11:02→21:15)
[2023-03-08] MEDS: FOLIC ACID 1 MG TABLET (FP) PO SCH (11:04)
[2023-03-08] MEDS: THIAMINE HCL 100 MG TABLET (FP) PO SCH (11:04)
[2023-03-08] MEDS: PANTOPRAZOLE 40 MG TABLET PO SCH (11:04)
[2023-03-08] MEDS: LIDOCAINE 5% TOPICAL PATCH TP SCH (11:04)
[2023-03-08] MEDS: RIFAXIMIN 550 MG TABLET PO SCH ×2 (11:05→21:15)
[2023-03-08] MEDS: SACUBITRIL/VALSARTAN 24 MG-26 MG TABLET PO SCH ×2 (11:09→21:17)
[2023-03-08] MEDS: THIAMINE HCL 200 MG/2 ML VIAL IVPB SCH (21:15)
[2023-03-08] MEDS: LIDOCAINE PATCH REMOVAL MC SCH (21:17)
[2023-03-09] MEDS: LORazepam 0.5 MG TABLET PO SCH (01:06)
[2023-03-09] MEDS ORDERED: LORazepam 0.5 MG TABLET PO ONE (05:00)
[2023-03-09] MEDS: THIAMINE HCL 200 MG/2 ML VIAL IVPB SCH ×3 (05:22→21:07)
[2023-03-09 09:29] LABS: HEMATOCRIT 41.7 % (35.4-49); HEMOGLOBIN 14.3 GM/dL (11.7-16.9); INR 2.24 (0.83-1.09); MCH 35.3 pg (25.7-33.7); MCHC 34.4 g/dl (32.0-35.9); MEAN CELL VOLUME 102.8 fl (80-96); MEAN PLT VOLUME 10.7 fl (7.5-11.1); PROTHROMBIN TIME (PATIENT) 25.8 SEC (9.7-13.0); RBC 4.06 M/mm3 (4.00-5.60); RDW 15.6 % (11.9-15.9); WHITE BLOOD COUNT 3.5 K/mm3 (4.0-10.0)
[2023-03-09 09:32] LABS: ACTIVATED PTT 34.9 SECONDS (25.2-36.5)
[2023-03-09 09:43] LABS: POTASSIUM 4.1 mmol/L (3.5-5.1)
[2023-03-09] MEDS: SACUBITRIL/VALSARTAN 24 MG-26 MG TABLET PO SCH ×2 (09:51→21:07)
[2023-03-09] MEDS: LIDOCAINE 5% TOPICAL PATCH TP SCH (09:51)
[2023-03-09] MEDS: FOLIC ACID 1 MG TABLET (FP) PO SCH (09:51)
[2023-03-09] MEDS: PANTOPRAZOLE 40 MG TABLET PO SCH (09:51)
[2023-03-09] MEDS: SPIRONOLACTONE 25 MG TABLET PO SCH (09:51)
[2023-03-09] MEDS: RIFAXIMIN 550 MG TABLET PO SCH ×2 (09:51→21:06)
[2023-03-09 09:57] LABS: BLOOD UREA NITROGEN 19.8 mg/dL (7-18); CALCIUM 8.6 mg/dL (8.5-10.1); MAGNESIUM 1.8 mg/dL (1.8-2.4)
[2023-03-09 10:00] LABS: CREATININE 1.2 mg/dL (0.55-1.3)
[2023-03-09 10:02] LABS: BILIRUBIN,TOTAL 4.6 mg/dL (0.2-1); TOT PROT 7.3 g/dl (6.4-8.2)
[2023-03-09 10:24] LABS: PLATELET COUNT 29 10^3/uL (134-434)
[2023-03-09] MEDS: PrednisoLONE 15 MG/5 ML UNIT-DOSE CUP PO SCH (12:31)
[2023-03-09] MEDS: LACTULOSE 20 GM/30 ML UDC (FOR ORAL USE ONLY) PO SCH ×2 (14:42→21:06)
[2023-03-09] MEDS: LIDOCAINE PATCH REMOVAL MC SCH (21:07)
[2023-03-10] MEDS: THIAMINE HCL 200 MG/2 ML VIAL IVPB SCH ×3 (05:14→21:47)
[2023-03-10] MEDS: LACTULOSE 20 GM/30 ML UDC (FOR ORAL USE ONLY) PO SCH ×3 (05:14→21:12)
[2023-03-10 06:57] LABS: EPI CELLS 6 /uL (0-25.1); HYALINE CASTS 0 /uL (0-3.1); PH,URINE 5.5 (5.0-8.0); URINE APPEARANCE CLEAR; URINE BACTERIA 1 /uL (0-1359); URINE BILIRUBIN 1+ (NEGATIVE); URINE COLOR DK YELLOW; URINE GLUCOSE (UA) NEGATIVE (NEGATIVE); URINE KETONE NEGATIVE (NEGATIVE); URINE LEUK ESTERASE NEGATIVE (NEGATIVE); URINE NITRITE NEGATIVE (NEGATIVE); URINE PROTEIN NEGATIVE (NEGATIVE); URINE RBC 18 /uL (0-23.9); URINE WBC 4 /uL (0-25.8)
[2023-03-10 09:54] LABS: INR 2.06 (0.83-1.09); PROTHROMBIN TIME (PATIENT) 23.7 SEC (9.7-13.0)
[2023-03-10 09:56] LABS: ACTIVATED PTT 34.2 SECONDS (25.2-36.5)
[2023-03-10 10:05] LABS: POTASSIUM 4.5 mmol/L (3.5-5.1)
[2023-03-10 10:08] LABS: CALCIUM 8.9 mg/dL (8.5-10.1)
[2023-03-10 10:09] LABS: ALBUMIN 2.1 g/dl (3.4-5.0); BLOOD UREA NITROGEN 17.5 mg/dL (7-18); MAGNESIUM 1.8 mg/dL (1.8-2.4)
[2023-03-10 10:10] LABS: PHOSPHOROUS 2.6 mg/dL (2.5-4.9)
[2023-03-10 10:12] LABS: CREATININE 1.2 mg/dL (0.55-1.3)
[2023-03-10 10:14] LABS: BILIRUBIN,TOTAL 3.5 mg/dL (0.2-1)
[2023-03-10] MEDS: PANTOPRAZOLE 40 MG TABLET PO SCH (10:19)
[2023-03-10] MEDS: FOLIC ACID 1 MG TABLET (FP) PO SCH (10:19)
[2023-03-10] MEDS: RIFAXIMIN 550 MG TABLET PO SCH ×2 (10:19→21:13)
[2023-03-10] MEDS: PrednisoLONE 15 MG/5 ML UNIT-DOSE CUP PO SCH (10:21)
[2023-03-10] MEDS: LIDOCAINE 5% TOPICAL PATCH TP SCH (10:21)
[2023-03-10] MEDS: SPIRONOLACTONE 25 MG TABLET PO SCH (10:53)
[2023-03-10 10:54] LABS: HEMATOCRIT 43.2 % (35.4-49); HEMOGLOBIN 14.8 GM/dL (11.7-16.9); MCH 35.1 pg (25.7-33.7); MCHC 34.3 g/dl (32.0-35.9); MEAN CELL VOLUME 102.4 fl (80-96); MEAN PLT VOLUME 9.8 fl (7.5-11.1); RBC 4.21 M/mm3 (4.00-5.60); RDW 15.5 % (11.9-15.9); WHITE BLOOD COUNT 5.6 K/mm3 (4.0-10.0)
[2023-03-10 10:57] LABS: PLATELET COUNT 30 10^3/uL (134-434)
[2023-03-10] MEDS: SACUBITRIL/VALSARTAN 24 MG-26 MG TABLET PO SCH ×2 (11:25→21:18)
[2023-03-10] MEDS ORDERED: THIAMINE HCL 200 MG/2 ML VIAL IVPB SCH (21:00)
[2023-03-10] MEDS ORDERED: diphenhydrAMINE HCL 25 MG CAPSULE (FP) PO ONE (21:10)
[2023-03-10] MEDS: MELATONIN 5 MG TABLETS PO PRN (21:12)
[2023-03-10] MEDS: LIDOCAINE PATCH REMOVAL MC SCH (22:09)
[2023-03-11] MEDS: LACTULOSE 20 GM/30 ML UDC (FOR ORAL USE ONLY) PO SCH ×3 (06:09→21:40)
[2023-03-11] MEDS: PrednisoLONE 15 MG/5 ML UNIT-DOSE CUP PO SCH (09:27)
[2023-03-11] MEDS: PANTOPRAZOLE 40 MG TABLET PO SCH (09:27)
[2023-03-11] MEDS: RIFAXIMIN 550 MG TABLET PO SCH ×2 (09:27→21:40)
[2023-03-11] MEDS: FOLIC ACID 1 MG TABLET (FP) PO SCH (09:27)
[2023-03-11] MEDS: SPIRONOLACTONE 25 MG TABLET PO SCH (09:27)
[2023-03-11] MEDS: LIDOCAINE 5% TOPICAL PATCH TP SCH (09:27)
[2023-03-11] MEDS: SACUBITRIL/VALSARTAN 24 MG-26 MG TABLET PO SCH ×2 (09:27→22:53)
[2023-03-11 10:22] LABS: INR 1.99 (0.83-1.09); PROTHROMBIN TIME (PATIENT) 22.9 SEC (9.7-13.0)
[2023-03-11 10:25] LABS: ACTIVATED PTT 32.6 SECONDS (25.2-36.5)
[2023-03-11 10:36] LABS: POTASSIUM 4.4 mmol/L (3.5-5.1)
[2023-03-11 10:38] LABS: ALBUMIN 2.1 g/dl (3.4-5.0); CALCIUM 9.1 mg/dL (8.5-10.1); MAGNESIUM 1.8 mg/dL (1.8-2.4)
[2023-03-11 10:39] LABS: BLOOD UREA NITROGEN 16.6 mg/dL (7-18)
[2023-03-11 10:41] LABS: PHOSPHOROUS 2.6 mg/dL (2.5-4.9)
[2023-03-11 10:42] LABS: CREATININE 1.1 mg/dL (0.55-1.3)
[2023-03-11 10:43] LABS: BILIRUBIN,TOTAL 2.8 mg/dL (0.2-1); TOT PROT 7.7 g/dl (6.4-8.2)
[2023-03-11 10:44] LABS: HEMATOCRIT 43.1 % (35.4-49); HEMOGLOBIN 14.9 GM/dL (11.7-16.9); MCH 35.3 pg (25.7-33.7); MCHC 34.5 g/dl (32.0-35.9); MEAN CELL VOLUME 102.5 fl (80-96); MEAN PLT VOLUME 10.1 fl (7.5-11.1); PLATELET COUNT 39 10^3/uL (134-434); RBC 4.21 M/mm3 (4.00-5.60); RDW 15.8 % (11.9-15.9); WHITE BLOOD COUNT 5.4 K/mm3 (4.0-10.0)
[2023-03-11] MEDS: MELATONIN 5 MG TABLETS PO PRN (21:40)
[2023-03-11] MEDS: THIAMINE HCL 200 MG/2 ML VIAL IVPB SCH (21:40)
[2023-03-11] MEDS: LIDOCAINE PATCH REMOVAL MC SCH (22:01)
[2023-03-12] MEDS: LACTULOSE 20 GM/30 ML UDC (FOR ORAL USE ONLY) PO SCH ×3 (05:59→22:59)
[2023-03-12] MEDS: RIFAXIMIN 550 MG TABLET PO SCH ×2 (09:05→22:59)
[2023-03-12] MEDS: LIDOCAINE 5% TOPICAL PATCH TP SCH (09:05)
[2023-03-12] MEDS: SACUBITRIL/VALSARTAN 24 MG-26 MG TABLET PO SCH ×2 (09:05→23:12)
[2023-03-12] MEDS: SPIRONOLACTONE 25 MG TABLET PO SCH (09:05)
[2023-03-12] MEDS: FOLIC ACID 1 MG TABLET (FP) PO SCH (09:05)
[2023-03-12] MEDS: PrednisoLONE 15 MG/5 ML UNIT-DOSE CUP PO SCH (09:05)
[2023-03-12] MEDS: PANTOPRAZOLE 40 MG TABLET PO SCH (09:05)
[2023-03-12 11:19] LABS: HEMATOCRIT 43.8 % (35.4-49); MCH 35.1 pg (25.7-33.7); MCHC 34.3 g/dl (32.0-35.9); MEAN CELL VOLUME 102.3 fl (80-96); MEAN PLT VOLUME 9.7 fl (7.5-11.1); RBC 4.29 M/mm3 (4.00-5.60); RDW 15.6 % (11.9-15.9); WHITE BLOOD COUNT 4.8 K/mm3 (4.0-10.0)
[2023-03-12 11:23] LABS: INR 2.07 (0.83-1.09); PROTHROMBIN TIME (PATIENT) 23.8 SEC (9.7-13.0)
[2023-03-12 11:41] LABS: POTASSIUM 4.2 mmol/L (3.5-5.1)
[2023-03-12 11:49] LABS: ALBUMIN 2.1 g/dl (3.4-5.0); CALCIUM 9.3 mg/dL (8.5-10.1); MAGNESIUM 1.7 mg/dL (1.8-2.4)
[2023-03-12 11:50] LABS: BLOOD UREA NITROGEN 16.4 mg/dL (7-18)
[2023-03-12 11:52] LABS: CREATININE 1.1 mg/dL (0.55-1.3); PHOSPHOROUS 2.6 mg/dL (2.5-4.9)
[2023-03-12 11:54] LABS: BILIRUBIN,TOTAL 3.1 mg/dL (0.2-1); TOT PROT 7.6 g/dl (6.4-8.2)
[2023-03-12] MEDS: THIAMINE HCL 200 MG/2 ML VIAL IVPB SCH (22:59)
[2023-03-12] MEDS: LIDOCAINE PATCH REMOVAL MC SCH (23:11)
[2023-03-13] MEDS: MELATONIN 5 MG TABLETS PO PRN ×2 (01:05→21:40)
[2023-03-13] MEDS: LACTULOSE 20 GM/30 ML UDC (FOR ORAL USE ONLY) PO SCH ×3 (06:29→21:40)
[2023-03-13] MEDS: FOLIC ACID 1 MG TABLET (FP) PO SCH (09:59)
[2023-03-13] MEDS: PANTOPRAZOLE 40 MG TABLET PO SCH (09:59)
[2023-03-13] MEDS: RIFAXIMIN 550 MG TABLET PO SCH ×2 (10:00→21:40)
[2023-03-13] MEDS: SPIRONOLACTONE 25 MG TABLET PO SCH (10:00)
[2023-03-13] MEDS: LIDOCAINE 5% TOPICAL PATCH TP SCH (10:00)
[2023-03-13] MEDS: SACUBITRIL/VALSARTAN 24 MG-26 MG TABLET PO SCH ×2 (10:00→21:40)
[2023-03-13] MEDS: PrednisoLONE 15 MG/5 ML UNIT-DOSE CUP PO SCH (10:00)
[2023-03-13 11:44] LABS: BASO % 0.4 % (0-2.0); EOS % 0.3 % (0-4.5); HEMATOCRIT 44.4 % (35.4-49); HEMOGLOBIN 14.8 GM/dL (11.7-16.9); LYMPH % 17.7 % (8-40); MCH 34.4 pg (25.7-33.7); MCHC 33.4 g/dl (32.0-35.9); MEAN PLT VOLUME 9.8 fl (7.5-11.1); MONO % 15.9 % (3.8-10.2); NEUT % 65.7 % (42.8-82.8); PLATELET COUNT 43 10^3/uL (134-434); RBC 4.31 M/mm3 (4.00-5.60); RDW 15.6 % (11.9-15.9); WHITE BLOOD COUNT 6.7 K/mm3 (4.0-10.0)
[2023-03-13 12:01] LABS: INR 1.96 (0.83-1.09); PROTHROMBIN TIME (PATIENT) 22.6 SEC (9.7-13.0)
[2023-03-13 12:07] LABS: POTASSIUM 4.7 mmol/L (3.5-5.1)
[2023-03-13 12:30] LABS: MAGNESIUM 1.8 mg/dL (1.8-2.4)
[2023-03-13 12:31] LABS: ALBUMIN 2.2 g/dl (3.4-5.0); CALCIUM 9.6 mg/dL (8.5-10.1)
[2023-03-13 12:32] LABS: BLOOD UREA NITROGEN 18.5 mg/dL (7-18)
[2023-03-13 12:33] LABS: BILIRUBIN,DIRECT 1.4 mg/dL (0.0-0.2); CREATININE 1.1 mg/dL (0.55-1.3)
[2023-03-13 12:35] LABS: PHOSPHOROUS 2.8 mg/dL (2.5-4.9); TOT PROT 7.6 g/dl (6.4-8.2)
[2023-03-13] MEDS ORDERED: THIAMINE HCL 100 MG TABLET (FP) PO ONE (19:49)
[2023-03-13] MEDS: THIAMINE HCL 200 MG/2 ML VIAL IVPB SCH (20:53)
[2023-03-13] MEDS: LIDOCAINE PATCH REMOVAL MC SCH (22:10)
[2023-03-14] MEDS: LACTULOSE 20 GM/30 ML UDC (FOR ORAL USE ONLY) PO SCH ×3 (06:10→21:58)
[2023-03-14 10:23] LABS: BASO % 0.2 % (0-2.0); EOS % 0.2 % (0-4.5); HEMATOCRIT 46.6 % (35.4-49); HEMOGLOBIN 15.9 GM/dL (11.7-16.9); LYMPH % 17.6 % (8-40); MCH 35.1 pg (25.7-33.7); MCHC 34.1 g/dl (32.0-35.9); MEAN CELL VOLUME 102.8 fl (80-96); MEAN PLT VOLUME 9.7 fl (7.5-11.1); MONO % 16.1 % (3.8-10.2); NEUT % 65.9 % (42.8-82.8); PLATELET COUNT 45 10^3/uL (134-434); RBC 4.53 M/mm3 (4.00-5.60); RDW 15.7 % (11.9-15.9); WHITE BLOOD COUNT 6.1 K/mm3 (4.0-10.0)
[2023-03-14] MEDS: LIDOCAINE 5% TOPICAL PATCH TP SCH (10:32)
[2023-03-14] MEDS: SPIRONOLACTONE 25 MG TABLET PO SCH (10:32)
[2023-03-14] MEDS: SACUBITRIL/VALSARTAN 24 MG-26 MG TABLET PO SCH ×2 (10:32→22:47)
[2023-03-14] MEDS: RIFAXIMIN 550 MG TABLET PO SCH ×2 (10:32→21:58)
[2023-03-14] MEDS: FOLIC ACID 1 MG TABLET (FP) PO SCH (10:32)
[2023-03-14] MEDS: PANTOPRAZOLE 40 MG TABLET PO SCH (10:32)
[2023-03-14] MEDS: PrednisoLONE 15 MG/5 ML UNIT-DOSE CUP PO SCH (10:35)
[2023-03-14 10:43] LABS: BLOOD UREA NITROGEN 18.7 mg/dL (7-18); CALCIUM 9.8 mg/dL (8.5-10.1)
[2023-03-14 10:44] LABS: ALBUMIN 2.3 g/dl (3.4-5.0)
[2023-03-14 10:47] LABS: CREATININE 1.1 mg/dL (0.55-1.3)
[2023-03-14 10:48] LABS: INR 1.94 (0.83-1.09); PROTHROMBIN TIME (PATIENT) 22.4 SEC (9.7-13.0)
[2023-03-14 10:48] LABS: BILIRUBIN,TOTAL 3.3 mg/dL (0.2-1); TOT PROT 7.9 g/dl (6.4-8.2)
[2023-03-14 11:10] LABS: BILIRUBIN,DIRECT 1.5 mg/dL (0.0-0.2)
[2023-03-14] MEDS ORDERED: SODIUM CHLORIDE 1,000 ML IV SCH (11:15)
[2023-03-14] MEDS: SODIUM CHLORIDE 1,000 ML IV SCH (13:18)
[2023-03-14 18:16] VITALS: RESP 18
[2023-03-14] MEDS ORDERED: diphenhydrAMINE HCL 25 MG CAPSULE (FP) PO ONE (21:43)
[2023-03-14] MEDS: MELATONIN 5 MG TABLETS PO PRN (21:57)
[2023-03-14] MEDS: LIDOCAINE PATCH REMOVAL MC SCH (22:01)
[2023-03-15] MEDS: LACTULOSE 20 GM/30 ML UDC (FOR ORAL USE ONLY) PO SCH ×2 (05:25→13:53)
[2023-03-15] MEDS: LIDOCAINE 5% TOPICAL PATCH TP SCH (09:35)
[2023-03-15] MEDS: SPIRONOLACTONE 25 MG TABLET PO SCH (09:36)
[2023-03-15] MEDS: SACUBITRIL/VALSARTAN 24 MG-26 MG TABLET PO SCH (09:36)
[2023-03-15] MEDS: RIFAXIMIN 550 MG TABLET PO SCH (09:36)
[2023-03-15] MEDS: FOLIC ACID 1 MG TABLET (FP) PO SCH (09:36)
[2023-03-15] MEDS: PANTOPRAZOLE 40 MG TABLET PO SCH (09:36)
[2023-03-15] MEDS: PrednisoLONE 15 MG/5 ML UNIT-DOSE CUP PO SCH (09:36)
[2023-03-15 13:05] LABS: HEMATOCRIT 43.5 % (35.4-49); HEMOGLOBIN 14.5 GM/dL (11.7-16.9); MCH 34.4 pg (25.7-33.7); MCHC 33.4 g/dl (32.0-35.9); MEAN CELL VOLUME 102.8 fl (80-96); MEAN PLT VOLUME 9.2 fl (7.5-11.1); PLATELET COUNT 47 10^3/uL (134-434); RBC 4.23 M/mm3 (4.00-5.60); RDW 15.9 % (11.9-15.9); WHITE BLOOD COUNT 5.8 K/mm3 (4.0-10.0)
[2023-03-15 13:13] LABS: INR 1.95 (0.83-1.09); PROTHROMBIN TIME (PATIENT) 22.5 SEC (9.7-13.0)
[2023-03-15 13:30] LABS: CALCIUM 8.9 mg/dL (8.5-10.1); POTASSIUM 4.2 mmol/L (3.5-5.1)
[2023-03-15 13:31] LABS: ALBUMIN 2.1 g/dl (3.4-5.0); BLOOD UREA NITROGEN 19.8 mg/dL (7-18)
[2023-03-15 13:34] LABS: ANISOCYTOSIS 1+; CREATININE 1.2 mg/dL (0.55-1.3); MACROCYTOSIS 1+
[2023-03-15 13:37] LABS: TOT PROT 7.1 g/dl (6.4-8.2)
[2023-03-15] MEDS: SODIUM CHLORIDE 1,000 ML IV SCH (13:57)
[2023-03-15 15:20] VITALS: BP 110/62; PULSE 74; TEMP 94.7
== END 2023-03-15 18:56 | disposition home or self-care (01) | DRG 433 ==
LOC: JER 12:41 → JERBED 17:20 → J5S 21:42
PROVIDERS: ADMIT Internal Medicine
DX: K70.30 Alcoholic cirrhosis of liver without ascites (principal); D61.818 Other pancytopenia; D68.9 Coagulation defect, unspecified; F10.231 Alcohol dependence with withdrawal delirium; K92.2 Gastrointestinal hemorrhage, unspecified; I24.8 Other forms of acute ischemic heart disease; N39.0 Urinary tract infection, site not specified; I50.32 Chronic diastolic (congestive) heart failure; K76.6 Portal hypertension; I42.8 Other cardiomyopathies; D64.9 Anemia, unspecified; R41.82 Altered mental status, unspecified; I48.0 Paroxysmal atrial fibrillation; R26.81 Unsteadiness on feet; D69.6 Thrombocytopenia, unspecified; R29.6 Repeated falls; K76.82 Hepatic encephalopathy; M25.511 Pain in right shoulder; M25.531 Pain in right wrist; I11.0 Hypertensive heart disease with heart failure; E78.5 Hyperlipidemia, unspecified; Z95.0 Presence of cardiac pacemaker; Z95.2 Presence of prosthetic heart valve; Z91.148 Patient's other noncompliance with medication regimen for other reason
CPT/HCPCS: 0241U-QW; 36415; 36430; 70450-TC; 71045-TC-FY; 73030-TC-RT-FY; 73110-TC-RT-FY; 73130-TC-RT-FY; 73562-TC-LT-FY; 73562-TC-RT-FY; 73610-TC-LT-FY; 73610-TC-RT-FY; 73630-TC-LT; 73630-TC-RT-FY; 74178-TC; 76700-TC; 80053; 81003; 82105; 82140; 82150; 82248; 82272; 82550; 82553; 82607; 82746; 82962; 83690; 83735; 83880; 84100; 84484; 85025; 85027; 85045; 85610; 85730; 86140; 86480; 86704; 86708; 86803; 86850; 86900; 86901; 87086; 87340; 87389; 87517; 87799; 93005; 93010; 93306-TC; 97116-GP; 97162-GP; 99285-25; P9034; Q9967

== ENCOUNTER 2023-03-31 12:32 | Inpatient (IN) | payer OTHER ==
[2023-03-31] MEDS ORDERED: LIDOCAINE HCL 2% JELLY 10 ML CARTRIDGE PR ONE (13:19)
[2023-03-31] MEDS ORDERED: LIDOCAINE HCL 2% JELLY 10 ML CARTRIDGE ONE (13:38)
[2023-03-31 14:41] LABS: VENOUS BASE EXCESS -0.9 mmol/L (-2-2); VENOUS O2 SATURATION 17.9 % (70-80); VENOUS PH 7.34 (7.310-7.410)
[2023-03-31 14:43] LABS: EPI CELLS 13 /uL (0-25.1); HYALINE CASTS 4 /uL (0-3.1); PH,URINE 5.5 (5.0-8.0); URINE APPEARANCE CLEAR; URINE BACTERIA 12 /uL (0-1359); URINE BILIRUBIN 1+ (NEGATIVE); URINE COLOR DK YELLOW; URINE GLUCOSE (UA) NEGATIVE (NEGATIVE); URINE KETONE NEGATIVE (NEGATIVE); URINE LEUK ESTERASE TRACE (NEGATIVE); URINE NITRITE NEGATIVE (NEGATIVE); URINE PROTEIN NEGATIVE (NEGATIVE); URINE RBC 21 /uL (0-23.9); URINE WBC 17 /uL (0-25.8)
[2023-03-31 14:44] LABS: BASO % 0.3 % (0-2.0); EOS % 0.4 % (0-4.5); HEMATOCRIT 37.9 % (35.4-49); HEMOGLOBIN 12.8 GM/dL (11.7-16.9); MCH 34.4 pg (25.7-33.7); MCHC 33.8 g/dl (32.0-35.9); MEAN PLT VOLUME 9.2 fl (7.5-11.1); MONO % 13.2 % (3.8-10.2); NEUT % 70.1 % (42.8-82.8); RBC 3.72 M/mm3 (4.00-5.60); WHITE BLOOD COUNT 4.7 K/mm3 (4.0-10.0)
[2023-03-31 14:46] LABS: INR 1.52 (0.83-1.09); PROTHROMBIN TIME (PATIENT) 17.6 SEC (9.7-13.0)
[2023-03-31 14:50] LABS: ACTIVATED PTT 32.7 SECONDS (25.2-36.5)
[2023-03-31 15:00] LABS: POTASSIUM 5.6 mmol/L (3.5-5.1)
[2023-03-31 15:02] LABS: ALBUMIN 1.9 g/dl (3.4-5.0); BLOOD UREA NITROGEN 33.5 mg/dL (7-18); CALCIUM 8.3 mg/dL (8.5-10.1)
[2023-03-31 15:05] LABS: CREATININE 1.7 mg/dL (0.55-1.3)
[2023-03-31 15:07] LABS: BILIRUBIN,TOTAL 3.4 mg/dL (0.2-1)
[2023-03-31 15:12] LABS: LACTIC ACID 2.2 mmol/L (0.4-2.0)
[2023-03-31] MEDS ORDERED: CALCIUM GLUCONATE 10% - 1,000 MG/10 ML VIAL IVPB ONE (15:14)
[2023-03-31] MEDS ORDERED: SODIUM ZIRCONIUM CYCLOSILICATE (LOKELMA) 5 GM PACKET PO ONE (15:22)
[2023-03-31 15:23] LABS: PLATELET COUNT 23 10^3/uL (134-434)
[2023-03-31] MEDS ORDERED: morphine CARPU-JECT 2 MG/1 ML DISP.SYRIN IVPUSH ONE (15:29)
[2023-03-31] MEDS ORDERED: SODIUM CHLORIDE 0.9% 500 ML INFUS.BAG IV ONE (17:41)
[2023-03-31] MEDS ORDERED: SODIUM ZIRCONIUM CYCLOSILICATE (LOKELMA) 5 GM PACKET ONE (18:13)
[2023-03-31] MEDS ORDERED: CALCIUM GLUCONATE 10% - 1,000 MG/10 ML VIAL ONE (18:13)
[2023-03-31] MEDS ORDERED: CEFTRIAXONE 1 GM in DEXTROSE 5%-WATER - 50 ML IVPB ONE (20:23)
[2023-03-31 20:50] LABS: BILIRUBIN,DIRECT 2.2 mg/dL (0.0-0.2)
[2023-03-31] MEDS ORDERED: SODIUM CHLORIDE 1,000 ML IV SCH (21:00)
[2023-03-31] MEDS ORDERED: LORazepam 2 MG/ML SDV VIAL IVPUSH PRN (21:27)
[2023-03-31] MEDS ORDERED: SODIUM CHLORIDE 1,000 ML IV STA (21:51)
[2023-03-31] MEDS ORDERED: cefTRIAXone SODIUM 1 GM VIAL ONE (21:58)
[2023-04-01] MEDS ORDERED: LACTULOSE 20 GM/30 ML UDC (FOR ORAL USE ONLY) ONE (01:11)
[2023-04-01] MEDS: LACTULOSE 20 GM/30 ML UDC (FOR ORAL USE ONLY) PO SCH ×2 (01:12→06:29)
[2023-04-01 02:02] LABS: POTASSIUM 4.9 mmol/L (3.5-5.1)
[2023-04-01 02:04] LABS: CALCIUM 7.4 mg/dL (8.5-10.1)
[2023-04-01 02:05] LABS: ALBUMIN 1.8 g/dl (3.4-5.0); BLOOD UREA NITROGEN 28.5 mg/dL (7-18); MAGNESIUM 1.4 mg/dL (1.8-2.4)
[2023-04-01 02:08] LABS: CREATININE 1.4 mg/dL (0.55-1.3); PHOSPHOROUS 3.2 mg/dL (2.5-4.9)
[2023-04-01 02:10] LABS: TOT PROT 5.5 g/dl (6.4-8.2)
[2023-04-01 03:19] VITALS: BMI 30.9
[2023-04-01] MEDS ORDERED: MAGNESIUM SULF 50% (8.12 MEQ/2 ML-1 GM VIAL) IVPB ONE ×2 (04:00→09:03)
[2023-04-01 08:28] LABS: INR 1.49 (0.83-1.09); PROTHROMBIN TIME (PATIENT) 17.2 SEC (9.7-13.0)
[2023-04-01 08:30] LABS: HEMATOCRIT 33.1 % (35.4-49); HEMOGLOBIN 11.6 GM/dL (11.7-16.9); MCH 35.3 pg (25.7-33.7); MEAN CELL VOLUME 100.9 fl (80-96); MEAN PLT VOLUME 10.6 fl (7.5-11.1); RBC 3.28 M/mm3 (4.00-5.60); RDW 15.7 % (11.9-15.9)
[2023-04-01 08:31] LABS: WHITE BLOOD COUNT 6.1 K/mm3 (4.0-10.0)
[2023-04-01 09:21] LABS: PLATELET COUNT 24 10^3/uL (134-434)
[2023-04-01] MEDS ORDERED: prednisoLONE SODIUM PHOSPHATE 15 MG/5 ML ORAL SOLN BOTTLE PO SCH (10:00)
[2023-04-01] MEDS ORDERED: SPIRONOLACTONE 25 MG TABLET PO SCH (10:00)
[2023-04-01] MEDS: THIAMINE HCL 100 MG TABLET (FP) PO SCH (10:25)
[2023-04-01] MEDS: FOLIC ACID 1 MG TABLET (FP) PO SCH (10:25)
[2023-04-01] MEDS: PANTOPRAZOLE 40 MG TABLET PO SCH (10:26)
[2023-04-01] MEDS: MULTIVITAMINS (DAILY MVI) TABLET (FP) PO SCH (10:26)
[2023-04-01] MEDS: RIFAXIMIN 550 MG TABLET PO SCH ×3 (10:27→23:17)
[2023-04-01] MEDS: metoPROLOL SUCCINATE 25 MG TAB.SR.24H (FP) PO SCH (11:45)
[2023-04-02 07:31] LABS: INR 1.5 (0.83-1.09); PROTHROMBIN TIME (PATIENT) 17.3 SEC (9.7-13.0)
[2023-04-02 07:33] LABS: POTASSIUM 4.7 mmol/L (3.5-5.1)
[2023-04-02 07:36] LABS: CALCIUM 7.7 mg/dL (8.5-10.1)
[2023-04-02 07:37] LABS: ALBUMIN 1.7 g/dl (3.4-5.0); BLOOD UREA NITROGEN 27.7 mg/dL (7-18)
[2023-04-02 07:39] LABS: CREATININE 1.3 mg/dL (0.55-1.3)
[2023-04-02 07:41] LABS: BILIRUBIN,TOTAL 2.3 mg/dL (0.2-1); TOT PROT 5.3 g/dl (6.4-8.2)
[2023-04-02 08:16] LABS: BASO % 0.4 % (0-2.0); EOS % 1.4 % (0-4.5); HEMATOCRIT 30.9 % (35.4-49); HEMOGLOBIN 10.9 GM/dL (11.7-16.9); MCH 35.5 pg (25.7-33.7); MCHC 35.5 g/dl (32.0-35.9); MEAN PLT VOLUME 9.8 fl (7.5-11.1); MONO % 16.3 % (3.8-10.2); NEUT % 59.9 % (42.8-82.8); RBC 3.09 M/mm3 (4.00-5.60); RDW 15.1 % (11.9-15.9); WHITE BLOOD COUNT 3.7 K/mm3 (4.0-10.0)
[2023-04-02 08:37] LABS: PLATELET COUNT 22 10^3/uL (134-434)
[2023-04-02 09:08] LABS: MAGNESIUM 1.8 mg/dL (1.8-2.4)
[2023-04-02] MEDS: PANTOPRAZOLE 40 MG TABLET PO SCH (09:11)
[2023-04-02] MEDS: THIAMINE HCL 100 MG TABLET (FP) PO SCH (09:11)
[2023-04-02] MEDS: MULTIVITAMINS (DAILY MVI) TABLET (FP) PO SCH (09:11)
[2023-04-02] MEDS: metoPROLOL SUCCINATE 25 MG TAB.SR.24H (FP) PO SCH (09:12)
[2023-04-02] MEDS: FOLIC ACID 1 MG TABLET (FP) PO SCH (09:16)
[2023-04-02] MEDS: prednisoLONE SODIUM PHOSPHATE 15 MG/5 ML ORAL SOLN BOTTLE PO SCH (09:17)
[2023-04-02] MEDS: RIFAXIMIN 550 MG TABLET PO SCH ×2 (09:29→21:20)
[2023-04-02] MEDS ORDERED: MAGNESIUM 2GM/50ML STERILE WATER IVPB IVPB ONE (09:30)
[2023-04-02] MEDS ORDERED: SPIRONOLACTONE 25 MG TABLET PO SCH (09:31)
[2023-04-02] MEDS: SACUBITRIL/VALSARTAN 24 MG-26 MG TABLET PO SCH ×2 (09:49→21:19)
[2023-04-02] MEDS: SPIRONOLACTONE 25 MG TABLET PO SCH (09:49)
[2023-04-02] MEDS ORDERED: SACUBITRIL/VALSARTAN 24 MG-26 MG TABLET PO SCH (10:00)
[2023-04-02] MEDS ORDERED: predniSONE 20 MG TABLET (UD) PO SCH (10:00)
[2023-04-03] MEDS ORDERED: diphenhydrAMINE HCL 25 MG CAPSULE (FP) PO ONE (00:15)
[2023-04-03] MEDS: MINERAL OIL/PET HY-PHL TOPICAL OINTMENT 454 GM JAR TP SCH ×3 (05:58→22:06)
[2023-04-03] MEDS ORDERED: DOCUSATE SODIUM 100 MG CAPSULE (FP) PO PRN ×2 (05:59→14:52)
[2023-04-03 08:04] LABS: HEMATOCRIT 34.5 % (35.4-49); HEMOGLOBIN 11.6 GM/dL (11.7-16.9); MCH 34.1 pg (25.7-33.7); MCHC 33.6 g/dl (32.0-35.9); MEAN CELL VOLUME 101.6 fl (80-96); MEAN PLT VOLUME 9.9 fl (7.5-11.1); RDW 15.8 % (11.9-15.9); WHITE BLOOD COUNT 3.6 K/mm3 (4.0-10.0)
[2023-04-03 08:13] LABS: PLATELET COUNT 30 10^3/uL (134-434)
[2023-04-03 08:18] LABS: BILIRUBIN,DIRECT 1.5 mg/dL (0.0-0.2)
[2023-04-03 08:22] LABS: BILIRUBIN,TOTAL 2.5 mg/dL (0.2-1)
[2023-04-03 08:52] LABS: INR 1.44 (0.83-1.09); PROTHROMBIN TIME (PATIENT) 16.6 SEC (9.7-13.0)
[2023-04-03] MEDS: RIFAXIMIN 550 MG TABLET PO SCH ×2 (10:26→22:06)
[2023-04-03] MEDS: prednisoLONE SODIUM PHOSPHATE 15 MG/5 ML ORAL SOLN BOTTLE PO SCH (10:26)
[2023-04-03] MEDS: FOLIC ACID 1 MG TABLET (FP) PO SCH (10:27)
[2023-04-03] MEDS: THIAMINE HCL 100 MG TABLET (FP) PO SCH (10:27)
[2023-04-03] MEDS: SACUBITRIL/VALSARTAN 24 MG-26 MG TABLET PO SCH ×2 (10:27→22:08)
[2023-04-03] MEDS: metoPROLOL SUCCINATE 25 MG TAB.SR.24H (FP) PO SCH (10:27)
[2023-04-03] MEDS: SPIRONOLACTONE 25 MG TABLET PO SCH (10:28)
[2023-04-03] MEDS: PANTOPRAZOLE 40 MG TABLET PO SCH (10:28)
[2023-04-03] MEDS: MULTIVITAMINS (DAILY MVI) TABLET (FP) PO SCH (10:28)
[2023-04-03 11:12] LABS: POTASSIUM 4.7 mmol/L (3.5-5.1)
[2023-04-03 11:17] LABS: BLOOD UREA NITROGEN 23.9 mg/dL (7-18); MAGNESIUM 1.8 mg/dL (1.8-2.4)
[2023-04-03 11:21] LABS: CREATININE 1.2 mg/dL (0.55-1.3); PHOSPHOROUS 2.5 mg/dL (2.5-4.9)
[2023-04-03] MEDS ORDERED: NAPH,MB-DB/K PH,MBDB POWDER PACKET PO ONE (11:54)
[2023-04-03] MEDS ORDERED: MAGNESIUM SULF 50% (8.12 MEQ/2 ML-1 GM VIAL) IVPB ONE (11:54)
[2023-04-03] MEDS ORDERED: LORazepam 2 MG/ML SDV VIAL IVPUSH PRN (14:52)
[2023-04-03] MEDS ORDERED: SENNOSIDES 8.8 MG/5 ML SYRUP PO SCH (22:00)
[2023-04-03] MEDS: LACTULOSE 20 GM/30 ML UDC (FOR ORAL USE ONLY) PO SCH (22:06)
[2023-04-03] MEDS: SENNOSIDES 8.8 MG/5 ML SYRUP PO SCH (22:38)
[2023-04-04 09:24] LABS: BASO % 0.5 % (0-2.0); EOS % 1.3 % (0-4.5); HEMATOCRIT 35.5 % (35.4-49); HEMOGLOBIN 12.4 GM/dL (11.7-16.9); LYMPH % 38.2 % (8-40); MCH 34.8 pg (25.7-33.7); MEAN CELL VOLUME 99.6 fl (80-96); MEAN PLT VOLUME 9.6 fl (7.5-11.1); MONO % 14.7 % (3.8-10.2); NEUT % 45.3 % (42.8-82.8); PLATELET COUNT 40 10^3/uL (134-434); RBC 3.57 M/mm3 (4.00-5.60); RDW 15.3 % (11.9-15.9); WHITE BLOOD COUNT 4.3 K/mm3 (4.0-10.0)
[2023-04-04 09:30] LABS: INR 1.52 (0.83-1.09); PROTHROMBIN TIME (PATIENT) 17.6 SEC (9.7-13.0)
[2023-04-04] MEDS: LACTULOSE 20 GM/30 ML UDC (FOR ORAL USE ONLY) PO SCH ×2 (09:39→21:42)
[2023-04-04] MEDS: prednisoLONE SODIUM PHOSPHATE 15 MG/5 ML ORAL SOLN BOTTLE PO SCH (09:39)
[2023-04-04] MEDS: SPIRONOLACTONE 25 MG TABLET PO SCH (09:40)
[2023-04-04] MEDS: FOLIC ACID 1 MG TABLET (FP) PO SCH (09:40)
[2023-04-04] MEDS: THIAMINE HCL 100 MG TABLET (FP) PO SCH (09:40)
[2023-04-04] MEDS: MULTIVITAMINS (DAILY MVI) TABLET (FP) PO SCH (09:40)
[2023-04-04] MEDS: PANTOPRAZOLE 40 MG TABLET PO SCH (09:40)
[2023-04-04] MEDS: RIFAXIMIN 550 MG TABLET PO SCH ×2 (09:40→21:41)
[2023-04-04] MEDS: metoPROLOL SUCCINATE 25 MG TAB.SR.24H (FP) PO SCH (09:41)
[2023-04-04] MEDS: MINERAL OIL/PET HY-PHL TOPICAL OINTMENT 454 GM JAR TP SCH ×2 (09:43→21:41)
[2023-04-04 09:48] LABS: POTASSIUM 4.3 mmol/L (3.5-5.1)
[2023-04-04] MEDS: SACUBITRIL/VALSARTAN 24 MG-26 MG TABLET PO SCH ×2 (10:02→21:42)
[2023-04-04 10:08] LABS: ALBUMIN 1.9 g/dl (3.4-5.0); CALCIUM 8.4 mg/dL (8.5-10.1)
[2023-04-04 10:09] LABS: MAGNESIUM 1.6 mg/dL (1.8-2.4)
[2023-04-04 10:11] LABS: CREATININE 1.3 mg/dL (0.55-1.3); PHOSPHOROUS 2.6 mg/dL (2.5-4.9)
[2023-04-04 10:13] LABS: BILIRUBIN,TOTAL 2.6 mg/dL (0.2-1)
[2023-04-04 10:15] LABS: TOT PROT 5.9 g/dl (6.4-8.2)
[2023-04-04] MEDS ORDERED: SODIUM CHLORIDE 1,000 ML IV SCH (10:30)
[2023-04-04] MEDS ORDERED: MAGNESIUM 1GM/D5W - 1 GM/100 ML IVPB IVPB ONE (14:45)
[2023-04-04 15:05] VITALS: RESP 18
[2023-04-04] MEDS: SENNOSIDES 8.8 MG/5 ML SYRUP PO SCH (21:43)
[2023-04-05 09:30] LABS: POTASSIUM 4.2 mmol/L (3.5-5.1)
[2023-04-05 09:34] LABS: ALBUMIN 1.8 g/dl (3.4-5.0); BLOOD UREA NITROGEN 15.4 mg/dL (7-18); CALCIUM 8.1 mg/dL (8.5-10.1); MAGNESIUM 1.6 mg/dL (1.8-2.4)
[2023-04-05 09:37] LABS: CREATININE 1.2 mg/dL (0.55-1.3)
[2023-04-05 09:39] LABS: BILIRUBIN,TOTAL 2.3 mg/dL (0.2-1); TOT PROT 5.5 g/dl (6.4-8.2)
[2023-04-05] MEDS: SPIRONOLACTONE 25 MG TABLET PO SCH (09:46)
[2023-04-05] MEDS: LACTULOSE 20 GM/30 ML UDC (FOR ORAL USE ONLY) PO SCH (09:46)
[2023-04-05] MEDS: SACUBITRIL/VALSARTAN 24 MG-26 MG TABLET PO SCH (09:46)
[2023-04-05] MEDS: metoPROLOL SUCCINATE 25 MG TAB.SR.24H (FP) PO SCH (09:47)
[2023-04-05] MEDS: THIAMINE HCL 100 MG TABLET (FP) PO SCH (09:49)
[2023-04-05] MEDS: RIFAXIMIN 550 MG TABLET PO SCH (09:49)
[2023-04-05] MEDS: FOLIC ACID 1 MG TABLET (FP) PO SCH (09:49)
[2023-04-05] MEDS: MULTIVITAMINS (DAILY MVI) TABLET (FP) PO SCH (09:49)
[2023-04-05] MEDS: PANTOPRAZOLE 40 MG TABLET PO SCH (09:49)
[2023-04-05] MEDS: prednisoLONE SODIUM PHOSPHATE 15 MG/5 ML ORAL SOLN BOTTLE PO SCH (09:50)
[2023-04-05 10:42] VITALS: TEMP 98.6
[2023-04-05] MEDS ORDERED: MAGNESIUM SULF 50% (8.12 MEQ/2 ML-1 GM VIAL) IVPB ONE (11:15)
[2023-04-05] MEDS: MINERAL OIL/PET HY-PHL TOPICAL OINTMENT 454 GM JAR TP SCH (11:33)
[2023-04-05 13:30] VITALS: BP 110/55; PULSE 85
== END 2023-04-05 13:30 | disposition home or self-care (01) | DRG 683 ==
LOC: JER 12:32 → JERBED 16:01 → J4W 04-01 02:19 → OBSVTOIN 04-01 15:42 → J5S 04-03 12:01
PROVIDERS: ADMIT Internal Medicine; ATTEND Internal Medicine
DX: N17.9 Acute kidney failure, unspecified (principal); E87.20 Acidosis, unspecified; I42.8 Other cardiomyopathies; I50.42 Chronic combined systolic (congestive) and diastolic (congestive) heart failure; I24.8 Other forms of acute ischemic heart disease; I11.0 Hypertensive heart disease with heart failure; I48.0 Paroxysmal atrial fibrillation; I48.91 Unspecified atrial fibrillation; K59.00 Constipation, unspecified; D69.6 Thrombocytopenia, unspecified; D64.9 Anemia, unspecified; R33.9 Retention of urine, unspecified; K76.89 Other specified diseases of liver; K60.2 Anal fissure, unspecified; K70.30 Alcoholic cirrhosis of liver without ascites; R94.31 Abnormal electrocardiogram [ECG] [EKG]; R26.81 Unsteadiness on feet; Z91.148 Patient's other noncompliance with medication regimen for other reason; Z95.0 Presence of cardiac pacemaker; Z95.2 Presence of prosthetic heart valve
CPT/HCPCS: 0241U-QW; 36415; 71045-TC-FY; 74177-TC; 76775-TC; 80053; 81003; 82140; 82248; 82550; 82803; 83605; 83735; 84100; 84153; 84484; 85025; 85027; 85032; 85610; 85730; 86850; 86900; 86901; 87086; 93005; 93010; 99285-25; G0378